=== PATIENT | male | born 1940 | race Caucasian/White ===

== ENCOUNTER 2018-10-03 09:45 | Emergency (ER) | payer MEDICARE, MEDICAID ==
--- OUTSIDE RECORDS SUMMARY | 2018-10-03 10:07 | XMS REPORT | Continuity of Care Document ---
:1940 External Reference #:[id number] Author Name Inder Ford M.D., [facility] Address [address] [place] [address] Care Team Providers Name Role Phone Kayla Whitten MD Care Team Information Mid Level Net Developer Unavailable Kayla Whitten MD Primary Care Physician Unavailable Payers Date Identification Numbers Payment Provider Subscriber Policy Number: [id number] Medicare Jatin Cárdenas PayID: [id number] [address] [place] [address] Policy Number: [id number] Medicaid Jatin Cárdenas Group Name: 1 2 [address] PayID: [id number] [place] [address] Advance Directives Description No Information Available Problems Active Problems Provider Date Benign essential hypertension Aston Hanson MD Onset: 01/06/2016 Mixed hyperlipidemia Aston Hanson MD Onset: 01/06/2016 Pure hypercholesterolemia Jakob Barba M.D. Onset: 09/26/2018 Family History Date Family Member(s) Observation Comments First Brother Alcoholism First Brother Fibromyalgia Social History Type Date Description Comments Sex Unknown Education Highest level completed, elementary school Marital Status Single Lives With Assisted Living alf elian Home Environment Lives In Adult Home Diet Patient is on a puree diet Occupation Disabled Occupation [employer] Work Status Retired Tobacco Use Start: Unknown End: Quit Unknown Smoking Status Reviewed: 09/26/18 Quit ETOH Use Denies alcohol use Recreational Drug Use Denies Drug Use Tobacco Use Start: Unknown End: Patient is a former Unknown smoker Exercise Type/Frequency Does not exercise Allergies, Adverse Reactions, Alerts Active Allergies Reaction Severity Comments Date Penicillin 01/13/2016 Aspirin 01/13/2016 Levofloxacin 01/13/2016 Simvastatin 01/13/2016 Simvastatin 01/19/2017 Levofloxacin 01/19/2017 Medications Active Medications SIG Qnty Indications Ordering Date Provider Metoprolol Tartrate Take 2 Tablets By 360tabs I48.0 Inder Ford 09/26 Mouth Twice Daily Agustin Zuñiga, FACC 9 25mg Tablets Active Life Convex Use use ad directed 1units K81.9 Freda, 1-pc Urostomy over the perc Christopher H., 9 Pouch/Durahesive/22 cholecystostomy drain Agustin mm opening Pouch Misc Divalproex Sodium 1 tab by mouth twice Unknown a day [address] Magaña 1 tab by mouth twice 60tabs Inder Ford 5mg Tablets daily Agustin Zuñiga, FACC 0 Senna 2 po once daily Unknown 8.6mg Tablets 0 Magnesium-Oxide 1 by mouth every day 30tabs Inder Ford Agustin Zuñiga, FACC 0 400(241.3mg) mg Tablets Glipizide ER 1 by mouth every day Unknown 2.5mg with dinner 0 Tablets ER 24HR Glipizide 1 by mouth once daily Unknown 10mg 0 Tablets Budesonide 1 by mouth three Unknown 3mg Caps times a day 0 DR Andrae Ranitidine 150 1 tab by mouth daily Unknown Maximum Strength 0 150mg Tablets Fiber-Lax 1 by mouth every day Unknown 625mg 0 Tablets Clopidogrel 1 by mouth every day Unknown Bisulfate 0 75mg Tablets Acetaminophen 2 by mouth every 4 Unknown 325mg hours as needed 0 Tablets Triple Antibiotic as Directed Unknown 0 3.5-400-5000 Ointment Phenytoin Sodium 2 capsules Twice Unknown Extended Daily 0 100mg Capsules Lisinopril Take 1 Tablet By 90tabs Inder Ford 2.5mg Mouth Every Day Agustin Zuñiga, FACC 0 Tablets Debrox 1-5 drop in right ear Unknown 6.5% twice a day x 3- 4 0 Solution days Citalopram 1 by mouth every day Unknown Hydrobromide 0 10mg Tablets Glucophage 1 by mouth twice a Unknown 500mg day 0 Tablets Diabetic Tussin uad Unknown 0 100mg/5ML Liquid Exelon apply 1 patch daily Unknown 9.5mg/24HR 0 Patches 24HR Atorvastatin 1 by mouth every day Unknown Calcium 0 20mg Tablets Multi-Day Vitamins 1 by mouth every day Unknown 0 Tablets History Medications Lorazepam take 1 tablet once. 1tabs F41.9 Aston Hanson, 05/03/2016 - 1mg Tablets MD 01/19/2017 Metoprolol Tartrate take one tablet by I48.0 Unknown - mouth twice daily 09/26/2018 100mg Tablets Apriso 2 caps by mouth Unknown - 0.375gm Caps ER twice a day 09/20/2018 24HR Famotidine 1 tab by mouth Unknown - 40mg Tablets every day Unknown Cure-ALL as Directed Unknown - Cream 09/20/2018 Cranberry Juice as Directed Unknown - Extract Unknown 1000mg Capsules Glimepiride 1 by mouth every Unknown - 4mg Tablets day Unknown Vitamin D3 High 1 by mouth every Unknown - Potency day Unknown 1000Unit Capsules Ferrous Sulfate 1 by mouth every Unknown - day Unknown 325(65Fe) mg Tablets Plavix 1 by mouth every Unknown - 75mg Tablets day Unknown Tylenol 2 by mouth every 4 Unknown - 325mg Tablets hours as needed Unknown Dilantin 200 mg po bid Unknown - 100mg Capsules Unknown Celexa one po @ hs Unknown - 10mg Tablets Unknown Antacid 10 milliliters Unknown - every 8 hours as 02/09/2017 [id number] needed Suspension Loperamide HCL 1 by mouth after Unknown - 2mg each unformed bm Unknown Tablets (max 8 times daily) Fiber-Lax 1 by mouth prn Unknown - 500mg Tablets Unknown Metformin HCL 1 by mouth twice a Unknown - 500mg day 01/19/2017 Tablets Amaryl take one bid Unknown - 2mg Tablets Unknown Levothyroxine Sodium 1 by mouth every Unknown - day Unknown 50mcg Tablets Ascorbic Acid 1 by mouth every Unknown - 500mg day 01/19/2017 Tablets Vitamin D 1 po daily Unknown - 3000Units Unknown Immunizations CPT Code Status Date Vaccine Lot # [id number] Given 03/21/2000 flu vaccination 76229 Given 03/10/1999 Influenza Virus Vaccine 60158 Given 03/10/1999 Influenza Virus Whole 63637 Given 03/18/1998 Influenza Virus Vaccine 04316 Given 04/24/1997 Influenza Virus Vaccine 35059 Given 05/23/1996 Influenza Virus Vaccine 81110 Given 07/13/1995 Tetnus Injection 16937 Given 07/13/1995 DT Vaccine Younger Than 7 Yrs 35581 Given 04/21/1994 Influenza Virus Vaccine Vital Signs Date Vital Result Comment 09/26/2018 3:15pm BP Systolic Sitting Right Arm 129 mmHg BP Diastolic Sitting Right Arm 56 mmHg Heart Rate 68 /min Respiratory Rate 16 /min Height 67 inches 5'7" Weight 135.00 lb BMI (Body Mass Index) 21.1 kg/m2 BSA (Body Surface Area) 1.71 m2 Snelling body weight in kilograms 67 kg O2 % BldC Oximetry 95 % ra 09/20/2018 11:09am BP Systolic 105 mmHg BP Diastolic 58 mmHg Heart Rate 58 /min Height 67 inches 5'7" Weight 141.00 lb BMI (Body Mass Index) 22.1 kg/m2 BSA (Body Surface Area) 1.74 m2 Snelling body weight in kilograms 67 kg O2 % BldC Oximetry 99 % 01/19/2017 11:48am BP Systolic 142 mmHg BP Diastolic 80 mmHg Height 67 inches 5'7" Weight 165.00 lb BMI (Body Mass Index) 25.8 kg/m2 BSA (Body Surface Area) 1.86 m2 Snelling body weight in kilograms 67 kg 05/03/2016 1:50pm BP Systolic Sitting Left Arm 122 mmHg BP Diastolic Sitting Left Arm 60 mmHg Heart Rate 78 /min Height 67 inches 5'7" Weight 167.00 lb BMI (Body Mass Index) 26.2 kg/m2 BSA (Body Surface Area) 1.87 m2 O2 % BldC Oximetry 94 % 01/13/2016 2:27pm BP Systolic Sitting Right Arm 132 mmHg BP Diastolic Sitting Right Arm 68 mmHg Heart Rate 91 /min Respiratory Rate 16 /min Height 67 inches 5'7" Weight 171.00 lb BMI (Body Mass Index) 26.8 kg/m2 BSA (Body Surface Area) 1.89 m2 Snelling body weight in kilograms 67 kg O2 % BldC Oximetry 95 % Results Test Date Facility Test Result H/L Range Note Xray 02/15/2017 [facility] - Radiology Gallbladder gbef 78%; wnl [address] ([address]) [place] [address] [phone] CBC 01/05/2017 [facility] White Blood Count 5.9 K/uL N 3.4-10.5 1 [address] [place] [address] [phone] Red Blood Count 4.00 M/uL Low 4.20-5.80 Hemoglobin 12.6 gm/dL Low 12.8-17.0 Hematocrit 36.1 % Low 38.0-48.0 Mean Cell Volume 90.3 fl N 80.0-96.0 Mean Corpuscular HGB 31.5 pg N 27.0-33.0 Mean Corpuscular HGB Conc 34.9 g/dL N 31.7-36.0 Platelet Count 188 K/uL N 150-400 Red Cell Distri Width %CV 14.1 % N 11.6-15.8 Mean Platelet Volume 9.9 fL N 6.6-10.6 Basic Metabolic Panel 01/05/2017 [facility] Glucose 130 mg/dL High 74-106 [address] [place], [place] [id number] [phone] BUN 9 mg/dL N 7-18 Creatinine 0.4 mg/dL Low 0.6-1.3 Glom Filtration Rate, Estimate >60 mL/min >60 If >60 mL/min >60 2 BUN/Creat 22.5 ratio Sodium 146 mmol/L High 136-145 Potassium 3.4 mmol/L Low 3.5-5.1 Chloride 114 mmol/L High 98-107 Carbon Dioxide 23 mmol/L N 21-32 Anion Gap 9 mEq/L N 8-16 Calcium 8.4 mg/dL Low 8.5-10.1 Capillary blood 01/05/2017 N2N/CCD Import Capillary blood 136 High 70- 110 glucose glucose measurement measurement by by glucometer glucometer (mass/volume) WBC # Bld Auto 01/05/2017 N2N/CCD Import WBC # Bld Auto 5.9 3.4-10.5 Sodium SerPl-sCnc 01/05/2017 N2N/CCD Import Sodium SerPl-sCnc 144 136- 145 RDW RBC Auto-Rto 01/05/2017 N2N/CCD Import RDW RBC Auto-Rto 14.1 11.6- 15.8 Potassium 01/05/2017 N2N/CCD Import Potassium 3.4 Low 3.5-5.1 SerPl-sCnc SerPl-sCnc Platelets 01/05/2017 N2N/CCD Import Platelets 188 150-400 [#/volume] in [#/volume] in Blood Blood by by Automated count Automated count PMV Bld Auto 01/05/2017 N2N/CCD Import PMV Bld Auto 9.9 6.6-10.6 MCV RBC Auto 01/05/2017 N2N/CCD Import MCV RBC Auto 90.3 80.0-96.0 Hct VFr Bld Auto 01/05/2017 N2N/CCD Import Hct VFr Bld Auto 36.1 Low 38.0 -48.0 Basic Metabolic 01/05/2017 [facility] Glucose 131 High 74-[address] mg/dL [place], [place] [id number] [phone] BUN 11 mg/dL N 7-18 Creatinine 0.5 mg/dL Low 0.6-1.3 Glom Filtration Rate, Estimate >60 mL/min >60 If >60 mL/min >60 3 BUN/Creat 22.0 ratio Sodium 144 mmol/L N 136-145 Potassium 3.4 mmol/L Low 3.5-5.1 Chloride 113 mmol/L High 98-107 Carbon Dioxide 23 mmol/L N 21-32 Anion Gap 8 mEq/L N 8-16 Calcium 8.6 mg/dL N 8.5-10.1 Laboratory test 01/05/2017 [facility] C-Reactive 19.5 mg/L High <3.[address] Protein,Quant [place], [place] [id number] [phone] Anion Gap 01/05/2017 N2N/CCD Import Anion Gap 8 8-16 SerPl-sCnc SerPl-sCnc Automated 01/05/2017 N2N/CCD Import Automated 31.5 27.0-33 erythrocyte mean erythrocyte mean .0 corpuscular corpuscular hemoglobin hemoglobin (mass per erythrocyte) Automated 01/05/2017 N2N/CCD Import Automated 34.9 31.7-36 erythrocyte mean erythrocyte mean .0 corpuscular corpuscular hemoglobin hemoglobin concentration measurement (mass/volume) BUN SerPl-mCnc 01/05/2017 N2N/CCD Import BUN SerPl-mCnc 11 7-18 BUN/Creat SerPl 01/05/2017 N2N/CCD Import BUN/Creat SerPl 22.0 Glucose 01/05/2017 N2N/CCD Import Glucose 131 High 74-106 [Mass/volume] in [Mass/volume] in Serum or Plasma Serum or Plasma Creat SerPl-mCnc 01/05/2017 N2N/CCD Import Creat SerPl-mCnc 0.5 Low 0.6- 1.3 Chloride 01/05/2017 N2N/CCD Import Chloride 113 High 98-107 SerPl-sCnc SerPl-sCnc Blood 01/05/2017 N2N/CCD Import Blood 4.00 Low 4.20-5. erythrocytes erythrocytes 80 automated count automated count (number/volume) (number/volume) Blood hemoglobin 01/05/2017 N2N/CCD Import Blood hemoglobin 12.6 Low 12.8 -17 measurement measurement .0 (mass/volume) (mass/volume) Co2 SerPl-sCnc 01/05/2017 N2N/CCD Import Co2 SerPl-sCnc 23 21-32 Calcium 01/05/2017 N2N/CCD Import Calcium 8.6 8.5-10. SerPl-mCnc SerPl-mCnc 1 Protime 01/04/2017 [facility] Protime 22.2 High 12.0-[address] seconds .4 [place] [address] [phone] Inr 2.0 High 0.9-1.1 4 Laboratory test 01/04/2017 [facility] Act Partial 45.9 High 23.4-35.0 [address] [place] [place] [address] [phone] Serum or plasma 01/04/2017 N2N/CCD Import Serum or plasma 0.2 0.2-1.0 total bilirubin total bilirubin measurement measurement (mass/ (mass/volume) Prot SerPl-mCnc 01/04/2017 N2N/CCD Import Prot SerPl-mCnc 5.8 Low 6.4- 8.2 Globulin Ser 01/04/2017 N2N/CCD Import Globulin Ser 3.3 1.9-4.3 Calc-mCnc Calc-mCnc Aspartate 01/04/2017 N2N/CCD Import Aspartate 48 High 15-37 aminotransferase aminotransferase [Enzymatic [Enzymatic activity/vol activity/volume] in Serum or Plasma Albumin/Glob 01/04/2017 N2N/CCD Import Albumin/Glob 0.8 SerPl SerPl Albumin 01/04/2017 N2N/CCD Import Albumin 2.5 Low 3.4-5.0 SerPl-mCnc SerPl-mCnc Alt SerPl-cCnc 01/04/2017 N2N/CCD Import Alt SerPl-cCnc 74 12-78 Alp SerPl-cCnc 01/04/2017 N2N/CCD Import Alp SerPl-cCnc 167 High 45-117 Laboratory test 01/04/2017 [facility] Magnesium 1.6 Low 1.8-2.[address] mg/dL [place], [place] [id number] [phone] C-Reactive Protein,Quant 28.2 mg/L High <3.0 Comprehensive Metabolic 01/04/2017 [facility] Glucose 109 mg/dL High 74-[address] [place], [place] [id number] [phone] BUN 7 mg/dL N 7-18 Creatinine 0.5 mg/dL Low 0.6-1.3 Glom Filtration Rate, Estimate >60 mL/min >60 If >60 mL/min >60 6 BUN/Creat 14.0 ratio Sodium 147 mmol/L High 136-145 Potassium 3.5 mmol/L N 3.5-5.1 Chloride 115 mmol/L High 98-107 Carbon Dioxide 23 mmol/L N 21-32 Anion Gap 9 mEq/L N 8-16 Calcium 8.5 mg/dL N 8.5-10.1 Total Protein 5.8 g/dL Low 6.4-8.2 Albumin 2.5 g/dL Low 3.4-5.0 Globulin 3.3 g/dL N 1.9-4.3 Alb/Glob 0.8 ratio Bilirubin,Total 0.2 mg/dL N 0.2-1.0 Sgot/Ast 48 U/L High 15-37 SGPT/Alt 74 U/L N 12-78 Alkaline Phosphatase 167 U/L High 45-117 Basic Metabolic Panel 01/04/2017 [facility] Glucose 108 mg/dL High 74-106 [address] [place] [address] [phone] BUN 7 mg/dL N 7-18 Creatinine 0.5 mg/dL Low 0.6-1.3 Glom Filtration Rate, Estimate >60 mL/min >60 If >60 mL/min >60 7 BUN/Creat 14.0 ratio Sodium 147 mmol/L High 136-145 Potassium 3.6 mmol/L N 3.5-5.1 Chloride 115 mmol/L High 98-107 Carbon Dioxide 24 mmol/L N 21-32 Anion Gap 8 mEq/L N 8-16 Calcium 8.6 mg/dL N 8.5-10.1 CBC 01/04/2017 [facility] White Blood Count 4.7 K/uL N 3.4-10.5 [address] [place] [address] [phone] Red Blood Count 3.95 M/uL Low 4.20-5.80 Hemoglobin 12.5 gm/dL Low 12.8-17.0 Hematocrit 36.0 % Low 38.0-48.0 Mean Cell Volume 91.1 fl N 80.0-96.0 Mean Corpuscular HGB 31.6 pg N 27.0-33.0 Mean Corpuscular HGB Conc 34.7 g/dL N 31.7-36.0 Platelet Count 178 K/uL N 150-400 Red Cell Distri Width %CV 13.9 % N 11.6-15.8 Mean Platelet Volume 11.0 fL High 6.6-10.6 * Miscellaneous 01/04/2017 N2N/CCD Import * Miscellaneous Unable to add studies (set) studies (set) tests Aot Request 01/04/2017 [facility] Aot Request Unable to add [address] te <SEE NOTE> [place] [id number] [phone] Tests to be added: PTT INR PT Prothrombin time 01/04/2017 N2N/CCD Import Prothrombin time 22.2 High 12.0-14.4 (PT) in platelet (PT) in platelet poor plasma by c poor plasma by coagulation assay Comprehensive 01/03/2017 [facility] Glucose 129 mg/dL High 74-106 Metabolic Panel [address] [place] [address] [phone] BUN 7 mg/dL N 7-18 Creatinine 0.5 mg/dL Low 0.6-1.3 Glom Filtration Rate, Estimate >60 mL/min >60 If >60 mL/min >60 9 BUN/Creat 14.0 ratio Sodium 144 mmol/L N 136-145 Potassium 3.6 mmol/L N 3.5-5.1 Chloride 112 mmol/L High 98-107 Carbon Dioxide 23 mmol/L N 21-32 Anion Gap 9 mEq/L N 8-16 Calcium 8.5 mg/dL N 8.5-10.1 Total Protein 5.8 g/dL Low 6.4-8.2 Albumin 2.5 g/dL Low 3.4-5.0 Globulin 3.3 g/dL N 1.9-4.3 Alb/Glob 0.8 ratio Bilirubin,Total 0.2 mg/dL N 0.2-1.0 Sgot/Ast 46 U/L High 15-37 SGPT/Alt 82 U/L High 12-78 Alkaline Phosphatase 154 U/L High 45-117 Basic Metabolic Panel 01/03/2017 [facility] Glucose 130 mg/dL High 74-106 [address] [place] [address] [phone] BUN 7 mg/dL N 7-18 Creatinine 0.5 mg/dL Low 0.6-1.3 Glom Filtration Rate, Estimate >60 mL/min >60 If >60 mL/min >60 10 BUN/Creat 14.0 ratio Sodium 145 mmol/L N 136-145 Potassium 3.6 mmol/L N 3.5-5.1 Chloride 115 mmol/L High 98-107 Carbon Dioxide 23 mmol/L N 21-32 Anion Gap 7 mEq/L Low 8-16 Calcium 8.6 mg/dL N 8.5-10.1 CBC 01/03/2017 [facility] White Blood Count 4.8 K/uL N 3.4-10.5 [address] [place] [address] [phone] Red Blood Count 3.73 M/uL Low 4.20-5.80 Hemoglobin 11.9 gm/dL Low 12.8-17.0 Hematocrit 34.4 % Low 38.0-48.0 Mean Cell Volume 92.2 fl N 80.0-96.0 Mean Corpuscular HGB 31.9 pg N 27.0-33.0 Mean Corpuscular HGB Conc 34.6 g/dL N 31.7-36.0 Platelet Count 161 K/uL N 150-400 Red Cell Distri Width %CV 14.0 % N 11.6-15.8 Mean Platelet Volume 11.1 fL High 6.6-10.6 Laboratory test 01/03/2017 [facility] Magnesium 1.6 mg/dL Low 1.8-2.4 finding [address] [place] [address] [phone] C-Reactive Protein,Quant 53.0 mg/L High <3.0 Anaerobic blood 01/02/2017 N2N/CCD Import Anaerobic blood No Growth culture culture Bacteria Bld 01/02/2017 N2N/CCD Import Bacteria Bld No Growth Aerobe Cult Aerobe Cult CBC 01/02/2017 [facility] White Blood Count 7.0 K/uL N 3.4-10.5 [address] [place] [address] [phone] Red Blood Count 3.81 M/uL Low 4.20-5.80 Hemoglobin 12.0 gm/dL Low 12.8-17.0 Hematocrit 35.1 % Low 38.0-48.0 Mean Cell Volume 92.1 fl N 80.0-96.0 Mean Corpuscular HGB 31.5 pg N 27.0-33.0 Mean Corpuscular HGB Conc 34.2 g/dL N 31.7-36.0 Platelet Count 152 K/uL N 150-400 Red Cell Distri Width %CV 14.0 % N 11.6-15.8 Mean Platelet Volume 11.1 fL High 6.6-10.6 Comprehensive Metabolic 01/02/2017 [facility] Glucose 131 mg/dL High 74-106 Panel [address] [place] [address] [phone] BUN 12 mg/dL N 7-18 Creatinine 0.5 mg/dL Low 0.6-1.3 Glom Filtration Rate, Estimate >60 mL/min >60 If >60 mL/min >60 11 BUN/Creat 24.0 ratio Sodium 144 mmol/L N 136-145 Potassium 3.9 mmol/L N 3.5-5.1 Chloride 113 mmol/L High 98-107 Carbon Dioxide 22 mmol/L N 21-32 Anion Gap 9 mEq/L N 8-16 Calcium 8.4 mg/dL Low 8.5-10.1 Total Protein 5.9 g/dL Low 6.4-8.2 Albumin 2.5 g/dL Low 3.4-5.0 Globulin 3.4 g/dL N 1.9-4.3 Alb/Glob 0.7 ratio Bilirubin,Total 0.3 mg/dL N 0.2-1.0 Sgot/Ast 71 U/L High 15-37 SGPT/Alt 112 U/L High 12-78 Alkaline Phosphatase 160 U/L High 45-117 Basic Metabolic Panel 01/02/2017 [facility] Glucose 139 mg/dL High 74-[address] [place] [address] [phone] BUN 13 mg/dL N 7-18 Creatinine 0.5 mg/dL Low 0.6-1.3 Glom Filtration Rate, Estimate >60 mL/min >60 If >60 mL/min >60 12 BUN/Creat 26.0 ratio Sodium 144 mmol/L N 136-145 Potassium 3.9 mmol/L N 3.5-5.1 Chloride 113 mmol/L High 98-107 Carbon Dioxide 23 mmol/L N 21-32 Anion Gap 8 mEq/L N 8-16 Calcium 8.4 mg/dL Low 8.5-10.1 Blood Culture 01/02/2017 [facility] Blood Culture NO GROWTH: FINAL [address] Aerobic <SEE NOTE> [place] [address] [phone] Blood Culture Anaerobic NO GROWTH: FINAL <SEE NOTE> 14 Laboratory test 01/02/2017 [facility] Act Partial 45.2 High 23.4-35.[address] [place] [place] [address] [phone] Protime 01/02/2017 [facility] Protime 18.3 High 12.0-14.[address] [place] [address] [phone] Inr 1.6 High 0.9-1.1 15 Blood Culture 01/02/2017 [facility] Blood Culture NO GROWTH: FINAL [address] Aerobic <SEE NOTE> [place] [address] [phone] Blood Culture Anaerobic NO GROWTH: FINAL <SEE NOTE> 17 RDW RBC Auto 01/01/2017 N2N/CCD Import RDW RBC Auto 46.3 36-51 Neutrophils/leuk 01/01/2017 N2N/CCD Import Neutrophils/leuk 91.2 High 33.0-73.0 NFr Bld Auto NFr Bld Auto Neutrophils # Bld 01/01/2017 N2N/CCD Import Neutrophils # Bld 10.83 High 1.8-7.0 Auto Auto Monocytes/leuk 01/01/2017 N2N/CCD Import Monocytes/leuk 5.7 0.0-10.0 NFr Bld Auto NFr Bld Auto Lymphocytes/leuk 01/01/2017 N2N/CCD Import Lymphocytes/leuk 2.9 Low 20.0- 42.0 NFr Bld Auto NFr Bld Auto Lymphocytes 01/01/2017 N2N/CCD Import Lymphocytes 0.34 Low 1.0-4.0 [#/volume] in [#/volume] in Blood by Blood by Automated count Automated count Hgb A1c MFr Bld 01/01/2017 N2N/CCD Import Hgb A1c MFr Bld 7.4 High 4.2- 6.3 Lactic Acid 01/01/2017 [facility] Lactic Acid 1.8 mmol/L N 0.4-1.[address] [place] [address] [phone] Lab Reflex >2.0 for Sepsis? N Lactate 01/01/2017 N2N/CCD Import Lactate 1.8 0.4-1.9 [Moles/volume] in [Moles/volume] in Serum or Plasma Serum or Plasma CBS W/Automated 01/01/2017 [facility] White Blood Count 11.9 High 3.4-10.[address] K/[place] [address] [phone] Red Blood Count 3.80 M/uL Low 4.20-5.80 Hemoglobin 12.0 gm/dL Low 12.8-17.0 Hematocrit 34.9 % Low 38.0-48.0 Mean Cell Volume 91.8 fl N 80.0-96.0 Mean Corpuscular HGB 31.6 pg N 27.0-33.0 Mean Corpuscular HGB Conc 34.4 g/dL N 31.7-36.0 Platelet Count 146 K/uL Low 150-400 Red Cell Distri Width SD 46.3 fl N 36-51 Red Cell Distri Width %CV 14.3 % N 11.6-15.8 Mean Platelet Volume 10.9 fL High 6.6-10.6 Neut% 91.2 % High 33.0-73.0 Lymph % 2.9 % Low 20.0-42.0 Gosper % 5.7 % N 0.0-10.0 Eo% 0.1 % N 0.0-6.6 Bas% 0.1 % N 0.0-1.1 Neut# 10.83 K/uL High 1.8-7.0 Lymph # 0.34 K/uL Low 1.0-4.0 Gosper # 0.68 K/uL N 0.0-0.8 Eos # 0.01 K/uL N 0.0-0.5 Baso # 0.01 K/uL N 0.0-0.1 Glycohemoglobin 01/01/2017 [facility] Glycohemoglobin 7.4 % High 4.2-6.[address] (A1c) [place] [address] [phone] eAG 166 mg/dL Comprehensive Metabolic 01/01/2017 [facility] Glucose 128 mg/dL High 74-[address] [place] [address] [phone] BUN 24 mg/dL High 7-18 Creatinine 0.6 mg/dL N 0.6-1.3 Glom Filtration Rate, Estimate >60 mL/min >60 If >60 mL/min >60 19 BUN/Creat 40.0 ratio Sodium 146 mmol/L High 136-145 Potassium 3.8 mmol/L N 3.5-5.1 Chloride 115 mmol/L High 98-107 Carbon Dioxide 22 mmol/L N 21-32 Anion Gap 9 mEq/L N 8-16 Calcium 8.2 mg/dL Low 8.5-10.1 Total Protein 5.8 g/dL Low 6.4-8.2 Albumin 2.6 g/dL Low 3.4-5.0 Globulin 3.2 g/dL 1.9-4.3 Alb/Glob 0.8 ratio Bilirubin,Total 0.4 mg/dL N 0.2-1.0 Sgot/Ast 140 U/L High 15-37 SGPT/Alt 159 U/L High 12-78 Alkaline Phosphatase 178 U/L High 45-117 Basophils 01/01/2017 N2N/CCD Import Basophils 0.01 0.0-0.1 [#/volume] in [#/volume] in Blood by Blood by Automated count Automated count Basophils/leuk 01/01/2017 N2N/CCD Import Basophils/leuk 0.1 0.0-1.1 NFr Bld Auto NFr Bld Auto Blood glucose 01/01/2017 N2N/CCD Import Blood glucose 166 mean value mean value measurement measurement estimated fro estimated from glycated hemoglobin (mass/volume) Blood monocytes 01/01/2017 N2N/CCD Import Blood monocytes 0.68 0.0-0.8 automated count automated count (number/volume) (number/volume) Eosinophil # Bld 01/01/2017 N2N/CCD Import Eosinophil # Bld 0.01 0.0- 0.5 Auto Auto Eosinophil/leuk 01/01/2017 N2N/CCD Import Eosinophil/leuk 0.1 0.0-6.6 NFr Bld Auto NFr Bld Auto Unloinc 12/31/2016 N2N/CCD Import Unloinc See Note 20 Blood Culture 12/31/2016 [facility] Blood Culture GRAM NEGATIVE [address] Aerobic BA <SEE NOTE> [place] [address] [phone] Quantity FROM BROTH N Blood Culture Anaerobic NO GROWTH: FINAL <SEE NOTE> 22 [id number]-GN67 12/31/2016 [facility] Trimethoprim/Sulfamethoxazole <=[address] [place] [address] [phone] Ampicillin <=2 S Cefazolin <=4 S Ampicillin/Sulbactam <=2 S Ciprofloxacin >=4 R Piperacillin/Tazobactam <=4 S Ceftazidime <=1 S Ceftriaxone <=1 S Cefepime <=1 S Levofloxacin >=8 R Imipenem 0.5 S Gentamicin <=1 S Tobramycin <=1 S Blood Culture 12/31/2016 [facility] Blood Culture NO GROWTH: FINAL [address] Aerobic <SEE NOTE> [place] [address] [phone] Blood Culture Anaerobic NO GROWTH: FINAL <SEE NOTE> 24 Comprehensive Metabolic 12/31/2016 [facility] Glucose 324 mg/dL High 74-[address] [place], [place] [id number] [phone] BUN 24 mg/dL High 7-18 Creatinine 1.0 mg/dL N 0.6-1.3 Glom Filtration Rate, Estimate >60 mL/min >60 If >60 mL/min >60 25 BUN/Creat 24.0 ratio Sodium 142 mmol/L N 136-145 Potassium 3.8 mmol/L N 3.5-5.1 Chloride 110 mmol/L High 98-107 Carbon Dioxide 19 mmol/L Low 21-32 Anion Gap 13 mEq/L N 8-16 Calcium 9.3 mg/dL N 8.5-10.1 Total Protein 6.9 g/dL N 6.4-8.2 Albumin 3.3 g/dL Low 3.4-5.0 Globulin 3.6 g/dL N 1.9-4.3 Alb/Glob 0.9 ratio Bilirubin,Total 0.8 mg/dL N 0.2-1.0 Sgot/Ast 339 U/L High 15-37 SGPT/Alt 252 U/L High 12-78 Alkaline Phosphatase 233 U/L High 45-117 Blood platelet 12/31/2016 N2N/CCD Import Blood platelet Normal adequacy adequacy detection by detection by light microsc light microscopy Eosinophil % 12/31/2016 N2N/CCD Import Eosinophil % 1 0-5 Lymphocytes/100 12/31/2016 N2N/CCD Import Lymphocytes/100 3 Low 20-42 leukocytes in leukocytes in Blood by Manual Blood by Manual coun count Metamyelocytes/10 12/31/2016 N2N/CCD Import Metamyelocytes/1 2 High -0 0 leukocytes in 00 leukocytes in Blood by Manual c Blood by Manual count Monocytes/100 12/31/2016 N2N/CCD Import Monocytes/100 4 0-10 leukocytes in leukocytes in Blood by Manual Blood by Manual count count Neuts Band/leuk 12/31/2016 N2N/CCD Import Neuts Band/leuk 17 High 0-8 NFr Bld Manual NFr Bld Manual Neuts Seg/leuk 12/31/2016 N2N/CCD Import Neuts Seg/leuk 73 33-73 NFr Bld Manual NFr Bld Manual RBC morphology 12/31/2016 N2N/CCD Import RBC morphology Normal Serum or plasma 12/31/2016 N2N/CCD Import Serum or plasma 8.3 Low 10.0- 20.0 phenytoin phenytoin measurement measurement (mass/volume (mass/volume) Total Cells 12/31/2016 N2N/CCD Import Total Cells 100 Counted Bld Counted Bld Unloinc 12/31/2016 N2N/CCD Import Unloinc Diff Ordered Ketones Ur 12/31/2016 N2N/CCD Import Ketones Ur Trace High Negative Strip.auto-mCnc Strip.auto-mCnc Epithelial cells 12/31/2016 N2N/CCD Import Epithelial cells Very Few None Seen [Presence] in [Presence] in Urine sediment by Urine sediment L by Light microscopy Color Ur 12/31/2016 N2N/CCD Import Color Ur Yellow Yellow Laboratory test 12/31/2016 [facility] Lactic Acid 3.2 mmol/L High 0.4-1.9 26 finding [address] [place] [address] [phone] Leukocyte 12/31/2016 N2N/CCD Import Leukocyte Trace High Negative esterase Ur Ql esterase Ur Ql Strip.auto Strip.auto Mucus [Presence] 12/31/2016 N2N/CCD Import Mucus [Presence] Moderate None Seen in Urine sediment in Urine by Light micros sediment by Light microscopy Nitrite Ur Ql 12/31/2016 N2N/CCD Import Nitrite Ur Ql Negative Negative Strip.auto Strip.auto Prot Ur 12/31/2016 N2N/CCD Import Prot Ur Negative Negative Strip.auto-mCnc Strip.auto-mCnc Specific gravity 12/31/2016 N2N/CCD Import Specific gravity 1.020 1.010- 1.030 of Urine by of Urine by Automated test Automated test strip strip Urine appearance 12/31/2016 N2N/CCD Import Urine appearance Clear Clear determination determination Urine hemoglobin 12/31/2016 N2N/CCD Import Urine hemoglobin Negative Negative detection by detection by automated test automated test strip strip Urine total 12/31/2016 N2N/CCD Import Urine total Negative Negative bilirubin bilirubin detection by detection by automated test automated test strip Urobilinogen Ur 12/31/2016 N2N/CCD Import Urobilinogen Ur 1.0 0.2-1.0 Strip-aCnc Strip-aCnc pH Ur Strip.auto 12/31/2016 N2N/CCD Import pH Ur Strip.auto 5.5 Low 6.5- 7.5 Laboratory test 12/31/2016 [facility] Legionella Negative Negative [address] Antigen,Urine [place], [place] [id number] [phone] Streptococcus 12/31/2016 [facility] Specimen Source Urine . Pneumoniae Ag,Ur [address] [place], [place] [id number] [phone] Streptococcus Pneumoniae Ag,Ur NEGATIVE Negative Body Fluid Culture, Sterile Not Indicated . Organism Id Not indicated. . Please Note: (SEE NOTE) 28 Bacteria 12/31/2016 N2N/CCD Import Bacteria Not . identification by identification by indicated. sterile body fluid sterile body fluid cult culture Bacteria 12/31/2016 N2N/CCD Import Bacteria Not Indicated . identification identification detection in detection in isolate by cu isolate by culture Specimen source 12/31/2016 N2N/CCD Import Specimen source Urine . identification of identification of unspecified spec unspecified specimen Streptococcus 12/31/2016 N2N/CCD Import Streptococcus Negative Negative pneumoniae antigen pneumoniae antigen detection detection Basic Metabolic 01/11/2016 [facility] Basic Metabolic <pending> [address] [place] [address] [phone] Glucose 135 mg/dL High 74-106 BUN 23 mg/dL High 7-18 Creatinine 0.6 mg/dL 0.6-1.3 Glom Filtration Rate, Estimate >60 mL/min >60 If >60 mL/min >60 30 BUN/Creat 38.3 ratio Sodium 145 mmol/L 136-145 Potassium 3.7 mmol/L 3.5-5.1 Chloride 113 mmol/L High 98-107 Carbon Dioxide 23 mmol/L 21-32 Anion Gap 9 mEq/L 8-16 Calcium 8.9 mg/dL 8.5-10.1 Laboratory test 01/11/2016 [facility] C-Reactive 16.6 High <3.[address] Protein,Quant mg/[place] [address] [phone] CBC 01/11/2016 [facility] White Blood Count 7.3 K/uL 3.4-10.5 [address] [place] [address] [phone] Red Blood Count 4.69 M/uL 4.20-5.80 Hemoglobin 12.3 gm/dL Low 12.8-17.0 Hematocrit 37.6 % Low 38.0-48.0 Mean Cell Volume 80.2 fl 80.0-96.0 Mean Corpuscular HGB 26.2 pg Low 27.0-33.0 Mean Corpuscular HGB Conc 32.7 g/dL 31.7-36.0 Platelet Count 271 K/uL 150-400 Red Cell Distri Width %CV 22.2 % High 11.6-15.8 Mean Platelet Volume 10.4 fL 6.6-10.6 Laboratory test 01/11/2016 [facility] Path Review: <pending> finding [address] [place] [address] [phone] Laboratory test 01/06/2016 N2N/CCD Import Bedside 217 High 70-110 finding Glucose Laboratory test 01/06/2016 [facility] Vancomycin,Tro 8.0 ug/mL Low 15.0-2 finding [address] ugh 0.0 [place] [address] [phone] Basic Metabolic 01/06/2016 [facility] Glucose 148 mg/dL High 74-106 Panel [address] [place] [address] [phone] BUN 11 mg/dL 7-18 Creatinine 0.7 mg/dL 0.6-1.3 Glom Filtration Rate, Estimate >60 mL/min >60 If >60 mL/min >60 31 BUN/Creat 15.7 ratio Sodium 141 mmol/L 136-145 Potassium 3.8 mmol/L 3.5-5.1 Chloride 109 mmol/L High 98-107 Carbon Dioxide 24 mmol/L 21-32 Anion Gap 8 mEq/L 8-16 Calcium 8.7 mg/dL 8.5-10.1 Laboratory test finding 01/06/2016 [facility] Magnesium 1.9 mg/dL 1.8-2.4 [address] [place] [address] [phone] C-Reactive Protein,Quant 74.9 mg/L High <3.0 CBC 01/06/2016 [facility] White Blood Count 6.3 K/uL 3.4-10.5 [address] [place] [address] [phone] Red Blood Count 4.72 M/uL 4.20-5.80 Hemoglobin 12.0 gm/dL Low 12.8-17.0 Hematocrit 37.7 % Low 38.0-48.0 Mean Cell Volume 79.9 fl Low 80.0-96.0 Mean Corpuscular HGB 25.4 pg Low 27.0-33.0 Mean Corpuscular HGB Conc 31.8 g/dL 31.7-36.0 Platelet Count 207 K/uL 150-400 Red Cell Distri Width %CV 22.2 % High 11.6-15.8 Mean Platelet Volume 10.8 fL High 6.6-10.6 Laboratory test finding 01/06/2016 N2N/CCD Import Carbon Dioxide Level 24 21-32 RDW Coefficient of Variation 22.2 High 11.6-15.8 Sodium Level 141 136-145 Comprehensive Metabolic 01/05/2016 [facility] Glucose 158 mg/dL High 74-106 Panel [address] [place], [place] [address] [phone] BUN 17 mg/dL 7-18 Creatinine 0.5 mg/dL Low 0.6-1.3 Glom Filtration Rate, Estimate >60 mL/min >60 If >60 mL/min >60 32 BUN/Creat 34.0 ratio Sodium 139 mmol/L 136-145 Potassium 3.5 mmol/L 3.5-5.1 Chloride 107 mmol/L 98-107 Carbon Dioxide 24 mmol/L 21-32 Anion Gap 8 mEq/L 8-16 Calcium 8.6 mg/dL 8.5-10.1 Total Protein 6.3 g/dL Low 6.4-8.2 Albumin 3.0 g/dL Low 3.4-5.0 Globulin 3.3 g/dL 1.9-4.3 Alb/Glob 0.9 ratio Bilirubin,Total 0.3 mg/dL 0.2-1.0 Sgot/Ast 70 U/L High 15-37 SGPT/Alt 65 U/L 12-78 Alkaline Phosphatase 97 U/L 45-117 Laboratory test 01/05/2016 [facility] Phenytoin 5.1 ug/mL Low 10.0-20.[address] (Dilantin) [place] [address] [phone] CBC W/Automated 01/05/2016 [facility] White Blood 6.5 K/uL 3.4-10.[address] [place] [address] [phone] Red Blood Count 4.38 M/uL 4.20-5.80 Hemoglobin 11.3 gm/dL Low 12.8-17.0 Hematocrit 34.9 % Low 38.0-48.0 Mean Cell Volume 79.7 fl Low 80.0-96.0 Mean Corpuscular HGB 25.8 pg Low 27.0-33.0 Mean Corpuscular HGB Conc 32.4 g/dL 31.7-36.0 Platelet Count 161 K/uL 150-400 Red Cell Distri Width SD 60.9 fl High 36-51 Red Cell Distri Width %CV 21.9 % High 11.6-15.8 Mean Platelet Volume 10.9 fL High 6.6-10.6 Neut% 74.5 % High 33.0-73.0 Lymph % 10.2 % Low 17.0-56.0 Gosper % 11.3 % High 0.0-10.0 Eo% 3.7 % 0.0-5.0 Bas% 0.3 % 0.1-1.0 Neut# 4.81 K/uL 1.8-7.0 Lymph # 0.66 K/uL Low 1.8-7.0 Gosper # 0.73 K/uL 0.0-0.8 Eos # 0.24 K/uL 0.0-0.5 Baso # 0.02 K/uL Low 0.1-0.2 Glycohemoglobin 01/05/2016 [facility] Glycohemoglobin 6.8 % High 4.2-6.[address] (A1c) [place] [address] [phone] eAG 148 mg/dL Laboratory test 01/05/2016 N2N/CCD Import Basophils # (Auto) 0.02 Low 0.1 -0.2 finding Basophils (%) (Auto) 0.3 0.1-1.0 Eosinophils # (Auto) 0.24 0.0-0.5 Eosinophils (%) (Auto) 3.7 0.0-5.0 Estimated Average Glucose (eAG) 148 Hemoglobin A1c 6.8 High 4.2-6.3 Lymphocytes # (Auto) 0.66 Low 1.8-7.0 Lymphocytes (%) (Auto) 10.2 Low 17.0-56.0 Monocytes # (Auto) 0.73 0.0-0.8 Monocytes (%) (Auto) 11.3 High 0.0-10.0 Neutrophils # (Auto) 4.81 1.8-7.0 Neutrophils (%) (Auto) 74.5 High 33.0-73.0 Red Cell Distribution Width 60.9 High 36-51 Laboratory test 01/05/2016 [facility] Lactic Acid 1.2 mmol/L 0.4-1.9 finding [address] [place] [address] [phone] Laboratory test 01/05/2016 N2N/CCD Import Lactic Acid 1.2 0.4-1.9 finding Level Laboratory test 01/05/2016 [facility] Phenytoin See Note 34 finding [address] [facility] (Dilantin) [place] [address] [phone] Comprehensive 01/04/2016 [facility] Glucose 114 mg/dL High 74-106 Metabolic Panel [address] [place] [address] [phone] BUN 27 mg/dL High 7-18 Creatinine 0.8 mg/dL 0.6-1.3 Glom Filtration Rate, Estimate >60 mL/min >60 If >60 mL/min >60 35 BUN/Creat 33.7 ratio Sodium 140 mmol/L 136-145 Potassium 4.2 mmol/L 3.5-5.1 Chloride 109 mmol/L High 98-107 Carbon Dioxide 21 mmol/L 21-32 Anion Gap 10 mEq/L 8-16 Calcium 8.8 mg/dL 8.5-10.1 Total Protein 7.1 g/dL 6.4-8.2 Albumin 3.2 g/dL Low 3.4-5.0 Globulin 3.9 g/dL 1.9-4.3 Alb/Glob 0.8 ratio Bilirubin,Total 0.2 mg/dL 0.2-1.0 Sgot/Ast 63 U/L High 15-37 SGPT/Alt 55 U/L 12-78 Alkaline Phosphatase 103 U/L 45-117 Laboratory test finding 01/04/2016 [facility] CK 112 U/L 39-[address] [place], [place] [address] [phone] NT-proBNP 666.0 pg/mL High <450 37 Troponin-I < 0.015 ng/mL 38 CBC W/Automated Diff 01/04/2016 [facility] White Blood 9.6 K/uL 3.4-10.[address] [place] [address] [phone] Red Blood Count 4.49 M/uL 4.20-5.80 Hemoglobin 11.5 gm/dL Low 12.8-17.0 Hematocrit 35.9 % Low 38.0-48.0 Mean Cell Volume 80.0 fl 80.0-96.0 Mean Corpuscular HGB 25.6 pg Low 27.0-33.0 Mean Corpuscular HGB Conc 32.0 g/dL 31.7-36.0 Platelet Count 204 K/uL 150-400 Red Cell Distri Width SD 63.1 fl High 36-51 Red Cell Distri Width %CV 22.6 % High 11.6-15.8 Mean Platelet Volume 11.4 fL High 6.6-10.6 Neut% 80.1 % High 33.0-73.0 Lymph % 8.1 % Low 17.0-56.0 Gosper % 8.8 % 0.0-10.0 Eo% 2.7 % 0.0-5.0 Bas% 0.3 % 0.1-1.0 Neut# 7.69 K/uL High 1.8-7.0 Lymph # 0.78 K/uL Low 1.8-7.0 Gosper # 0.85 K/uL High 0.0-0.8 Eos # 0.26 K/uL 0.0-0.5 Baso # 0.03 K/uL Low 0.1-0.2 Laboratory test finding 01/04/2016 [facility] Slide Review See Note [address] [place] [address] [phone] Path Review: See Note 40 Laboratory test 01/04/2016 N2N/CCD Import Manual Slide Review See Note 41 finding (Hematology) Pathologist Review (Hematology) Indicated,Slide Sent Pro-B-Type Natriuretic Peptide 666.0 High <450 Total Creatine Kinase 112 39-308 Laboratory test 01/04/2016 [facility] Legionella Negative Negative [address] Antigen,[place] [address] [phone] Streptococcus 01/04/2016 [facility] Specimen Source Urine . Pneumoniae Ag,Ur [address] [place] [address] [phone] Streptococcus Pneumoniae Ag,Ur NEGATIVE Negative Body Fluid Culture, Sterile Not Indicated . Organism Id Not indicated. . Please Note: See Note 43 Laboratory test finding 01/04/2016 N2N/CCD Import Aerobic Blood No Growth Culture Anaerobic Blood Culture No Growth Laboratory test 01/04/2016 [facility] Troponin-I < 0.015 [address] ng/[place] [address] [phone] Blood Culture 01/04/2016 [facility] Blood Culture See Note [address] [place] [address] [phone] Blood Culture Anaerobic See Note 46 Laboratory test 09/23/2015 N2N/CCD Import Alanine Aminotransferase 46 12 -78 finding (Alt/SGPT) Albumin 3.4 3.4-5.0 Albumin/Globulin Ratio 0.9 Alkaline Phosphatase 117 45-117 Anion Gap 6 Low 8-16 Aspartate Amino Transf (Ast/Sgot) 31 15-37 BUN/Creatinine Ratio 27.1 Basophils # (Auto) 0.02 Low 0.1-0.2 Basophils (%) (Auto) 0.3 0.1-1.0 Blood Urea Nitrogen 19 High 7-18 Calcium Level 7.9 Low 8.5-10.1 Carbon Dioxide Level 25 21-32 Chloride Level 110 High 98-107 Creatinine 0.7 0.6-1.3 Eosinophils # (Auto) 0.21 0.0-0.5 Eosinophils (%) (Auto) 3.2 0.0-5.0 Globulin 3.8 1.9-4.3 Glucose Screen 132 High 74-106 Hematocrit 34.1 Low 38.0-48.0 Hemoglobin 10.7 Low 12.8-17.0 Lymphocytes # (Auto) 1.23 Low 1.8-7.0 Lymphocytes (%) (Auto) 18.9 17.0-56.0 Mean Corpuscular Hemoglobin 23.8 Low 27.0-33.0 Mean Corpuscular Hemoglobin Concent 31.4 Low 31.7-36.0 Mean Corpuscular Volume 75.8 Low 80.0-96.0 Mean Platelet Volume 10.4 6.6-10.6 Monocytes # (Auto) 0.65 0.0-0.8 Monocytes (%) (Auto) 10.0 0.0-10.0 Neutrophils # (Auto) 4.40 1.8-7.0 Neutrophils (%) (Auto) 67.6 33.0-73.0 Platelet Count 250 150-400 Potassium Level 4.2 3.5-5.1 RDW Coefficient of Variation 18.3 High 11.6-15.8 Red Blood Count 4.50 4.20-5.80 Red Cell Distribution Width 48.4 36-51 Sodium Level 141 136-145 Total Bilirubin 0.2 0.2-1.0 Total Protein 7.2 6.4-8.2 White Blood Count 6.5 3.4-10.5 1 HCAP, SEPTIC SHOCK 2 Note: Persistent reduction for 3 months or more in an eGFR <60 mL/min/1.73 m2 defines CKD. Patients with eGFR values >/=60 mL/min/1.73 m2 may also have CKD if evidence of persistent proteinuria is present. The original MDRD equation for estimated GFR is not valid for patients less than 18 years of age. Additional information may be found at [email or web address]. 3 Note: Persistent reduction for 3 months or more in an eGFR <60 mL/min/1.73 m2 defines CKD. Patients with eGFR values >/=60 mL/min/1.73 m2 may also have CKD if evidence of persistent proteinuria is present. The original MDRD equation for estimated GFR is not valid for patients less than 18 years of age. Additional information may be found at [email or web address]. 4 THERAPEUTIC INR RANGE: 2.0 - 3.0 DVT, Pulmonary embolus, prophylaxis against venous thrombosis or systemic embolization in high risk patients. 2.5 - 3.5 Mechanical heart valves 5 Is patient on heparin protocol? N Is patient on anticoagulants? None 6 Note: Persistent reduction for 3 months or more in an eGFR <60 mL/min/1.73 m2 defines CKD. Patients with eGFR values >/=60 mL/min/1.73 m2 may also have CKD if evidence of persistent proteinuria is present. The original MDRD equation for estimated GFR is not valid for patients less than 18 years of age. Additional information may be found at [email or web address]. 7 Note: Persistent reduction for 3 months or more in an eGFR <60 mL/min/1.73 m2 defines CKD. Patients with eGFR values >/=60 mL/min/1.73 m2 may also have CKD if evidence of persistent proteinuria is present. The original MDRD equation for estimated GFR is not valid for patients less than 18 years of age. Additional information may be found at [email or web address]. 8 Unable to add tests NO BLUE TOP DRAWN CALLED TO FLOOR Tests: PTT INR PT Instructions: 9 Note: Persistent reduction for 3 months or more in an eGFR <60 mL/min/1.73 m2 defines CKD. Patients with eGFR values >/=60 mL/min/1.73 m2 may also have CKD if evidence of persistent proteinuria is present. The original MDRD equation for estimated GFR is not valid for patients less than 18 years of age. Additional information may be found at [email or web address]. 10 Note: Persistent reduction for 3 months or more in an eGFR <60 mL/min/1.73 m2 defines CKD. Patients with eGFR values >/=60 mL/min/1.73 m2 may also have CKD if evidence of persistent proteinuria is present. The original MDRD equation for estimated GFR is not valid for patients less than 18 years of age. Additional information may be found at [email or web address]. 11 Note: Persistent reduction for 3 months or more in an eGFR <60 mL/min/1.73 m2 defines CKD. Patients with eGFR values >/=60 mL/min/1.73 m2 may also have CKD if evidence of persistent proteinuria is present. The original MDRD equation for estimated GFR is not valid for patients less than 18 years of age. Additional information may be found at [email or web address]. 12 Note: Persistent reduction for 3 months or more in an eGFR <60 mL/min/1.73 m2 defines CKD. Patients with eGFR values >/=60 mL/min/1.73 m2 may also have CKD if evidence of persistent proteinuria is present. The original MDRD equation for estimated GFR is not valid for patients less than 18 years of age. Additional information may be found at [email or web address]. 13 NO GROWTH: FINAL REPORT 14 NO GROWTH: FINAL REPORT 15 THERAPEUTIC INR RANGE: 2.0 - 3.0 DVT, Pulmonary embolus, prophylaxis against venous thrombosis or systemic embolization in high risk patients. 2.5 - 3.5 Mechanical heart valves 16 NO GROWTH: FINAL REPORT 17 NO GROWTH: FINAL REPORT 18 Elevated levels of HbA1c suggest the need for more aggressive treatment of glycemia. The [place] [employer] recommends that a primary goal of therapy should be a HbA1c of <7% and that physicians should re-evaluate the treatment regimen in patients with HbA1c values consistently >8%. 19 Note: Persistent reduction for 3 months or more in an eGFR <60 mL/min/1.73 m2 defines CKD. Patients with eGFR values >/=60 mL/min/1.73 m2 may also have CKD if evidence of persistent proteinuria is present. The original MDRD equation for estimated GFR is not valid for patients less than 18 years of age. Additional information may be found at [email or web address]. 20 [employer] guidelines require a culture to be performed on CSF specimens negative by bacterial antigen testing (Cap [id number]). Performed at: [address] [id number] [employer]: Jatin Osborn MD, Phone: [phone] 21 GRAM NEGATIVE BACILLUS SEEN ON GRAM STAIN. CALLED Arnaldo SAVAGE AT [phone] 01/01/17 by [facility].BB ESCHERICHIA COLI 22 NO GROWTH: FINAL REPORT 23 NO GROWTH: FINAL REPORT 24 NO GROWTH: FINAL REPORT 25 Note: Persistent reduction for 3 months or more in an eGFR <60 mL/min/1.73 m2 defines CKD. Patients with eGFR values >/=60 mL/min/1.73 m2 may also have CKD if evidence of persistent proteinuria is present. The original MDRD equation for estimated GFR is not valid for patients less than 18 years of age. Additional information may be found at [email or web address]. 26 CALLED LAC TO TEO Horn RN AT [phone] 12/31/16 by [facility].KLS 27 Presumptive negative for L. pneumophila serogroup 1 antigen in urine, suggesting no recent or current infection. Legionnaires' disease cannot be ruled out since other serogroups and species may also cause disease. Performed at: [facility] [id number] [employer]ulator: Jatin Osborn MD, Phone: [phone] 28 [employer] guidelines require a culture to be performed on CSF specimens negative by bacterial antigen testing (CAP [id number]). Performed at: [facility] [id number] [employer]ulator: Jatin Osborn MD, Phone: [phone] 29 QUERY: Is Patient Fasting? Y 30 Note: Persistent reduction for 3 months or more in an eGFR <60 mL/min/1.73 m2 defines CKD. Patients with eGFR values >/=60 mL/min/1.73 m2 may also have CKD if evidence of persistent proteinuria is present. The original MDRD equation for estimated GFR is not valid for patients less than 18 years of age. Additional information may be found at [email or web address]. 31 Note: Persistent reduction for 3 months or more in an eGFR <60 mL/min/1.73 m2 defines CKD. Patients with eGFR values >/=60 mL/min/1.73 m2 may also have CKD if evidence of persistent proteinuria is present. The original MDRD equation for estimated GFR is not valid for patients less than 18 years of age. Additional information may be found at [email or web address]. 32 Note: Persistent reduction for 3 months or more in an eGFR <60 mL/min/1.73 m2 defines CKD. Patients with eGFR values >/=60 mL/min/1.73 m2 may also have CKD if evidence of persistent proteinuria is present. The original MDRD equation for estimated GFR is not valid for patients less than 18 years of age. Additional information may be found at [email or web address]. 33 Elevated levels of HbA1c suggest the need for more aggressive treatment of glycemia. The [place] [employer] recommends that a primary goal of therapy should be a HbA1c of <7% and that physicians should re-evaluate the treatment regimen in patients with HbA1c values consistently >8%. 34 MERGE 35 Note: Persistent reduction for 3 months or more in an eGFR <60 mL/min/1.73 m2 defines CKD. Patients with eGFR values >/=60 mL/min/1.73 m2 may also have CKD if evidence of persistent proteinuria is present. The original MDRD equation for estimated GFR is not valid for patients less than 18 years of age. Additional information may be found at [email or web address]. 36 Specimen slightly Hemolyzed, interpret with caution 37 Specimen slightly Hemolyzed, interpret with caution 38 0.0 - 0.045 ng/mL: Normal 0.046 - 0.5 ng/mL: Suggestive 0.6 - 1.5 ng/mL: Consistent 39 Instrument flagged sample for slide review. Less than 10% Bands seen, no other immature WBC's seen. RBC morphology essentially normal. Platelet estimate=NORMAL 40 INDICATED,SLIDE SENT Hematology Consultation Final Report Case# [id number] Peripheral Blood smear: Peripheral blood was review due to mild anemia. Examination of the peripheral blood confirms a hemogram findings. There is normocytic (low within range MCV) anemia. No nucleated red blood cells are seen. The white blood cells show toxic granualtion. There is slightly increased proportion of neutrophils and decreased lymphocyts. No blasts are seen. Clinical correlation is advised ANGEL GARG MD Reported 01/06/16 at 1642, Report electronically signed 41 Instrument flagged sample for slide review. Less than 10% Bands seen, no other immature WBC's seen. RBC morphology essentially normal. Platelet estimate= Normal 42 Performed at: - [facility] [id number] [employer]: Jatin Osborn MD, Phone: [phone] 43 [employer] guidelines require a culture to be performed on CSF specimens negative by bacterial antigen testing (CAP [id number]). Performed at: - [facility] [id number] [employer]ulator: Jatin Osborn MD, Phone: [phone] 44 0.0 - 0.045 ng/mL: Normal 0.046 - 0.5 ng/mL: Suggestive 0.6 - 1.5 ng/mL: Consistent 45 NO GROWTH: FINAL REPORT 46 NO GROWTH: FINAL REPORT Procedures Date Code Description Status 09/26/2018 59776 EKG-Tracing And Report Completed 01/02/2017 04859 Echocardiogram Complete Completed 03/17/2015 52682 EKG Interpretation And Report Only Completed 07/01/2013 03206 EKG Interpretation And Report Only Completed 01/28/2010 30775 EKG Interpretation And Report Only Completed 02/10/2009 75453 EKG Interpretation And Report Only Completed 10/01/2007 63010 EKG Interpretation And Report Only Completed 01/12/2000 97743 Remove Impacted Cerumen Completed 07/24/1998 79118 Tympanometry Completed 07/24/1998 86312 Remove Impacted Cerumen Completed 06/14/1997 33406 EKG Interpretation And Report Only Completed 06/03/1996 46242 EKG Interpretation And Report Only Completed 05/10/1996 63476 EKG Interpretation And Report Only Completed 04/21/1994 34765 Tympanometry Completed Encounters Type Date Location Provider Dx Diagnosis Office Visit 09/26/2018 Cardiology Office Barry Clifford I48.0 Paroxysmal atrial 2:20p B., PA fibrillation I10 Essential (primary) hypertension E78.5 Hyperlipidemia, unspecified R94.31 Abnormal electrocardiogram [ECG] [EKG] Office Visit 09/20/2018 Surgical Katharine Barba81.9 Cholecystitis, 11:00a Office Jakob Ocampo, unspecified M.D. Office Visit 03/01/2017 Surgical Katharine Barba81.9 Cholecystitis, 2:00p Office Jakob Ocampo, unspecified M.D. F03.90 Unspecified dementia without behavioral disturbance Office Visit 02/09/2017 Surgical Katharine Barba81.9 Cholecystitis, 9:00a Office Jakob Ocampo, unspecified M.D. F03.90 Unspecified dementia without behavioral disturbance Office Visit 01/19/2017 Surgical Office Katharine Barba81.9 Cholecystitis, 11:30a Christopher H., unspecified M.D. Office Visit 01/03/2017 Surgical Office Katharine Barba81.9 Cholecystitis, 10:27a Christopher H., unspecified M.D. Office Visit 01/03/2017 Physical Florecita Duenas, R78.81 Bacteremia 3:36p Medicine & M.D. 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 at [id number] - Barry Clifford, PAI48.0 Paroxysmal atrial fibrillationNew Medication: Metoprolol Tartrate 25 mg - Take 2 Tablets By Mouth Twice DailyComments:Given documented bradycardia at times by staff and relatively low BP, will decrease metoprolol to 50mg BID. He will continue OAC. No further testing as he is compensated and without exertional symptoms. Thyroid function is followed by [facility].I10 Essential (primary) hypertensionComments:Monitor with reduction in BB as above.E78.5 Hyperlipidemia, unspecifiedComments:Followed by PCP.R94.31 Abnormal electrocardiogram [ECG] [EKG]Comments:Avoid QT prolonging antibiotics. Will monitor with serial ECGs.AllFollow up:6-8 weeks
--- OUTSIDE RECORDS SUMMARY | 2018-10-03 10:08 | XMS REPORT | Continuity of Care Document ---
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 Onset: 09/26/2018 Family History Date Family Member(s) Observation Comments First Brother Alcoholism First Brother Fibromyalgia Social History Type Date Description Comments Sex Unknown Education Highest level completed, elementary school Marital Status Single Lives With Assisted Living [facility] Home Environment Lives In Adult Home Diet Patient is on a puree diet Occupation Disabled Occupation [employer] Work Status Retired Tobacco Use Start: [...] perc Christopher H., 9 Pouch/Durahesive/22 cholecystostomy drain M.D. mm opening Pouch Misc Divalproex Sodium 1 [...] 3mg Caps times a day 0 DR Andrea Ranitidine 150 1 tab by mouth daily [...] Unknown - every 8 hours as 02/09/[phone] needed Suspension Loperamide HCL 1 by mouth [...] CPT Code Status Date Vaccine Lot # 65240 Given 03/21/2000 flu vaccination 77744 Given 03/10/1999 Influenza Virus Vaccine 54221 Given 03/10/1999 Influenza Virus Whole 11566 Given 03/18/1998 Influenza Virus Vaccine 00191 Given 04/24/1997 Influenza Virus Vaccine 99137 Given 05/23/1996 Influenza Virus Vaccine 07407 Given 07/13/1995 Tetnus Injection 67659 Given 07/13/1995 DT Vaccine Younger Than 7 Yrs 18269 Given 04/21/1994 Influenza Virus Vaccine Vital Signs Date Vital Result Comment 09/26/2018 3:15pm BP Systolic Sitting Right Arm 129 mmHg BP Diastolic Sitting Right Arm 56 mmHg Heart Rate 68 /min Respiratory Rate 16 /min Height 67 inches 5'7" Weight 135.00 lb BMI (Body Mass Index) 21.1 kg/m2 BSA (Body Surface Area) 1.71 m2 [place] body weight in kilograms 67 kg O2 % BldC Oximetry 95 % ra 09/20/2018 11:09am BP Systolic 105 mmHg BP Diastolic 58 mmHg Heart Rate 58 /min Height 67 inches 5'7" Weight 141.00 lb BMI (Body Mass Index) 22.1 kg/m2 BSA (Body Surface Area) 1.74 m2 [place] body weight in kilograms 67 kg O2 % BldC Oximetry 99 % 01/19/2017 11:48am BP Systolic 142 mmHg BP Diastolic 80 mmHg Height 67 inches 5'7" Weight 165.00 lb BMI (Body Mass Index) 25.8 kg/m2 BSA (Body Surface Area) 1.86 m2 [place] body weight in kilograms 67 kg 05/03/2016 [...] kg/m2 BSA (Body Surface Area) 1.89 m2 [place] body weight in kilograms 67 kg O2 % BldC Oximetry 95 % Results Test Date Facility Test Result H/L Range Note Xray 02/15/2017 [facility] - Radiology Gallbladder gbef 78%; wnl [address] ([place]) W/[place] [address] [phone] CBC 01/05/2017 [facility] White Blood Count 5.9 K/uL N 3.4-10.5 1 [address] [place] [address] [phone] Red Blood Count 4.00 M/uL Low 4.20-5.80 [...] fL N 6.6-10.6 Basic Metabolic Panel 01/05/2017 [facility] Glucose 130 mg/dL High 74-106 [address] [place] [address] [phone] BUN 9 mg/dL N 7-18 Creatinine 0.4 [...] 36.1 Low 38.0 -48.0 Basic Metabolic 01/05/2017 [facility] Glucose 131 High 74-[address] mg/[place] [address] [phone] BUN 11 mg/dL N 7-18 Creatinine 0.5 mg/dL Low 0.6-1.3 Glom Filtration Rate, Estimate >60 mL/min >60 If >60 mL/min >60 3 BUN/Creat 22.0 ratio Sodium 144 mmol/L N 136-145 Potassium 3.4 mmol/L Low 3.5-5.1 Chloride 113 mmol/L High 98-107 Carbon Dioxide 23 mmol/L N 21-32 Anion Gap 8 mEq/L N 8-16 Calcium 8.6 mg/dL N 8.5-10.1 Laboratory test 01/05/2017 [facility] C-Reactive 19.5 mg/L High <3.[address] Protein,[place] [address] [phone] Anion Gap 01/05/2017 N2N/CCD Import Anion Gap [...] 8.6 8.5-10. SerPl-mCnc SerPl-mCnc 1 Protime 01/04/2017 [facility] Protime 22.2 High 12.0-[address] seconds .4 [place] [address] [phone] Inr 2.0 High 0.9-1.1 4 Laboratory test 01/04/2017 [facility] Act Partial 45.9 High 23.4-35.0 [address] [place] [address] [phone] Serum or plasma 01/04/2017 N2N/CCD Import Serum [...] Import Albumin 2.5 Low 3.4-5.0 SerPl-mCnc SerPl-mCnc Prothrombin time 01/04/2017 N2N/CCD Import Prothrombin time 22.2 High 12.0-14.4 (PT) in platelet (PT) in platelet poor plasma by c poor plasma by coagulation assay Aot Request 01/04/2017 [facility] Aot Request Unable [address] [place] [address] te <SEE [phone] NOTE> Tests to be added: PTT INR PT * Miscellaneous 01/04/2017 N2N/CCD Import * Miscellaneous Unable to studies (set) studies (set) add tests CBC 01/04/2017 [facility] White Blood Count 4.7 K/uL N 3.4-[address] .5 [place] [address] [phone] Red Blood Count 3.95 M/uL Low 4.20-5.80 Hemoglobin 12.5 gm/dL Low 12.8-17.0 Hematocrit 36.0 % Low 38.0-48.0 Mean Cell Volume 91.1 fl N 80.0-96.0 Mean Corpuscular HGB 31.6 pg N 27.0-33.0 Mean Corpuscular HGB Conc 34.7 g/dL N 31.7-36.0 Platelet Count 178 K/uL N 150-400 Red Cell Distri Width %CV 13.9 % N 11.6-15.8 Mean Platelet Volume 11.0 fL High 6.6-10.6 Alt SerPl-cCnc 01/04/2017 N2N/CCD Import Alt SerPl-cCnc 74 12-78 Alp SerPl-cCnc 01/04/2017 N2N/CCD Import [facility] 167 High 45-117 Laboratory test 01/04/2017 [facility] Magnesium 1.6 mg/dL Low 1.8-2.4 finding [address] [place], [place] [id number] [phone] C-Reactive Protein,Quant 28.2 mg/L High <3.0 Basic Metabolic Panel 01/04/2017 [facility] Glucose 108 mg/dL High 74-106 [address] [place], [place] [address] [phone] BUN 7 mg/dL N 7-18 Creatinine 0.5 mg/dL Low 0.6-1.3 Glom Filtration Rate, Estimate >60 mL/min >60 If >60 mL/min >60 7 BUN/Creat 14.0 ratio Sodium 147 mmol/L High 136-145 Potassium 3.6 mmol/L N 3.5-5.1 Chloride 115 mmol/L High 98-107 Carbon Dioxide 24 mmol/L N 21-32 Anion Gap 8 mEq/L N 8-16 Calcium 8.6 mg/dL N 8.5-10.1 Comprehensive Metabolic 01/04/2017 [facility] Glucose 109 mg/dL High 74-106 Panel [address] [place], [place] [id number] [phone] BUN 7 mg/dL N 7-18 Creatinine 0.5 mg/dL Low 0.6-1.3 Glom Filtration Rate, Estimate >60 mL/min >60 If >60 mL/min >60 8 BUN/Creat 14.0 ratio Sodium 147 mmol/L High [...] 12-78 Alkaline Phosphatase 167 U/L High 45-117 CBC 01/03/2017 [facility] White Blood Count 4.8 K/uL N 3.4-10.5 [address] [place] [address] [phone] Red Blood Count 3.73 M/uL Low 4.20-5.80 Hemoglobin 11.9 gm/dL Low 12.8-17.0 Hematocrit 34.4 % Low 38.0-48.0 Mean Cell Volume 92.2 fl N 80.0-96.0 Mean Corpuscular HGB 31.9 pg N 27.0-33.0 Mean Corpuscular HGB Conc 34.6 g/dL N 31.7-36.0 Platelet Count 161 K/uL N 150-400 Red Cell Distri Width %CV 14.0 % N 11.6-15.8 Mean Platelet Volume 11.1 fL High 6.6-10.6 Basic Metabolic Panel 01/03/2017 [facility] Glucose 130 mg/dL High 74-106 [address] [place] [address] [phone] BUN 7 mg/dL N 7-18 Creatinine 0.5 mg/dL Low 0.6-1.3 Glom Filtration Rate, Estimate >60 mL/min >60 If >60 mL/min >60 9 BUN/Creat 14.0 ratio Sodium 145 mmol/L N 136-145 Potassium 3.6 mmol/L N 3.5-5.1 Chloride 115 mmol/L High 98-107 Carbon Dioxide 23 mmol/L N 21-32 Anion Gap 7 mEq/L Low 8-16 Calcium 8.6 mg/dL N 8.5-10.1 Comprehensive Metabolic 01/03/2017 [facility] Glucose 129 mg/dL High 74-106 Panel [address] [place] [address] [phone] BUN 7 mg/dL N 7-18 Creatinine 0.5 mg/dL Low 0.6-1.3 Glom Filtration Rate, Estimate >60 mL/min >60 If >60 mL/min >60 10 BUN/Creat 14.0 ratio Sodium 144 mmol/L N [...] 12-78 Alkaline Phosphatase 154 U/L High 45-117 Laboratory test 01/03/2017 [facility] Magnesium 1.6 mg/dL Low 1.8-2.4 finding [address] [place] [address] [phone] C-Reactive Protein,Quant 53.0 mg/L High <3.0 CBC 01/02/2017 [facility] White Blood Count 7.0 K/uL N 3.4-10.5 [address] [place] [address] [phone] Red Blood Count 3.81 M/uL Low 4.20-5.80 [...] 11.1 fL High 6.6-10.6 Comprehensive Metabolic 01/02/2017 [facility] Glucose 131 mg/dL High 74-106 Panel [address] [place] [address] [phone] BUN 12 mg/dL N 7-18 Creatinine 0.5 [...] 12-78 Alkaline Phosphatase 160 U/L High 45-117 Anaerobic blood 01/02/2017 N2N/CCD Import Anaerobic blood No Growth culture culture Bacteria Bld 01/02/2017 N2N/CCD Import Bacteria Bld No Growth Aerobe Cult Aerobe Cult Blood Culture 01/02/2017 [facility] Blood Culture NO GROWTH: [address] Aerobic FINAL <[place] [address] NOTE> [phone] Blood Culture Anaerobic NO GROWTH: FINAL <SEE NOTE> 13 Protime 01/02/2017 [facility] Protime 18.3 seconds High 12.0-14.4 [address] [place] [address] [phone] Inr 1.6 High 0.9-1.1 14 Basic Metabolic Panel 01/02/2017 [facility] Glucose 139 mg/dL High 74-106 [address] [place] [address] [phone] BUN 13 mg/dL N 7-18 Creatinine 0.5 mg/dL Low 0.6-1.3 Glom Filtration Rate, Estimate >60 mL/min >60 If >60 mL/min >60 15 BUN/Creat 26.0 ratio Sodium 144 mmol/L N 136-145 Potassium 3.9 mmol/L N 3.5-5.1 Chloride 113 mmol/L High 98-107 Carbon Dioxide 23 mmol/L N 21-32 Anion Gap 8 mEq/L N 8-16 Calcium 8.4 mg/dL Low 8.5-10.1 Blood Culture 01/02/2017 [facility] Blood Culture NO GROWTH: FINAL [address] Aerobic <SEE NOTE> [place] [address] [phone] Blood Culture Anaerobic NO GROWTH: FINAL <SEE NOTE> 17 Laboratory test 01/02/2017 [facility] Act Partial 45.2 High 23.4-35.[address] [place] [address] [phone] Lactic Acid 01/01/2017 [facility] Lactic Acid 1.8 mmol/L N 0.4-1.[address] [place] [address] [phone] Lab Reflex >2.0 for Sepsis? N RDW RBC Auto 01/01/2017 N2N/CCD Import RDW RBC Auto 46.3 36-51 Neutrophils/leuk NFr 01/01/2017 N2N/CCD Import Neutrophils/leuk 91.2 High 33.0-73.0 Bld Auto NFr Bld Auto Neutrophils # Bld 01/01/2017 N2N/CCD Import Neutrophils # Bld 10.83 High 1.8-7.0 Auto Auto Monocytes/leuk NFr 01/01/2017 N2N/CCD Import Monocytes/leuk NFr 5.7 0.0- 10.0 Bld Auto Bld Auto Lymphocytes/leuk NFr 01/01/2017 N2N/CCD Import Lymphocytes/leuk 2.9 Low 20.0-42.0 Bld Auto NFr Bld Auto Lymphocytes 01/01/2017 N2N/CCD Import Lymphocytes 0.34 Low 1.0-4.0 [#/volume] in Blood [#/volume] in Blood by Automated count by Automated count Eosinophil/leuk NFr 01/01/2017 N2N/CCD Import Eosinophil/leuk NFr 0.1 0.0-6.6 Bld Auto Bld Auto Hgb A1c MFr Bld 01/01/2017 N2N/CCD Import Hgb A1c MFr Bld 7.4 High 4.2- 6.3 Lactate 01/01/2017 N2N/CCD Import Lactate 1.8 0.4-1.9 [Moles/volume] in [Moles/volume] in Serum or Plasma Serum or Plasma Glycohemoglobin A1c 01/01/2017 [facility] Glycohemoglobin 7.4 % High 4.2-6.[address] (A1c) [place] [address] [phone] eAG 166 mg/dL Basophils/leuk NFr 01/01/2017 N2N/CCD Import Basophils/leuk NFr 0.1 0.0- 1.1 Bld Auto Bld Auto Comprehensive 01/01/2017 [facility] Glucose 128 High 74-106 Metabolic Panel [address] mg/[place] [address] [phone] BUN 24 mg/dL High 7-18 Creatinine 0.6 [...] 12-78 Alkaline Phosphatase 178 U/L High 45-117 Blood monocytes 01/01/2017 N2N/CCD Import Blood monocytes 0.68 0.0-0.8 automated count automated count (number/volume) (number/volume) Eosinophil # Bld 01/01/2017 N2N/CCD Import Eosinophil # Bld 0.01 0.0- 0.5 Auto Auto CBS W/Automated Diff 01/01/2017 [facility] White Blood Count 11.9 High 3.4- 10.[address] K/[place] [address] [phone] Red Blood Count 3.80 M/uL Low 4.20-5.80 [...] 33.0-73.0 Lymph % 2.9 % Low 20.0-42.0 [place] % 5.7 % N 0.0-10.0 Eo% 0.1 % N 0.0-6.6 Bas% 0.1 % N 0.0-1.1 Neut# 10.83 K/uL High 1.8-7.0 Lymph # 0.34 K/uL Low 1.0-4.0 [place] # 0.68 K/uL N 0.0-0.8 Eos # 0.01 K/uL N 0.0-0.5 Baso # 0.01 K/uL N 0.0-0.1 Blood glucose 01/01/2017 N2N/CCD Import Blood glucose 166 mean value mean value measurement measurement estimated fro estimated from glycated hemoglobin (mass/volume) Basophils 01/01/2017 N2N/CCD Import Basophils 0.01 0.0-0.1 [#/volume] in [#/volume] in Blood by Blood by Automated count Automated count Laboratory test 12/31/2016 [facility] Lactic Acid 3.2 mmol/L High 0.4-1.9 20 finding [address] [place] [address] [phone] Blood platelet 12/31/2016 N2N/CCD Import Blood platelet Normal adequacy adequacy detection by detection by light microsc light microscopy Lymphocytes/100 12/31/2016 N2N/CCD Import Lymphocytes/100 3 Low 20-42 leukocytes in leukocytes in Blood by Manual Blood by Manual coun count Monocytes/100 12/31/2016 N2N/CCD Import Monocytes/100 4 0-10 leukocytes in leukocytes in Blood by Manual Blood by Manual count count Neuts Band/leuk 12/31/2016 N2N/CCD Import Neuts Band/leuk 17 High 0-8 NFr Bld Manual NFr Bld Manual Neuts Seg/leuk 12/31/2016 N2N/CCD Import Neuts Seg/leuk 73 33-73 NFr Bld Manual NFr Bld Manual Urine total 12/31/2016 N2N/CCD Import Urine total Negative Negative bilirubin bilirubin detection by detection by automated test automated test strip Urobilinogen Ur 12/31/2016 N2N/CCD Import Urobilinogen Ur 1.0 0.2-1.0 Strip-aCnc Strip-aCnc pH Ur Strip.auto 12/31/2016 N2N/CCD Import pH Ur Strip.auto 5.5 Low 6.5- 7.5 Unloinc 12/31/2016 N2N/CCD Import Unloinc Diff Ordered Laboratory test 12/31/2016 [facility] Legionella Negative Negative 21 finding [address] [facility] Antigen,Urine [place], [place] [id number] [phone] Color Ur 12/31/2016 N2N/CCD Import Color Ur Yellow Yellow Ketones Ur 12/31/2016 N2N/CCD Import Ketones Ur Trace High Negative Strip.auto-mCnc Strip.auto-mCnc Streptococcus 12/31/2016 [facility] Specimen Source Urine . Pneumoniae Ag,Ur [address] [place], [place] [id number] [phone] Streptococcus Pneumoniae Ag,Ur NEGATIVE Negative Body Fluid Culture, Sterile Not Indicated . Organism Id Not indicated. . Please Note: (SEE NOTE) 22 Bacteria 12/31/2016 N2N/CCD Import Bacteria Not indicated. . identification by identification by sterile body fluid sterile body fluid cult culture Comprehensive 12/31/2016 [facility] Glucose 324 mg/dL High 74-10 Metabolic Panel [address] [facility] 6 [place], [place] [id number] [phone] BUN 24 mg/dL High 7-18 Creatinine 1.0 mg/dL N 0.6-1.3 Glom Filtration Rate, Estimate >60 mL/min >60 If >60 mL/min >60 23 BUN/Creat 24.0 ratio Sodium 142 mmol/L N [...] 12-78 Alkaline Phosphatase 233 U/L High 45-117 Specific gravity 12/31/2016 N2N/CCD Import Specific gravity 1.020 1.010- 1.030 of Urine by of Urine by Automated test Automated test strip strip Eosinophil % 12/31/2016 N2N/CCD Import Eosinophil % 1 0-5 Urine appearance 12/31/2016 N2N/CCD Import Urine appearance Clear Clear determination determination Metamyelocytes/10 12/31/2016 N2N/CCD Import Metamyelocytes/1 2 High -0 0 leukocytes in 00 leukocytes in Blood by Manual c Blood by Manual count Epithelial cells 12/31/2016 N2N/CCD Import Epithelial cells Very Few None Seen [Presence] in [Presence] in Urine sediment by Urine sediment L by Light microscopy Leukocyte 12/31/2016 N2N/CCD Import Leukocyte Trace High Negative esterase Ur Ql esterase Ur Ql Strip.auto Strip.auto Bacteria 12/31/2016 N2N/CCD Import Bacteria Not . identification identification Indicated detection in detection in isolate by cu isolate by culture RBC morphology 12/31/2016 N2N/CCD Import RBC morphology Normal Serum or plasma 12/31/2016 N2N/CCD Import Serum or plasma 8.3 Low 10.0- 20.0 phenytoin phenytoin measurement measurement (mass/volume (mass/volume) Total Cells 12/31/2016 N2N/CCD Import Total Cells 100 Counted Bld Counted Bld Specimen source 12/31/2016 N2N/CCD Import Specimen source Urine . identification of identification unspecified spec of unspecified specimen Mucus [Presence] 12/31/2016 N2N/CCD Import Mucus [Presence] Moderate None Seen in Urine sediment in Urine by Light micros sediment by Light microscopy Streptococcus 12/31/2016 N2N/CCD Import Streptococcus Negative Negative pneumoniae pneumoniae antigen detection antigen detection Urine hemoglobin 12/31/2016 N2N/CCD Import Urine hemoglobin Negative Negative detection by detection by automated test automated test strip strip Unloinc 12/31/2016 N2N/CCD Import Unloinc See Note 24 Nitrite Ur Ql 12/31/2016 N2N/CCD Import Nitrite Ur Ql Negative Negative Strip.auto Strip.auto Blood Culture 12/31/2016 [facility] Blood Culture GRAM [address] [place] [address] <SEE NOTE> [phone] Quantity FROM BROTH N Blood Culture Anaerobic NO GROWTH: FINAL <SEE NOTE> 26 Ast-GN67 12/31/2016 [facility] Trimethoprim/Sulfamethoxazole <=[address] [place], [place] [address] [phone] Ampicillin <=2 S Cefazolin <=4 S Ampicillin/Sulbactam <=2 S Ciprofloxacin >=4 R Piperacillin/Tazobactam <=4 S Ceftazidime <=1 S Ceftriaxone <=1 S Cefepime <=1 S Levofloxacin >=8 R Imipenem 0.5 S Gentamicin <=1 S Tobramycin <=1 S Prot Ur 12/31/2016 N2N/CCD Import Prot Ur Negative Negative Strip.auto-mCnc Strip.auto-mCnc Blood Culture 12/31/2016 [facility] Blood Culture NO GROWTH: [address] Aerobic FINAL <[place] [address] NOTE> [phone] Blood Culture Anaerobic NO GROWTH: FINAL <SEE NOTE> 28 Basic Metabolic 01/11/2016 [facility] Basic Metabolic <pending> [address] [place] [address] [phone] Glucose 135 mg/dL High 74-106 BUN 23 mg/dL High 7-18 Creatinine 0.6 mg/dL 0.6-1.3 Glom Filtration Rate, Estimate >60 mL/min >60 If >60 mL/min >60 30 BUN/Creat 38.3 ratio Sodium 145 mmol/L 136-145 Potassium 3.7 mmol/L 3.5-5.1 Chloride 113 mmol/L High 98-107 Carbon Dioxide 23 mmol/L 21-32 Anion Gap 9 mEq/L 8-16 Calcium 8.9 mg/dL 8.5-10.1 Laboratory test 01/11/2016 [facility] C-Reactive 16.6 High <3.[address] Protein,Quant mg/L [place], [place] [id number] [phone] CBC 01/11/2016 [facility] White Blood Count 7.3 K/uL 3.4-10.5 [address] [place] [address] [phone] Red Blood Count 4.69 M/uL 4.20-5.80 Hemoglobin 12.3 gm/dL Low 12.8-17.0 Hematocrit 37.6 % Low 38.0-48.0 Mean Cell Volume 80.2 fl 80.0-96.0 Mean Corpuscular HGB 26.2 pg Low 27.0-33.0 Mean Corpuscular HGB Conc 32.7 g/dL 31.7-36.0 Platelet Count 271 K/uL 150-400 Red Cell Distri Width %CV 22.2 % High 11.6-15.8 Mean Platelet Volume 10.4 fL 6.6-10.6 Laboratory test 01/11/2016 [facility] Path Review: <pending> finding [address] [place] [address] [phone] Laboratory test 01/06/2016 N2N/CCD Import Bedside 217 High 70-110 finding Glucose Laboratory test 01/06/2016 [facility] Vancomycin,Tro 8.0 ug/mL Low 15.0-2 finding [address] [facility] ugh 0.0 [place] [address] [phone] Basic Metabolic 01/06/2016 [facility] Glucose 148 mg/dL High 74-106 Panel [address] [place] [address] [phone] BUN 11 mg/dL 7-18 Creatinine 0.7 mg/dL 0.6-1.3 Glom Filtration Rate, Estimate >60 mL/min >60 If >60 mL/min >60 31 BUN/Creat 15.7 ratio Sodium 141 mmol/L 136-145 Potassium 3.8 mmol/L 3.5-5.1 Chloride 109 mmol/L High 98-107 Carbon Dioxide 24 mmol/L 21-32 Anion Gap 8 mEq/L 8-16 Calcium 8.7 mg/dL 8.5-10.1 Laboratory test finding 01/06/2016 [facility] Magnesium 1.9 mg/dL 1.8-2.4 [address] [place] [address] [phone] C-Reactive Protein,Quant 74.9 mg/L High <3.0 CBC 01/06/2016 [facility] White Blood Count 6.3 K/uL 3.4-10.5 [address] [place] [address] [phone] Red Blood Count 4.72 M/uL 4.20-5.80 Hemoglobin [...] Sodium Level 141 136-145 Comprehensive Metabolic 01/05/2016 [facility] Glucose 158 mg/dL High 74-106 Panel [address] [place] [address] [phone] BUN 17 mg/dL 7-18 Creatinine 0.5 mg/dL [...] Phosphatase 97 U/L 45-117 Laboratory test 01/05/2016 [facility] Phenytoin 5.1 ug/mL Low 10.0-20.[address] (Dilantin) [place] [address] [phone] CBC W/Automated 01/05/2016 [facility] White Blood 6.5 K/uL 3.4-10.[address] [place] [address] [phone] Red Blood Count 4.38 M/uL 4.20-5.80 Hemoglobin [...] 33.0-73.0 Lymph % 10.2 % Low 17.0-56.0 Mesa % 11.3 % High 0.0-10.0 Eo% 3.7 % 0.0-5.0 Bas% 0.3 % 0.1-1.0 Neut# 4.81 K/uL 1.8-7.0 Lymph # 0.66 K/uL Low 1.8-7.0 Mesa # 0.73 K/uL 0.0-0.8 Eos # 0.24 K/uL 0.0-0.5 Baso # 0.02 K/uL Low 0.1-0.2 Glycohemoglobin 01/05/2016 [facility] Glycohemoglobin 6.8 % High 4.2-6.[address] (A1c) [place] [address] [phone] eAG 148 mg/dL Laboratory test 01/05/2016 N2N/CCD [...] Width 60.9 High 36-51 Laboratory test 01/05/2016 [facility] Lactic Acid 1.2 mmol/L 0.4-1.[address] [place] [address] [phone] Laboratory test 01/05/2016 N2N/CCD Import Lactic Acid 1.2 0.4-1.9 finding Level Laboratory test 01/05/2016 [facility] Phenytoin See Note [address] (Dilantin) [place] [address] [phone] Laboratory test 01/04/2016 [facility] Troponin-I < 0.015 [address] ng/[place] [address] [phone] Laboratory test 01/04/2016 N2N/CCD Import Aerobic Blood No Growth finding Culture Anaerobic Blood Culture No Growth Streptococcus Pneumoniae 01/04/2016 [facility] Specimen Source Urine . Ag,Ur [address] [place] [address] [phone] Streptococcus Pneumoniae Ag,Ur NEGATIVE Negative Body Fluid Culture, Sterile Not Indicated . Organism Id Not indicated. . Please Note: See Note 36 Laboratory test 01/04/2016 [facility] Legionella Negative Negative [address] Antigen,[place] [address] [phone] Laboratory test 01/04/2016 N2N/CCD Import Manual Slide See Note 38 finding Review (Hematology) Pathologist Review (Hematology) Indicated,Slide Sent Pro-B-Type Natriuretic Peptide 666.0 High <450 Total Creatine Kinase 112 39-308 Comprehensive Metabolic 01/04/2016 [facility] Glucose 114 mg/dL High 74-106 Panel [address] [place] [address] [phone] BUN 27 mg/dL High 7-18 Creatinine 0.8 mg/dL 0.6-1.3 Glom Filtration Rate, Estimate >60 mL/min >60 If >60 mL/min >60 39 BUN/Creat 33.7 ratio Sodium 140 mmol/L 136-145 [...] 103 U/L 45-117 Laboratory test finding 01/04/2016 [facility] CK 112 U/L 39-308 40 [address] [place] [address] [phone] NT-proBNP 666.0 pg/mL High <450 41 Troponin-I < 0.015 ng/mL 42 CBC W/Automated Diff 01/04/2016 [facility] White Blood 9.6 K/uL 3.4-10.5 [address] [facility] [place] [address] [phone] Red Blood Count 4.49 M/uL 4.20-5.80 Hemoglobin [...] 33.0-73.0 Lymph % 8.1 % Low 17.0-56.0 [place] % 8.8 % 0.0-10.0 Eo% 2.7 % 0.0-5.0 Bas% 0.3 % 0.1-1.0 Neut# 7.69 K/uL High 1.8-7.0 Lymph # 0.78 K/uL Low 1.8-7.0 Mesa # 0.85 K/uL High 0.0-0.8 Eos # 0.26 K/uL 0.0-0.5 Baso # 0.03 K/uL Low 0.1-0.2 Laboratory test finding 01/04/2016 [facility] Slide Review See Note 43 [address] [place] [address] [phone] Path Review: See Note 44 Blood Culture 01/04/2016 [facility] Blood Culture Aerobic See Note 45 [address] [place] [address] [phone] Blood Culture Anaerobic See Note 46 Laboratory [...] N Is patient on anticoagulants? None 6 Unable to add tests NO BLUE TOP DRAWN CALLED TO FLOOR Tests: PTT INR PT Instructions: 7 Note: Persistent reduction for 3 months or more in an eGFR <60 mL/min/1.73 m2 defines CKD. Patients with eGFR values >/=60 mL/min/1.73 m2 may also have CKD if evidence of persistent proteinuria is present. The original MDRD equation for estimated GFR is not valid for patients less than 18 years of age. Additional information may be found at [email or web address]. 8 Note: Persistent reduction for 3 months or more in an eGFR <60 mL/min/1.73 m2 defines CKD. Patients with eGFR values >/=60 mL/min/1.73 m2 may also have CKD if evidence of persistent proteinuria is present. The original MDRD equation for estimated GFR is not valid for patients less than 18 years of age. Additional information may be found at [email or web address]. 9 Note: Persistent reduction for 3 months [...] information may be found at [email or web address]. 12 NO GROWTH: FINAL REPORT 13 NO GROWTH: FINAL REPORT 14 THERAPEUTIC INR RANGE: 2.0 - 3.0 DVT, Pulmonary embolus, prophylaxis against venous thrombosis or systemic embolization in high risk patients. 2.5 - 3.5 Mechanical heart valves 15 Note: Persistent reduction for 3 months or more in an eGFR <60 mL/min/1.73 m2 defines CKD. Patients with eGFR values >/=60 mL/min/1.73 m2 may also have CKD if evidence of persistent proteinuria is present. The original MDRD equation for estimated GFR is not valid for patients less than 18 years of age. Additional information may be found at [email or web address]. 16 NO GROWTH: FINAL REPORT 17 NO GROWTH: FINAL REPORT 18 Elevated levels of HbA1c suggest the need for more aggressive treatment of glycemia. The [place] [employer] recommends that a primary goal [...] information may be found at [email or web address]. 20 CALLED LAC TO TEO Horn RN AT [phone] 12/31/16 by FRANCIS 21 Presumptive negative for L. pneumophila serogroup 1 antigen in urine, suggesting no recent or current infection. Legionnaires' disease cannot be ruled out since other serogroups and species may also cause disease. Performed at: - [facility] [id number] Pressure Tester: Jatin Osborn MD, Phone: [phone] 22 [employer] [place] guidelines require a culture to be performed on CSF specimens negative by bacterial antigen testing (CAP [id number]). Performed at: [facility] [address] [id number] Pressure Tester: Jatin Osborn MD, Phone: [phone] 23 Note: Persistent reduction for 3 months or more in an eGFR <60 mL/min/1.73 m2 defines CKD. Patients with eGFR values >/=60 mL/min/1.73 m2 may also have CKD if evidence of persistent proteinuria is present. The original MDRD equation for estimated GFR is not valid for patients less than 18 years of age. Additional information may be found at [email or web address]. 24 [employer] guidelines require a culture to be performed on CSF specimens negative by bacterial antigen testing (Cap [id number]). Performed at: [address] [id number] Pressure Tester: Jatin Osborn MD, Phone: [phone] 25 GRAM NEGATIVE BACILLUS SEEN ON GRAM STAIN. CALLED Arnaldo SAVAGE AT [phone] 01/01/17 by [email or web address].BB ESCHERICHIA COLI 26 NO GROWTH: FINAL REPORT 27 NO GROWTH: FINAL REPORT 28 NO GROWTH: FINAL REPORT 29 QUERY: Is Patient Fasting? Y 30 [...] for more aggressive treatment of glycemia. The [place] [employer] recommends that a primary goal of therapy should be a HbA1c of <7% and that physicians should re-evaluate the treatment regimen in patients with HbA1c values consistently >8%. 34 MERGE 35 0.0 - 0.045 ng/mL: Normal 0.046 - 0.5 ng/mL: Suggestive 0.6 - 1.5 ng/mL: Consistent 36 [employer] guidelines require a culture to be performed on CSF specimens negative by bacterial antigen testing (CAP [id number]). Performed at: - [facility] [id number] Pressure Tester: Jatin Osborn MD, Phone: [phone] 37 Performed at: - [facility] [address] [place], [place] [id number] Pressure Tester: Jatin Osborn MD, Phone: [phone] 38 Instrument flagged sample for slide review. Less than 10% Bands seen, no other immature WBC's seen. RBC morphology essentially normal. Platelet estimate= Normal 39 Note: Persistent reduction for 3 months or more in an eGFR <60 mL/min/1.73 m2 defines CKD. Patients with eGFR values >/=60 mL/min/1.73 m2 may also have CKD if evidence of persistent proteinuria is present. The original MDRD equation for estimated GFR is not valid for patients less than 18 years of age. Additional information may be found at [email or web address]. 40 Specimen slightly Hemolyzed, interpret with caution 41 Specimen slightly Hemolyzed, interpret with caution 42 0.0 - 0.045 ng/mL: Normal 0.046 - 0.5 ng/mL: Suggestive 0.6 - 1.5 ng/mL: Consistent 43 Instrument flagged sample for slide review. Less than 10% Bands seen, no other immature WBC's seen. RBC morphology essentially normal. Platelet estimate=NORMAL 44 INDICATED,SLIDE SENT Hematology Consultation Final Report Case# [id number] Peripheral Blood smear: Peripheral blood was review [...] Reported 01/06/16 at 1642, Report electronically signed 45 NO GROWTH: FINAL REPORT 46 NO GROWTH: FINAL REPORT Procedures Date Code Description Status 09/26/2018 04529 EKG-Tracing And Report Completed 01/02/2017 46562 Echocardiogram Complete Completed 03/17/2015 16675 EKG Interpretation And Report Only Completed 07/01/2013 99333 EKG Interpretation And Report Only Completed 01/28/2010 90378 EKG Interpretation And Report Only Completed 02/10/2009 69296 EKG Interpretation And Report Only Completed 10/01/2007 96507 EKG Interpretation And Report Only Completed 01/12/2000 50668 Remove Impacted Cerumen Completed 07/24/1998 90298 Tympanometry Completed 07/24/1998 46044 Remove Impacted Cerumen Completed 06/14/1997 47134 EKG Interpretation And Report Only Completed 06/03/1996 54139 EKG Interpretation And Report Only Completed 05/10/1996 46073 EKG Interpretation And Report Only Completed 04/21/1994 45469 Tympanometry Completed Encounters Type Date Location Provider Dx Diagnosis Office Visit 09/26/2018 Cardiology Office Carol Cliffordwesley I48.0 Paroxysmal atrial 2:20p B., PA fibrillation I10 Essential (primary) hypertension E78.5 Hyperlipidemia, unspecified R94.31 Abnormal electrocardiogram [ECG] [EKG] Office Visit 09/20/2018 Surgical Katharine Barba81.9 Cholecystitis, 11:00a Office Christopher H., unspecified M.D. Office Visit 03/01/2017 Surgical Katharine Barba81.9 Cholecystitis, 2:00p Office Christopher H., unspecified M.D. F03.90 Unspecified dementia without behavioral disturbance Office Visit 02/09/2017 Surgical Katharine Barba81.9 Cholecystitis, 9:00a Office Christopher H., unspecified M.D. F03.90 Unspecified dementia without behavioral disturbance Office Visit 01/19/2017 Surgical Office Katharine Barba81.9 Cholecystitis, 11:30a Christopher H., unspecified M.D. Office Visit 01/03/2017 Surgical Office Katharine Barba81.9 Cholecystitis, 10:27a Christopher H., unspecified M.D. Office Visit 01/03/2017 Physical MezuFlorecita, R78.81 Bacteremia 3:36p Medicine & M.D. Infectious [...] Tobacco abuse counseling Office Visit 12/18/2013 8:52a Jaydon StantonsameerMoncho, 599.0 UTI [facility] Site Not Spec Office Visit 11/08/2013 12:33p Jaydon Moreau Juliasilvio, 599.0 UTI Urinary [facility] Site Not Spec Plan of Treatment Future Appointment(s):11/09/2018 11:00 am - Inder Ford M.D., [facility] at Cardiology [id number]/19/2018 9:00 am - Conchita Garcia M.D. at [id number] - Barry Clifford, PAI48.0 Paroxysmal atrial fibrillationNew Medication: Metoprolol Tartrate 25 mg - Take 2 Tablets By Mouth Twice DailyComments:Given documented bradycardia at times by staff and relatively low BP, will decrease metoprolol to 50mg BID. He will continue OAC. No further testing as he is compensated and without exertional symptoms. Thyroid function is followed by [facility].I10 Essential (primary) hypertensionComments:Monitor with reduction in BB as above.E78.5 Hyperlipidemia, unspecifiedComments:Followed by PCP.R94.31 Abnormal electrocardiogram [ECG] [EKG]Comments:Avoid QT prolonging antibiotics. Will monitor with serial ECGs.AllFollow up:6-8 weeks
--- OUTSIDE RECORDS SUMMARY | 2018-10-03 10:08 | XMS REPORT | Continuity of Care Document ---
:1940 External Reference #:[id number] Author Name Jakob Barba M.D. Address [address] [place] [address] Care Team Providers Name Role Phone Kayla Whitten MD Care Team Information Rn Burn Unavailable Kayla Whitten MD Primary Care Physician Unavailable Payers Date Identification Numbers Payment Provider Subscriber Policy Number: [id number] Medicare Jatin Cárdenas PayID: [id number] [address] [place] [address] Policy Number: [id number] Medicaid Jatin Cárdenas Group Name: 1 2 [address] PayID: [id number] [place] [address] Advance Directives Description No Information Available Problems Active Problems Provider Date Benign essential hypertension Aston Hanson MD Onset: 01/06/2016 Mixed hyperlipidemia Aston Hanson MD Onset: 01/06/2016 Family History Description No Information Available Social History Type Date Description Comments Sex Unknown Marital Status Single Home Environment Lives In Adult Home Occupation Disabled Occupation [employer] Tobacco Use Start: Unknown Light tobacco smoker (10 or fewer cigarettes/day) ETOH Use Denies alcohol use Tobacco Use Start: Unknown Patient is a current smoker, smokes every day Recreational Drug Use Denies Drug Use Exercise Type/Frequency Does not exercise Allergies, Adverse Reactions, Alerts Active Allergies Reaction Severity Comments Date Penicillin 01/13/2016 Aspirin 01/13/2016 Levofloxacin 01/13/2016 Simvastatin 01/13/2016 Simvastatin 01/19/2017 Levofloxacin 01/19/2017 Medications Active Medications SIG Qnty Indications Ordering Provider Date Active Life Convex Use use ad directed 1units K81.9 Freda, 1-pc Urostomy over the perc Jakob Ocampo 9 Pouch/Durahesive/22 cholecystostomy drain M.D. mm opening Pouch Misc Fiber-Lax 1 by mouth every day Unknown 625mg 0 Tablets Clopidogrel 1 by mouth every day Unknown Bisulfate 0 75mg Tablets Acetaminophen 2 by mouth every 4 Unknown 325mg hours as needed 0 Tablets Famotidine 1 tab by mouth every Unknown 40mg day 0 Tablets Triple Antibiotic as Directed Unknown 0 3.5-400-5000 Ointment Phenytoin Sodium 2 capsules Twice Unknown Extended Daily 0 100mg Capsules Lisinopril 1 by mouth every day Unknown 2.5mg 0 Tablets Debrox 1-5 drop in right ear Unknown 6.5% twice a day x 3- 4 0 Solution days Cranberry Juice as Directed Unknown Extract 0 1000mg Capsules Citalopram 1 by mouth every day Unknown Hydrobromide 0 10mg Tablets Glucophage 1 by mouth twice a Unknown 500mg day 0 Tablets Glimepiride 1 by mouth every day Unknown 4mg 0 Tablets Diabetic Tussin uad Unknown 0 100mg/5ML Liquid Vitamin D3 High 1 by mouth every day Unknown Potency 0 1000Unit Capsules Exelon apply 1 patch daily Unknown 9.5mg/24HR 0 Patches 24HR Plavix 1 by mouth every day Unknown 75mg Tablets 0 Atorvastatin 1 by mouth every day Unknown Calcium 0 20mg Tablets Tylenol 2 by mouth every 4 Unknown 325mg hours as needed 0 Tablets Loperamide HCL 1 by mouth after each Unknown 2mg unformed bm (max 8 0 Tablets times daily) Levothyroxine 1 by mouth every day Unknown Sodium 0 50mcg Tablets Multi-Day Vitamins 1 by mouth every day Unknown 0 Tablets History Medications Lorazepam take 1 tablet once. 1tabs F41.9 Aston Hanson MD 05/03/2016 - 1mg 01/19/2017 Tablets Vitamin D 1 po daily Unknown - 3000Units Unknown Ascorbic Acid 1 by mouth every day Unknown - 500mg 01/19/2017 Tablets Amaryl take one bid Unknown - 2mg Tablets Unknown Metformin HCL 1 by mouth twice a Unknown - 500mg day 01/19/2017 Tablets Fiber-Lax 1 by mouth prn Unknown - 500mg Unknown Tablets Antacid 10 milliliters every Unknown - 8 hours as needed 02/09/2017 [id number]/5ML Suspension Celexa one po @ hs Unknown - 10mg Tablets Unknown Dilantin 200 mg po bid Unknown - 100mg Unknown Capsules Ferrous Sulfate 1 by mouth every day Unknown - Unknown 325(65Fe) mg Tablets Cure-ALL as Directed Unknown - Cream 09/20/2018 Apriso 2 caps by mouth Unknown - 0.375gm Caps twice a day 09/20/2018 ER 24HR Immunizations CPT Code Status Date Vaccine Lot # [id number] Given 03/21/2000 flu vaccination 14065 Given 03/10/1999 Influenza Virus Vaccine 85588 Given 03/10/1999 Influenza Virus Whole 93209 Given 03/18/1998 Influenza Virus Vaccine 28301 Given 04/24/1997 Influenza Virus Vaccine 91585 Given 05/23/1996 Influenza Virus Vaccine 95516 Given 07/13/1995 Tetnus Injection 04593 Given 07/13/1995 DT Vaccine Younger Than 7 Yrs 91079 Given 04/21/1994 Influenza Virus Vaccine Vital Signs Date Vital Result Comment 09/20/2018 11:09am BP Systolic 105 mmHg BP Diastolic 58 mmHg Heart Rate 58 /min Height 67 inches 5'7" Weight 141.00 lb BMI (Body Mass Index) 22.1 kg/m2 BSA (Body Surface Area) 1.74 m2 [place] body weight in kilograms 67 kg O2 % BldC Oximetry 99 % 01/19/2017 11:48am BP Systolic 142 mmHg BP Diastolic 80 mmHg Height 67 inches 5'7" Weight 165.00 lb BMI (Body Mass Index) 25.8 kg/m2 BSA (Body Surface Area) 1.86 m2 [place] body weight in kilograms 67 kg 05/03/2016 [...] kg/m2 BSA (Body Surface Area) 1.89 m2 [place] body weight in kilograms 67 kg O2 % BldC Oximetry 95 % Results Test Date Facility Test Result H/L Range Note Xray 02/15/2017 [facility] - Radiology Gallbladder gbef 78%; [address] ([facility]) [place] [address] [phone] Basic Metabolic 01/05/2017 [facility] Glucose 130 mg/dL High 74-106 1 Panel [address] [place] [address] [phone] BUN 9 mg/dL N 7-18 Creatinine 0.4 [...] VFr Bld Auto 36.1 Low 38.0 -48.0 Glucose 01/05/2017 N2N/CCD Import Glucose 131 High 74-106 [Mass/volume] in [Mass/volume] in Serum or Plasma Serum or Plasma Basic Metabolic 01/05/2017 [facility] Glucose 131 High 74-[address] mg/[place] [address] [phone] BUN 11 mg/dL N 7-18 Creatinine 0.5 mg/dL Low 0.6-1.3 Glom Filtration Rate, Estimate >60 mL/min >60 If >60 mL/min >60 3 BUN/Creat 22.0 ratio Sodium 144 mmol/L N 136-145 Potassium 3.4 mmol/L Low 3.5-5.1 Chloride 113 mmol/L High 98-107 Carbon Dioxide 23 mmol/L N 21-32 Anion Gap 8 mEq/L N 8-16 Calcium 8.6 mg/dL N 8.5-10.1 CBC 01/05/2017 [facility] White Blood Count 5.9 K/uL N 3.4-10.[address] [place] [address] [phone] Red Blood Count 4.00 M/uL Low 4.20-5.80 Hemoglobin 12.6 gm/dL Low 12.8-17.0 Hematocrit 36.1 % Low 38.0-48.0 Mean Cell Volume 90.3 fl N 80.0-96.0 Mean Corpuscular HGB 31.5 pg N 27.0-33.0 Mean Corpuscular HGB Conc 34.9 g/dL N 31.7-36.0 Platelet Count 188 K/uL N 150-400 Red Cell Distri Width %CV 14.1 % N 11.6-15.8 Mean Platelet Volume 9.9 fL N 6.6-10.6 Laboratory test 01/05/2017 [facility] C-Reactive 19.5 High <3.[address] Protein,Quant mg/[place] [address] [phone] Anion Gap 01/05/2017 N2N/CCD Import Anion Gap 8 8-16 SerPl-sCnc SerPl-sCnc Automated 01/05/2017 N2N/CCD Import Automated 31.5 27.0-3 erythrocyte mean erythrocyte mean 3.0 corpuscular corpuscular hemoglobin hemoglobin (mass per erythrocyte) Automated 01/05/2017 N2N/CCD Import Automated 34.9 31.7-3 erythrocyte mean erythrocyte mean 6.0 corpuscular corpuscular hemoglobin hemoglobin concentration measurement (mass/volume) BUN SerPl-mCnc 01/05/2017 N2N/CCD Import BUN SerPl-mCnc 11 7-18 BUN/Creat SerPl 01/05/2017 N2N/CCD Import BUN/Creat SerPl 22.0 Blood erythrocytes 01/05/2017 N2N/CCD Import Blood erythrocytes 4.00 Low 4.20-5 automated count automated count .80 (number/volume) (number/volume) Blood hemoglobin 01/05/2017 N2N/CCD Import Blood hemoglobin 12.6 Low 12.8 -1 measurement measurement 7.0 (mass/volume) (mass/volume) Co2 SerPl-sCnc 01/05/2017 N2N/CCD Import Co2 SerPl-sCnc 23 21-32 Calcium SerPl-mCnc 01/05/2017 N2N/CCD Import Calcium SerPl-mCnc 8.6 8.5- 10 .1 Chloride SerPl-sCnc 01/05/2017 N2N/CCD Import Chloride SerPl-sCnc 113 High 98-107 Creat SerPl-mCnc 01/05/2017 N2N/CCD Import Creat SerPl-mCnc 0.5 Low 0.6- 1. 3 Serum or plasma 01/04/2017 N2N/CCD Import Serum or plasma 0.2 0.2-1. total bilirubin total bilirubin 0 measurement (mass/ measurement (mass/volume) Prot SerPl-mCnc 01/04/2017 N2N/CCD Import Prot SerPl-mCnc 5.8 Low 6.4-8. 2 Globulin Ser 01/04/2017 N2N/CCD Import Globulin Ser 3.3 1.9-4. Calc-mCnc Calc-mCnc 3 Aspartate 01/04/2017 N2N/CCD Import Aspartate 48 High 15-37 aminotransferase aminotransferase [Enzymatic [Enzymatic activity/vol activity/volume] in Serum or Plasma Albumin/Glob SerPl 01/04/2017 N2N/CCD Import Albumin/Glob SerPl 0.8 Albumin SerPl-mCnc 01/04/2017 N2N/CCD Import Albumin SerPl-mCnc 2.5 Low 3.4-5. 0 Alt SerPl-cCnc 01/04/2017 N2N/CCD Import Alt SerPl-cCnc 74 12-78 Alp SerPl-cCnc 01/04/2017 N2N/CCD Import Alp SerPl-cCnc 167 High 45-117 Laboratory test 01/04/2017 [facility] Magnesium 1.6 Low 1.8-2. finding [address] mg/dL 4 [place] [address] [phone] C-Reactive Protein,Quant 28.2 mg/L High <3.0 Comprehensive Metabolic 01/04/2017 [facility] Glucose 109 mg/dL High 74-[address] [place] [address] [phone] BUN 7 mg/dL N 7-18 Creatinine 0.5 mg/dL Low 0.6-1.3 Glom Filtration Rate, Estimate >60 mL/min >60 If >60 mL/min >60 4 BUN/Creat 14.0 ratio Sodium 147 mmol/L High [...] U/L High 45-117 Basic Metabolic Panel 01/04/2017 [facility] Glucose 108 mg/dL High 74-[address] [place] [address] [phone] BUN 7 mg/dL N 7-18 Creatinine 0.5 mg/dL Low 0.6-1.3 Glom Filtration Rate, Estimate >60 mL/min >60 If >60 mL/min >60 5 BUN/Creat 14.0 ratio Sodium 147 mmol/L High 136-145 Potassium 3.6 mmol/L N 3.5-5.1 Chloride 115 mmol/L High 98-107 Carbon Dioxide 24 mmol/L N 21-32 Anion Gap 8 mEq/L N 8-16 Calcium 8.6 mg/dL N 8.5-10.1 CBC 01/04/2017 [facility] White Blood Count 4.7 K/uL N 3.4-10.[address] [place] [address] [phone] Red Blood Count 3.95 M/uL Low 4.20-5.80 [...] (set) studies (set) tests Aot Request 01/04/2017 [facility] Aot Request Unable to add [address] te <SEE NOTE> [place] [id number] [phone] Tests to be added: PTT INR PT Prothrombin time 01/04/2017 N2N/CCD Import Prothrombin time 22.2 High 12.0-14.4 (PT) in platelet (PT) in platelet poor plasma by c poor plasma by coagulation assay Laboratory test 01/04/2017 [facility] Act Partial 45.9 seconds High 23.4-35.0 [address] [place] [address] [phone] Protime 01/04/2017 [facility] Protime 22.2 seconds High 12.0-14.4 [address] [place] [address] [phone] Inr 2.0 High 0.9-1.1 8 Laboratory test 01/03/2017 [facility] Magnesium 1.6 mg/dL Low 1.8-2.4 finding [address] [place] [address] [phone] C-Reactive Protein,Quant 53.0 mg/L High <3.0 Basic Metabolic Panel 01/03/2017 [facility] Glucose 130 mg/dL High 74-106 [address] [place] [address] [phone] BUN 7 mg/dL N 7-18 Creatinine 0.5 mg/dL Low 0.6-1.3 Glom Filtration Rate, Estimate >60 mL/min >60 If >60 mL/min >60 9 BUN/Creat 14.0 ratio Sodium 145 mmol/L N 136-145 Potassium 3.6 mmol/L N 3.5-5.1 Chloride 115 mmol/L High 98-107 Carbon Dioxide 23 mmol/L N 21-32 Anion Gap 7 mEq/L Low 8-16 Calcium 8.6 mg/dL N 8.5-10.1 CBC 01/03/2017 [facility] White Blood Count 4.8 K/uL N 3.4-10.5 [address] [place] [address] [phone] Red Blood Count 3.73 M/uL Low 4.20-5.80 Hemoglobin 11.9 gm/dL Low 12.8-17.0 Hematocrit 34.4 % Low 38.0-48.0 Mean Cell Volume 92.2 fl N 80.0-96.0 Mean Corpuscular HGB 31.9 pg N 27.0-33.0 Mean Corpuscular HGB Conc 34.6 g/dL N 31.7-36.0 Platelet Count 161 K/uL N 150-400 Red Cell Distri Width %CV 14.0 % N 11.6-15.8 Mean Platelet Volume 11.1 fL High 6.6-10.6 Comprehensive Metabolic 01/03/2017 [facility] Glucose 129 mg/dL High 74-106 Panel [address] [place] [address] [phone] BUN 7 mg/dL N 7-18 Creatinine 0.5 [...] 12-78 Alkaline Phosphatase 154 U/L High 45-117 Anaerobic blood 01/02/2017 N2N/CCD Import Anaerobic blood No Growth culture culture CBC 01/02/2017 [facility] White Blood Count 7.0 K/uL N 3.4-10.5 [address] [place] [address] [phone] Red Blood Count 3.81 M/uL Low 4.20-5.80 [...] 11.1 fL High 6.6-10.6 Comprehensive Metabolic 01/02/2017 [facility] Glucose 131 mg/dL High 74-106 Panel 134 [place] [address] [phone] BUN 12 mg/dL N 7-18 Creatinine 0.5 [...] U/L High 45-117 Basic Metabolic Panel 01/02/2017 [facility] Glucose 139 mg/dL High 74-[address] [place] [address] [phone] BUN 13 mg/dL N 7-18 Creatinine 0.5 mg/dL Low 0.6-1.3 Glom Filtration Rate, Estimate >60 mL/min >60 If >60 mL/min >60 12 BUN/Creat 26.0 ratio Sodium 144 mmol/L N 136-145 Potassium 3.9 mmol/L N 3.5-5.1 Chloride 113 mmol/L High 98-107 Carbon Dioxide 23 mmol/L N 21-32 Anion Gap 8 mEq/L N 8-16 Calcium 8.4 mg/dL Low 8.5-10.1 Blood Culture 01/02/2017 [facility] Blood Culture NO GROWTH: FINAL [address] Aerobic <SEE NOTE> [place] [address] [phone] Blood Culture Anaerobic NO GROWTH: FINAL <SEE NOTE> 14 Laboratory test 01/02/2017 [facility] Act Partial 45.2 High 23.4-35.[address] [place] [address] [phone] Protime 01/02/2017 [facility] Protime 18.3 High 12.0-14.[address] [place] [address] [phone] Inr 1.6 High 0.9-1.1 15 Blood Culture 01/02/2017 [facility] Blood Culture NO GROWTH: FINAL [address] Aerobic <SEE NOTE> [place] [id number] [phone] Blood Culture Anaerobic NO GROWTH: FINAL <SEE NOTE> 17 Bacteria Bld 01/02/2017 N2N/CCD Import Bacteria Bld No Growth Aerobe Cult Aerobe Cult RDW RBC Auto 01/01/2017 N2N/CCD Import RDW RBC Auto 46.3 36-51 Neutrophils/leuk 01/01/2017 N2N/CCD Import Neutrophils/leuk 91.2 High 33.0-7 NFr Bld Auto NFr Bld Auto 3.0 Neutrophils # Bld 01/01/2017 N2N/CCD Import Neutrophils # Bld 10.83 High 1.8-7. Auto Auto 0 Monocytes/leuk NFr 01/01/2017 N2N/CCD Import Monocytes/leuk NFr 5.7 0.0- 10 Bld Auto Bld Auto .0 Lymphocytes/leuk 01/01/2017 N2N/CCD Import Lymphocytes/leuk 2.9 Low 20.0- 4 NFr Bld Auto NFr Bld Auto 2.0 Lymphocytes 01/01/2017 N2N/CCD Import Lymphocytes 0.34 Low 1.0-4. [#/volume] in [#/volume] in 0 Blood by Automated Blood by Automated count count Hgb A1c MFr Bld 01/01/2017 N2N/CCD Import Hgb A1c MFr Bld 7.4 High 4.2- 6. 3 Lactic Acid 01/01/2017 [facility] Lactic Acid 1.8 mmol/L N 0.4-1. [address] [place] [address] [phone] Lab Reflex >2.0 for Sepsis? N Lactate 01/01/2017 N2N/CCD Import Lactate 1.8 0.4-1.9 [Moles/volume] in [Moles/volume] in Serum or Plasma Serum or Plasma CBS W/Automated 01/01/2017 [facility] White Blood Count 11.9 High 3.4-10.[address] [place] K/[place] [address] [phone] Red Blood Count 3.80 M/uL Low 4.20-5.80 [...] 33.0-73.0 Lymph % 2.9 % Low 20.0-42.0 Hart % 5.7 % N 0.0-10.0 Eo% 0.1 % N 0.0-6.6 Bas% 0.1 % N 0.0-1.1 Neut# 10.83 K/uL High 1.8-7.0 Lymph # 0.34 K/uL Low 1.0-4.0 Hart # 0.68 K/uL N 0.0-0.8 Eos # 0.01 K/uL N 0.0-0.5 Baso # 0.01 K/uL N 0.0-0.1 Glycohemoglobin 01/01/2017 [facility] Glycohemoglobin 7.4 % High 4.2-6.[address] (A1c) [place] [address] [phone] eAG 166 mg/dL Comprehensive Metabolic 01/01/2017 [facility] Glucose 128 mg/dL High 74-[address] [place] [address] [phone] BUN 24 mg/dL High 7-18 Creatinine 0.6 [...] Unloinc See Note 20 Blood Culture 12/31/2016 [facility] Blood Culture GRAM NEGATIVE [address] Aerobic BA <SEE NOTE> [place] [id number] [phone] Quantity FROM BROTH N Blood Culture Anaerobic NO GROWTH: FINAL <SEE NOTE> 22 Ast-GN67 12/31/2016 [facility] Trimethoprim/Sulfamethoxazole <=[address] [place] [address] [phone] Ampicillin <=2 S Cefazolin <=4 S Ampicillin/Sulbactam <=2 S Ciprofloxacin >=4 R Piperacillin/Tazobactam <=4 S Ceftazidime <=1 S Ceftriaxone <=1 S Cefepime <=1 S Levofloxacin >=8 R Imipenem 0.5 S Gentamicin <=1 S Tobramycin <=1 S Blood Culture 12/31/2016 [facility] Blood Culture NO GROWTH: FINAL [address] Aerobic <SEE NOTE> [place] [id number] [phone] Blood Culture Anaerobic NO GROWTH: FINAL <SEE NOTE> 24 Comprehensive Metabolic 12/31/2016 [facility] Glucose 324 mg/dL High 74-[address] [place] [id number] [phone] BUN 24 mg/dL High 7-18 Creatinine 1.0 [...] Unloinc 12/31/2016 N2N/CCD Import Unloinc Diff Ordered Epithelial cells 12/31/2016 N2N/CCD Import Epithelial cells Very Few None Seen [Presence] in [Presence] in Urine sediment by Urine sediment L by Light microscopy Color Ur 12/31/2016 N2N/CCD Import Color Ur Yellow Yellow Laboratory test 12/31/2016 [facility] Lactic Acid 3.2 mmol/L High 0.4-1.9 26 finding [address] [place] [address] [phone] Ketones Ur 12/31/2016 N2N/CCD Import Ketones Ur Trace High Negative Strip.auto-mCnc Strip.auto-mCnc Leukocyte 12/31/2016 N2N/CCD Import Leukocyte Trace High [...] 5.5 Low 6.5- 7.5 Laboratory test 12/31/2016 [facility] Legionella Negative Negative [address] Antigen,[place] [address] [phone] Streptococcus 12/31/2016 [facility] Specimen Source Urine . Pneumoniae Ag,Ur [address] [place] [address] [phone] Streptococcus Pneumoniae Ag,Ur NEGATIVE Negative Body Fluid [...] pneumoniae antigen detection detection Basic Metabolic 01/11/2016 [facility] Basic Metabolic <pending> [address] [place] [address] [phone] Glucose 135 mg/dL High 74-106 BUN 23 mg/dL High 7-18 Creatinine 0.6 mg/dL 0.6-1.3 Glom Filtration Rate, Estimate >60 mL/min >60 If >60 mL/min >60 30 BUN/Creat 38.3 ratio Sodium 145 mmol/L 136-145 Potassium 3.7 mmol/L 3.5-5.1 Chloride 113 mmol/L High 98-107 Carbon Dioxide 23 mmol/L 21-32 Anion Gap 9 mEq/L 8-16 Calcium 8.9 mg/dL 8.5-10.1 Laboratory test 01/11/2016 [facility] C-Reactive 16.6 High <3.0 finding [address] Protein,Quant mg/[place] [address] [phone] CBC 01/11/2016 [facility] White Blood Count 7.3 K/uL 3.4-10.5 [address] [place] [address] [phone] Red Blood Count 4.69 M/uL 4.20-5.80 Hemoglobin 12.3 gm/dL Low 12.8-17.0 Hematocrit 37.6 % Low 38.0-48.0 Mean Cell Volume 80.2 fl 80.0-96.0 Mean Corpuscular HGB 26.2 pg Low 27.0-33.0 Mean Corpuscular HGB Conc 32.7 g/dL 31.7-36.0 Platelet Count 271 K/uL 150-400 Red Cell Distri Width %CV 22.2 % High 11.6-15.8 Mean Platelet Volume 10.4 fL 6.6-10.6 Laboratory test 01/11/2016 [facility] Path Review: <pending> finding [address] [place] [address] [phone] Laboratory test 01/06/2016 N2N/CCD Import Bedside 217 High 70-110 finding Glucose Laboratory test 01/06/2016 [facility] Vancomycin,Tro 8.0 ug/mL Low 15.0-2 finding [address] [facility] ugh 0.0 [place] [address] [phone] Basic Metabolic 01/06/2016 [facility] Glucose 148 mg/dL High 74-106 Panel [address] [place] [address] [phone] BUN 11 mg/dL 7-18 Creatinine 0.7 mg/dL 0.6-1.3 Glom Filtration Rate, Estimate >60 mL/min >60 If >60 mL/min >60 31 BUN/Creat 15.7 ratio Sodium 141 mmol/L 136-145 Potassium 3.8 mmol/L 3.5-5.1 Chloride 109 mmol/L High 98-107 Carbon Dioxide 24 mmol/L 21-32 Anion Gap 8 mEq/L 8-16 Calcium 8.7 mg/dL 8.5-10.1 Laboratory test finding 01/06/2016 [facility] Magnesium 1.9 mg/dL 1.8-2.[address] [place] [address] [phone] C-Reactive Protein,Quant 74.9 mg/L High <3.0 CBC 01/06/2016 [facility] White Blood Count 6.3 K/uL 3.4-10.5 [address] [place] [address] [phone] Red Blood Count 4.72 M/uL 4.20-5.80 Hemoglobin [...] 22.2 High 11.6-15.8 Sodium Level 141 136-145 Laboratory test 01/05/2016 [facility] Phenytoin See Note [address] (Dilantin) [place] [address] [phone] Comprehensive 01/05/2016 [facility] Glucose 158 mg/dL High 74-10 Metabolic Panel [address] [place] [address] [phone] BUN 17 mg/dL 7-18 Creatinine 0.5 mg/dL Low 0.6-1.3 Glom Filtration Rate, Estimate >60 mL/min >60 If >60 mL/min >60 33 BUN/Creat 34.0 ratio Sodium 139 mmol/L 136-145 [...] Phosphatase 97 U/L 45-117 Laboratory test 01/05/2016 [facility] Phenytoin 5.1 ug/mL Low 10.0-20.[address] (Dilantin) [place] [address] [phone] CBC W/Automated 01/05/2016 [facility] White Blood 6.5 K/uL 3.4-10.[address] [place] [address] [phone] Red Blood Count 4.38 M/uL 4.20-5.80 Hemoglobin [...] 33.0-73.0 Lymph % 10.2 % Low 17.0-56.0 Hart % 11.3 % High 0.0-10.0 Eo% 3.7 % 0.0-5.0 Bas% 0.3 % 0.1-1.0 Neut# 4.81 K/uL 1.8-7.0 Lymph # 0.66 K/uL Low 1.8-7.0 Hart # 0.73 K/uL 0.0-0.8 Eos # 0.24 K/uL 0.0-0.5 Baso # 0.02 K/uL Low 0.1-0.2 Glycohemoglobin 01/05/2016 [facility] Glycohemoglobin 6.8 % High 4.2-6.3 34 A1c [address] (A1c) [place] [address] [phone] eAG 148 mg/dL Laboratory test 01/05/2016 N2N/CCD [...] Width 60.9 High 36-51 Laboratory test 01/05/2016 N2N/CCD Import Lactic Acid 1.2 0.4-1.9 finding Level Laboratory test 01/05/2016 [facility] Lactic Acid 1.2 mmol/L 0.4-1.9 finding [address] [place] [address] [phone] Blood Culture 01/04/2016 [facility] Blood Culture See Note 35 [address] [place] [address] [phone] Blood Culture Anaerobic See Note 36 Laboratory test 01/04/2016 [facility] Troponin-I < 0.015 ng/mL 37 finding [address] [place] [address] [phone] Laboratory test 01/04/2016 N2N/CCD Import Aerobic Blood No Growth finding Culture Anaerobic Blood Culture No Growth Laboratory test finding 01/04/2016 [facility] Slide Review See Note 38 [address] [place] [address] [phone] Path Review: See Note 39 CBC W/Automated Diff 01/04/2016 [facility] White Blood 9.6 K/uL 3.4-10.[address] [place] [address] [phone] Red Blood Count 4.49 M/uL 4.20-5.80 Hemoglobin [...] 33.0-73.0 Lymph % 8.1 % Low 17.0-56.0 Hart % 8.8 % 0.0-10.0 Eo% 2.7 % 0.0-5.0 Bas% 0.3 % 0.1-1.0 Neut# 7.69 K/uL High 1.8-7.0 Lymph # 0.78 K/uL Low 1.8-7.0 Hart # 0.85 K/uL High 0.0-0.8 Eos # 0.26 K/uL 0.0-0.5 Baso # 0.03 K/uL Low 0.1-0.2 Laboratory test finding 01/04/2016 [facility] CK 112 U/L 39-308 40 [address] [place] [address] [phone] NT-proBNP 666.0 pg/mL High <450 41 Troponin-I < 0.015 ng/mL 42 Comprehensive Metabolic 01/04/2016 [facility] Glucose 114 mg/dL High 74-106 Panel [address] [place] [address] [phone] BUN 27 mg/dL High 7-18 Creatinine 0.8 mg/dL 0.6-1.3 Glom Filtration Rate, Estimate >60 mL/min >60 If >60 mL/min >60 43 BUN/Creat 33.7 ratio Sodium 140 mmol/L 136-145 [...] Alkaline Phosphatase 103 U/L 45-117 Laboratory test 01/04/2016 N2N/[facility] Import Manual Slide Review See Note 44 finding (Hematology) Pathologist Review (Hematology) Indicated,Slide Sent Pro-B-Type Natriuretic Peptide 666.0 High <450 Total Creatine Kinase 112 39-308 Laboratory test 01/04/2016 [facility] Legionella Negative Negative [address] Antigen,Urine [place], [place] [id number] [phone] Streptococcus 01/04/2016 [facility] Specimen Source Urine . Pneumoniae Ag,Ur [address] [place], [place] [id number] [phone] Streptococcus Pneumoniae Ag,Ur NEGATIVE Negative Body Fluid Culture, Sterile Not Indicated . Organism Id Not indicated. . Please Note: See Note 46 Laboratory test 09/23/2015 N2N/CCD [...] information may be found at [email or web address]. 4 Note: Persistent reduction for 3 months or more in an eGFR <60 mL/min/1.73 m2 defines CKD. Patients with eGFR values >/=60 mL/min/1.73 m2 may also have CKD if evidence of persistent proteinuria is present. The original MDRD equation for estimated GFR is not valid for patients less than 18 years of age. Additional information may be found at [email or web address]. 5 Note: Persistent reduction for 3 months or more in an eGFR <60 mL/min/1.73 m2 defines CKD. Patients with eGFR values >/=60 mL/min/1.73 m2 may also have CKD if evidence of persistent proteinuria is present. The original MDRD equation for estimated GFR is not valid for patients less than 18 years of age. Additional information may be found at [email or web address]. 6 Unable to add tests NO BLUE TOP DRAWN CALLED TO FLOOR Tests: PTT INR PT Instructions: 7 Is patient on heparin protocol? N Is patient on anticoagulants? None 8 THERAPEUTIC INR RANGE: 2.0 - 3.0 DVT, Pulmonary embolus, prophylaxis against venous thrombosis or systemic embolization in high risk patients. 2.5 - 3.5 Mechanical heart valves 9 Note: Persistent reduction for 3 months [...] for more aggressive treatment of glycemia. The [place] [employer] recommends that a primary goal [...] be found at [email or web address]. 20 [employer] [place] [employer] guidelines require a culture to be performed on CSF specimens negative by bacterial antigen testing (Cap [id number]). Performed at: [address] [id number] Apprentice Cook: Jatin Osborn MD, Phone: [phone] 21 GRAM NEGATIVE BACILLUS SEEN ON GRAM STAIN. CALLED Arnaldo SAVAGE AT 3603 01/01/17 by [facility].BB ESCHERICHIA COLI 22 NO GROWTH: [...] CALLED LAC TO TEO Horn RN AT 2147 12/31/16 by FRANCIS 27 Presumptive negative for L. pneumophila serogroup 1 antigen in urine, suggesting no recent or current infection. Legionnaires' disease cannot be ruled out since other serogroups and species may also cause disease. Performed at: [address] [id number] Apprentice Cook: Jatin Osborn MD, Phone: [phone] 28 [employer] [place] [employer] guidelines require a culture to be performed on CSF specimens negative by bacterial antigen testing (CAP [id number]). Performed at: [address] [id number] Apprentice Cook: Jatin Osborn MD, Phone: [phone] 29 QUERY: Is Patient Fasting? Y 30 [...] information may be found at [email or web address]. 32 MERGE 33 Note: Persistent reduction for 3 months or more in an eGFR <60 mL/min/1.73 m2 defines CKD. Patients with eGFR values >/=60 mL/min/1.73 m2 may also have CKD if evidence of persistent proteinuria is present. The original MDRD equation for estimated GFR is not valid for patients less than 18 years of age. Additional information may be found at [email or web address]. 34 Elevated levels of HbA1c suggest the need for more aggressive treatment of glycemia. The [place] [employer] recommends that a primary goal of therapy should be a HbA1c of <7% and that physicians should re-evaluate the treatment regimen in patients with HbA1c values consistently >8%. 35 NO GROWTH: FINAL REPORT 36 NO GROWTH: FINAL REPORT 37 0.0 - 0.045 ng/mL: Normal 0.046 - 0.5 ng/mL: Suggestive 0.6 - 1.5 ng/mL: Consistent 38 Instrument flagged sample for slide review. Less than 10% Bands seen, no other immature WBC's seen. RBC morphology essentially normal. Platelet estimate=NORMAL 39 INDICATED,SLIDE SENT Hematology Consultation Final Report Case# [id number] Peripheral Blood smear: Peripheral blood was review [...] Reported 01/06/16 at 1642, Report electronically signed 40 Specimen slightly Hemolyzed, interpret with caution 41 Specimen slightly Hemolyzed, interpret with caution 42 0.0 - 0.045 ng/mL: Normal 0.046 - 0.5 ng/mL: Suggestive 0.6 - 1.5 ng/mL: Consistent 43 Note: Persistent reduction for 3 months or more in an eGFR <60 mL/min/1.73 m2 defines CKD. Patients with eGFR values >/=60 mL/min/1.73 m2 may also have CKD if evidence of persistent proteinuria is present. The original MDRD equation for estimated GFR is not valid for patients less than 18 years of age. Additional information may be found at [email or web address]. 44 Instrument flagged sample for slide review. Less than 10% Bands seen, no other immature WBC's seen. RBC morphology essentially normal. Platelet estimate= Normal 45 Performed at: [facility] [employer] [id number] Apprentice Cook: Jatin Osborn MD, Phone: [phone] 46 [employer] [place] [employer] guidelines require a culture to be performed on CSF specimens negative by bacterial antigen testing (CAP [id number]). Performed at: [facility] [employer] [id number] Apprentice Cook: Jatin Osborn MD, Phone: [phone] Procedures Date Code Description Status 01/02/2017 44284 Echocardiogram Complete Completed 03/17/2015 42484 EKG Interpretation And Report Only Completed 07/01/2013 22218 EKG Interpretation And Report Only Completed 01/28/2010 79054 EKG Interpretation And Report Only Completed 02/10/2009 83331 EKG Interpretation And Report Only Completed 10/01/2007 72198 EKG Interpretation And Report Only Completed 01/12/2000 50752 Remove Impacted Cerumen Completed 07/24/1998 98532 Tympanometry Completed 07/24/1998 41976 Remove Impacted Cerumen Completed 06/14/1997 31928 EKG Interpretation And Report Only Completed 06/03/1996 77728 EKG Interpretation And Report Only Completed 05/10/1996 78084 EKG Interpretation And Report Only Completed 04/21/1994 97262 Tympanometry Completed Encounters Type Date Location Provider Dx Diagnosis Office Visit 03/01/2017 Surgical Office Katharine [email or web address] Cholecystitis, 2:00p Christopher H., unspecified M.D. F03.90 Unspecified dementia [...] Moncho Torres, 599.0 UTI [facility] Site Not Spec Office Visit 11/08/2013 12:33p Kieran Acosta, 599.0 UTI Urinary [facility] Not Spec Plan of Treatment Future Appointment(s):10/19/2018 9:00 am - Conchita Garcia M.D. at [id number] - Jakob Barba M.D.K81.9 Cholecystitis, unspecifiedNew Medication:Active Life Convex 1-pc Urostomy Pouch/Durahesive/22mm Pouch - Use use ad directed over the perc cholecystostomy drain openingComments:Chronic drainage from a percutaneous cholecystostomy drain sites. The site was last managed with a drain in June.A tract has obviously developed and continues to drain. He doesn't appear to have fatty food intolerance pattern. This Indicates that he needs a wide range foods and there didn't appear to be any difficulties that he either expresses or that they noticed in his action and interaction. Examination he has no scleral icterus. Repeated radiology examination has revealed presence of gallstones.An option clearly is to proceed with cholecystectomy but this is not without inviting potential perioperative difficulties related to an operation length alone in this situation with a 78- year-old older gentleman with limited ability to interact or express difficulties in his own unique mix ofcomorbidities.Manage the continued drainage with the application of a superficial collection device such as a urostomy appliance. Watch for clinical signs of difficulty such as fever or change in attitude or activity especially with relation to fatty meals. Low threshold to reassess him and revisit his condition and the decision making. Staff with him report they're satisfied with an open ended follow-up for this and the recommendation may continue to watch and track his condition as outlined above.
--- OUTSIDE RECORDS SUMMARY | 2018-10-03 10:10 | XMS REPORT | Continuity of Care Document ---
:1940 External Reference #:[id number] Author Name Pratibha Ordoñez Care Team Providers Name Role Phone Kayla Whitten MD Care Team Information Certified Nutritionist Unavailable Kayla Whitten MD Primary Care Physician Unavailable Payers Date Identification Numbers Payment Provider Subscriber Policy Number: [id number] Medicare Jatin Cárdenas PayID: [id number] [address] [place] [address] Policy Number: [id number] Medicaid Jatin Cárdenas Group Name: 1 2 [address] PayID: [id number] [place] [address] Advance Directives Description No Information Available Problems Date Description Provider Status Onset: 01/06/2016 Benign essential hypertension Aston Hanson MD Active Onset: 01/06/2016 Mixed hyperlipidemia Aston Hanson MD Active Family History Description No Information Available Social History Type Date Description Comments Sex Unknown Marital Status Single Home Environment Lives In Adult Home Occupation Disabled Occupation [employer] Tobacco Use Start: Unknown Light tobacco smoker (10 or fewer cigarettes/day) ETOH Use Denies alcohol use Tobacco Use Start: Unknown Patient is a current smoker, smokes every day Recreational Drug Use Denies Drug Use Exercise Type/Frequency Does not exercise Allergies, Adverse Reactions, Alerts Date Description Reaction Status Severity Comments 01/13/2016 Penicillin Active 01/13/2016 Aspirin Active 01/13/2016 Levofloxacin Active 01/13/2016 Simvastatin Active 01/19/2017 Simvastatin Active 01/19/2017 Levofloxacin Active Medications Medication Date Status Form Strength Qnty SIG Indications Ordering Provider Multi-Day Active Tablets 1 by mouth Unknown Vitamins 00 every day Levothyroxine Active Tablets 50mcg 1 by mouth Unknown Sodium 00 every day Loperamide HCL Active Tablets 2mg 1 by mouth Unknown 00 after each unformed bm (max 8 times daily) Tylenol 00/00/00 Active Tablets 325mg 2 by mouth Unknown 00 every 4 hours as needed Atorvastatin Active Tablets 20mg 1 by mouth Unknown Calcium 00 every day Plavix Active Tablets 75mg 1 by mouth Unknown 00 every day Exelon Active Patches 9.5mg/24H apply 1 Unknown 00 24HR R patch daily Vitamin D3 Active Capsules 1000Unit 1 by mouth Unknown High Potency 00 every day Diabetic Active Liquid 100mg/5ML uad Unknown Tussin 00 Glimepiride Active Tablets 2mg 1 by mouth Unknown 00 every day Glucophage Active Tablets 500mg 1 by mouth Unknown 00 twice a day Citalopram Active Tablets 10mg 1 by mouth Unknown Hydrobromide 00 every day Cranberry Active Capsules 1000mg as Unknown Juice Extract 00 Directed Cure-ALL Active Cream as Unknown 00 Directed Debrox Active Solution 6.5% 1-5 drop Unknown 00 in right ear twice a day x 3- 4 days Lisinopril Active Tablets 2.5mg 1 by mouth Unknown 00 every day Phenytoin Active Capsules 100mg 2 Unknown Sodium 00 capsules Extended Twice Daily Triple Active Ointment 3.5-400-5 as Unknown Antibiotic 00 000 Directed Famotidine Active Tablets 40mg 1 tab by Unknown 00 mouth every day Acetaminophen Active Tablets 325mg 2 by mouth Unknown 00 every 4 hours as needed Apriso Active Caps ER 0.375gm 2 caps by Unknown 00 24HR mouth twice a day Clopidogrel Active Tablets 75mg 1 by mouth Unknown Bisulfate 00 every day Fiber-Lax Active Tablets 625mg 1 by mouth Unknown 00 every day Lorazepam 05/03/20 Hx Tablets 1mg 1tabs take 1 F41.9 Margie 16 - tablet MD Aston 01/20/20 once. 17 Vitamin D Hx 3000Units 1 po daily Unknown 00 - Unknown Ascorbic Acid Hx Tablets 500mg 1 by mouth Unknown 00 - every day 01/20/20 17 Amaryl Hx Tablets 2mg take one Unknown 00 - bid Unknown Metformin HCL Hx Tablets 500mg 1 by mouth Unknown 00 - twice a 01/20/20 day 17 Fiber-Lax Hx Tablets 500mg 1 by mouth Unknown 00 - prn Unknown Antacid Hx Suspension 200-200-2 10 Unknown 00 - 0mg/5ML milliliter 02/10/20 s every 8 17 hours as needed Celexa Hx Tablets 10mg one po @ Unknown 00 - hs Unknown Dilantin Hx Capsules 100mg 200 mg po Unknown 00 - bid Unknown Ferrous Hx Tablets 325(65Fe) 1 by mouth Unknown Sulfate 00 - mg every day Unknown Immunizations CPT Code Status Date Vaccine Lot # 11769 Given 03/21/2000 flu vaccination 05681 Given 03/10/1999 Influenza Virus Vaccine 90373 Given 03/10/1999 Influenza Virus Whole 74280 Given 03/18/1998 Influenza Virus Vaccine 08902 Given 04/24/1997 Influenza Virus Vaccine 60393 Given 05/23/1996 Influenza Virus Vaccine 77015 Given 07/13/1995 Tetnus Injection 77763 Given 07/13/1995 DT Vaccine Younger Than 7 Yrs 77759 Given 04/21/1994 Influenza Virus Vaccine Vital Signs Date Vital Result Comment 01/19/2017 11:48am BP Systolic 142 mmHg BP Diastolic 80 mmHg Height 67 inches 5'7" Weight 165.00 lb BMI (Body Mass Index) 25.8 kg/m2 BSA (Body Surface Area) 1.86 m2 [place] body weight in kilograms 67 kg 05/03/2016 [...] kg/m2 BSA (Body Surface Area) 1.89 m2 [place] body weight in kilograms 67 kg O2 % BldC Oximetry 95 % Results Test Date Facility Test Result H/L Range Note Xray 02/15/2017 [facility] - Radiology Gallbladder gbef 78%; [address] (Disida) [place] [address] [phone] Basic Metabolic 01/05/2017 [facility] Glucose 130 mg/dL High 74-[address] [place] [address] [phone] BUN 9 mg/dL N 7-18 Creatinine 0.4 [...] Plasma Serum or Plasma Basic Metabolic 01/05/2017 [facility] Glucose 131 High 74-[address] mg/[place] [address] [phone] BUN 11 mg/dL N 7-18 Creatinine 0.5 mg/dL Low 0.6-1.3 Glom Filtration Rate, Estimate >60 mL/min >60 If >60 mL/min >60 3 BUN/Creat 22.0 ratio Sodium 144 mmol/L N 136-145 Potassium 3.4 mmol/L Low 3.5-5.1 Chloride 113 mmol/L High 98-107 Carbon Dioxide 23 mmol/L N 21-32 Anion Gap 8 mEq/L N 8-16 Calcium 8.6 mg/dL N 8.5-10.1 CBC 01/05/2017 [facility] White Blood Count 5.9 K/uL N 3.4-10.[address] [place] [address] [phone] Red Blood Count 4.00 M/uL Low 4.20-5.80 [...] 9.9 fL N 6.6-10.6 Laboratory test 01/05/2017 [facility] C-Reactive 19.5 High <3.[address] Protein,Quant mg/[place] [address] [phone] Anion Gap 01/05/2017 N2N/CCD Import Anion Gap [...] 1.8-2. finding [address] mg/dL 4 [place], [place] [id number] [phone] C-Reactive Protein,Quant 28.2 mg/L High <3.0 Comprehensive Metabolic 01/04/2017 [facility] Glucose 109 mg/dL High 74-[address] [place], [place] [address] [phone] BUN 7 mg/dL N 7-18 Creatinine 0.5 [...] U/L High 45-117 Basic Metabolic Panel 01/04/2017 [facility] Glucose 108 mg/dL High 74-[address] [place], [place] [address] [phone] BUN 7 mg/dL N 7-18 Creatinine 0.5 mg/dL Low 0.6-1.3 Glom Filtration Rate, Estimate >60 mL/min >60 If >60 mL/min >60 5 BUN/Creat 14.0 ratio Sodium 147 mmol/L High 136-145 Potassium 3.6 mmol/L N 3.5-5.1 Chloride 115 mmol/L High 98-107 Carbon Dioxide 24 mmol/L N 21-32 Anion Gap 8 mEq/L N 8-16 Calcium 8.6 mg/dL N 8.5-10.1 CBC 01/04/2017 [facility] White Blood Count 4.7 K/uL N 3.4-10.[address] [place] [address] [phone] Red Blood Count 3.95 M/uL Low 4.20-5.80 [...] (set) studies (set) tests Aot Request 01/04/2017 [facility] Aot Request Unable to add [address] te <SEE NOTE> [place] [address] [phone] Tests to be added: PTT INR PT Prothrombin time 01/04/2017 N2N/CCD Import Prothrombin time 22.2 High 12.0-14.4 (PT) in platelet (PT) in platelet poor plasma by c poor plasma by coagulation assay Laboratory test 01/04/2017 [facility] Act Partial 45.9 seconds High 23.4-35.0 [address] [place] [address] [phone] Protime 01/04/2017 [facility] Protime 22.2 seconds High 12.0-14.[address] [place] [address] [phone] Inr 2.0 High 0.9-1.1 8 Laboratory test 01/03/2017 [facility] Magnesium 1.6 mg/dL Low 1.8-2.[address] [place], [place] [address] [phone] C-Reactive Protein,Quant 53.0 mg/L High <3.0 Basic Metabolic Panel 01/03/2017 [facility] Glucose 130 mg/dL High 74-106 [address] [place], [place] [address] [phone] BUN 7 mg/dL N 7-18 Creatinine 0.5 mg/dL Low 0.6-1.3 Glom Filtration Rate, Estimate >60 mL/min >60 If >60 mL/min >60 9 BUN/Creat 14.0 ratio Sodium 145 mmol/L N 136-145 Potassium 3.6 mmol/L N 3.5-5.1 Chloride 115 mmol/L High 98-107 Carbon Dioxide 23 mmol/L N 21-32 Anion Gap 7 mEq/L Low 8-16 Calcium 8.6 mg/dL N 8.5-10.1 CBC 01/03/2017 [facility] White Blood Count 4.8 K/uL N 3.4-10.5 [address] [place] [address] [phone] Red Blood Count 3.73 M/uL Low 4.20-5.80 [...] 11.1 fL High 6.6-10.6 Comprehensive Metabolic 01/03/2017 [facility] Glucose 129 mg/dL High 74-106 Panel [address] [place] [address] [phone] BUN 7 mg/dL N 7-18 Creatinine 0.5 [...] blood No Growth culture culture CBC 01/02/2017 [facility] White Blood Count 7.0 K/uL N 3.4-10.5 [address] [place], [place] [address] [phone] Red Blood Count 3.81 M/uL Low 4.20-5.80 [...] 11.1 fL High 6.6-10.6 Comprehensive Metabolic 01/02/2017 [facility] Glucose 131 mg/dL High 74-106 Panel [address] [place], [place] [address] [phone] BUN 12 mg/dL N 7-18 Creatinine 0.5 [...] U/L High 45-117 Basic Metabolic Panel 01/02/2017 [facility] Glucose 139 mg/dL High 74-[address] [place] [address] [phone] BUN 13 mg/dL N 7-18 Creatinine 0.5 mg/dL Low 0.6-1.3 Glom Filtration Rate, Estimate >60 mL/min >60 If >60 mL/min >60 12 BUN/Creat 26.0 ratio Sodium 144 mmol/L N 136-145 Potassium 3.9 mmol/L N 3.5-5.1 Chloride 113 mmol/L High 98-107 Carbon Dioxide 23 mmol/L N 21-32 Anion Gap 8 mEq/L N 8-16 Calcium 8.4 mg/dL Low 8.5-10.1 Blood Culture 01/02/2017 [facility] Blood Culture NO GROWTH: FINAL [address] Aerobic <SEE NOTE> [place] [address] [phone] Blood Culture Anaerobic NO GROWTH: FINAL <SEE NOTE> 14 Laboratory test 01/02/2017 [facility] Act Partial 45.2 High 23.4-35.[address] [place] [address] [phone] Protime 01/02/2017 [facility] Protime 18.3 High 12.0-14.[address] [place] [address] [phone] Inr 1.6 High 0.9-1.1 15 Blood Culture 01/02/2017 [facility] Blood Culture NO GROWTH: FINAL [address] Aerobic <SEE NOTE> [place] [address] [phone] Blood Culture Anaerobic NO GROWTH: FINAL <SEE [...] High 4.2- 6. 3 Lactic Acid 01/01/2017 [facility] Lactic Acid 1.8 mmol/L N 0.4-1. [address] [place] [address] [phone] Lab Reflex >2.0 for Sepsis? N Lactate 01/01/2017 N2N/CCD Import Lactate 1.8 0.4-1.9 [Moles/volume] in [Moles/volume] in Serum or Plasma Serum or Plasma CBS W/Automated 01/01/2017 [facility] White Blood Count 11.9 High 3.4-10.[address] [place] K/[place] [address] [phone] Red Blood Count 3.80 M/uL Low 4.20-5.80 [...] 33.0-73.0 Lymph % 2.9 % Low 20.0-42.0 [place] % 5.7 % N 0.0-10.0 Eo% 0.1 % N 0.0-6.6 Bas% 0.1 % N 0.0-1.1 Neut# 10.83 K/uL High 1.8-7.0 Lymph # 0.34 K/uL Low 1.0-4.0 [place] # 0.68 K/uL N 0.0-0.8 Eos # 0.01 K/uL N 0.0-0.5 Baso # 0.01 K/uL N 0.0-0.1 Glycohemoglobin 01/01/2017 [facility] Glycohemoglobin 7.4 % High 4.2-6.3 18 [address] (A1c) [place] [address] [phone] eAG 166 mg/dL Comprehensive Metabolic 01/01/2017 [facility] Glucose 128 mg/dL High 74-[address] [place] [address] [phone] BUN 24 mg/dL High 7-18 Creatinine 0.6 [...] Unloinc See Note 20 Blood Culture 12/31/2016 [facility] Blood Culture GRAM NEGATIVE [address] Aerobic BA <SEE NOTE> [place] [address] [phone] Quantity FROM BROTH N Blood Culture Anaerobic NO GROWTH: FINAL <SEE NOTE> 22 Ast-GN67 12/31/2016 [facility] Trimethoprim/Sulfamethoxazole <=[address] [place] [address] [phone] Ampicillin <=2 S Cefazolin <=4 S Ampicillin/Sulbactam <=2 S Ciprofloxacin >=4 R Piperacillin/Tazobactam <=4 S Ceftazidime <=1 S Ceftriaxone <=1 S Cefepime <=1 S Levofloxacin >=8 R Imipenem 0.5 S Gentamicin <=1 S Tobramycin <=1 S Blood Culture 12/31/2016 [facility] Blood Culture NO GROWTH: FINAL [address] Aerobic <SEE NOTE> [place] [address] [phone] Blood Culture Anaerobic NO GROWTH: FINAL <SEE NOTE> 24 Comprehensive Metabolic 12/31/2016 [facility] Glucose 324 mg/dL High 74-106 Panel [address] [place] [address] [phone] BUN 24 mg/dL High 7-18 Creatinine 1.0 [...] mmol/L High 0.4-1.9 26 finding [address] [place] [id number] [phone] Ketones Ur 12/31/2016 N2N/CCD Import Ketones Ur [...] 5.5 Low 6.5- 7.5 Laboratory test 12/31/2016 [facility] Legionella Negative Negative [address] [place] [place]igen,[place] [address] [phone] Streptococcus 12/31/2016 [facility] Specimen Source Urine . Pneumoniae Ag,Ur [address] [place] [address] [phone] Streptococcus Pneumoniae Ag,Ur NEGATIVE Negative Body Fluid [...] pneumoniae antigen detection detection Basic Metabolic 01/11/2016 [facility] Basic Metabolic <pending> 29 Panel [address] [facility] [place] [address] [phone] Glucose 135 mg/dL High 74-106 BUN 23 mg/dL High 7-18 Creatinine 0.6 mg/dL 0.6-1.3 Glom Filtration Rate, Estimate >60 mL/min >60 If >60 mL/min >60 30 BUN/Creat 38.3 ratio Sodium 145 mmol/L 136-145 Potassium 3.7 mmol/L 3.5-5.1 Chloride 113 mmol/L High 98-107 Carbon Dioxide 23 mmol/L 21-32 Anion Gap 9 mEq/L 8-16 Calcium 8.9 mg/dL 8.5-10.1 Laboratory test 01/11/2016 [facility] C-Reactive 16.6 High <3.0 finding [address] [facility] Protein,Quant mg/[place] [address] [phone] CBC 01/11/2016 [facility] White Blood Count 7.3 K/uL 3.4-10.[address] [place] [address] [phone] Red Blood Count 4.69 M/uL 4.20-5.80 Hemoglobin 12.3 gm/dL Low 12.8-17.0 Hematocrit 37.6 % Low 38.0-48.0 Mean Cell Volume 80.2 fl 80.0-96.0 Mean Corpuscular HGB 26.2 pg Low 27.0-33.0 Mean Corpuscular HGB Conc 32.7 g/dL 31.7-36.0 Platelet Count 271 K/uL 150-400 Red Cell Distri Width %CV 22.2 % High 11.6-15.8 Mean Platelet Volume 10.4 fL 6.6-10.6 Laboratory test 01/11/2016 [facility] Path Review: <pending> finding [address] [place] [address] [phone] Laboratory test 01/06/2016 N2N/CCD Import Bedside 217 High 70-110 finding Glucose Laboratory test 01/06/2016 [facility] Vancomycin,Tro 8.0 ug/mL Low 15.0-2 finding 134 [facility] ugh 0.0 [place] [address] [phone] Basic Metabolic 01/06/2016 [facility] Glucose 148 mg/dL High 74-106 Panel [address] [place] [address] [phone] BUN 11 mg/dL 7-18 Creatinine 0.7 mg/dL 0.6-1.3 Glom Filtration Rate, Estimate >60 mL/min >60 If >60 mL/min >60 31 BUN/Creat 15.7 ratio Sodium 141 mmol/L 136-145 Potassium 3.8 mmol/L 3.5-5.1 Chloride 109 mmol/L High 98-107 Carbon Dioxide 24 mmol/L 21-32 Anion Gap 8 mEq/L 8-16 Calcium 8.7 mg/dL 8.5-10.1 Laboratory test finding 01/06/2016 [facility] Magnesium 1.9 mg/dL 1.8-2.4 [address] [place] [address] [phone] C-Reactive Protein,Quant 74.9 mg/L High <3.0 CBC 01/06/2016 [facility] White Blood Count 6.3 K/uL 3.4-10.5 [address] [place] [address] [phone] Red Blood Count 4.72 M/uL 4.20-5.80 Hemoglobin [...] Sodium Level 141 136-145 Laboratory test 01/05/2016 [facility] Phenytoin See Note [address] (Dilantin) [place], [place] [address] [phone] Comprehensive 01/05/2016 [facility] Glucose 158 mg/dL High 74-10 Metabolic Panel [address] [place], [place] [address] [phone] BUN 17 mg/dL 7-18 Creatinine 0.5 mg/dL [...] Phosphatase 97 U/L 45-117 Laboratory test 01/05/2016 [facility] Phenytoin 5.1 ug/mL Low 10.0-20.[address] (Dilantin) [place] [address] [phone] CBC W/Automated 01/05/2016 [facility] White Blood 6.5 K/uL 3.4-10.[address] [place] [address] [phone] Red Blood Count 4.38 M/uL 4.20-5.80 Hemoglobin [...] 33.0-73.0 Lymph % 10.2 % Low 17.0-56.0 [place] % 11.3 % High 0.0-10.0 Eo% 3.7 % 0.0-5.0 Bas% 0.3 % 0.1-1.0 Neut# 4.81 K/uL 1.8-7.0 Lymph # 0.66 K/uL Low 1.8-7.0 [place] # 0.73 K/uL 0.0-0.8 Eos # 0.24 K/uL 0.0-0.5 Baso # 0.02 K/uL Low 0.1-0.2 Glycohemoglobin 01/05/2016 [facility] Glycohemoglobin 6.8 % High 4.2-6.[address] (A1c) [place] [address] [phone] eAG 148 mg/dL Laboratory test 01/05/2016 N2N/CCD [...] 1.2 0.4-1.9 finding Level Laboratory test 01/05/2016 [facility] Lactic Acid 1.2 mmol/L 0.4-1.9 finding [address] [place] [address] [phone] Blood Culture 01/04/2016 [facility] Blood Culture See Note 35 [address] [place] [address] [phone] Blood Culture Anaerobic See Note 36 Laboratory test 01/04/2016 [facility] Troponin-I < 0.015 ng/mL 37 finding [address] [address] [phone] Laboratory test 01/04/2016 N2N/CCD Import Aerobic Blood No Growth finding Culture Anaerobic Blood Culture No Growth Laboratory test finding 01/04/2016 [facility] Slide Review See Note 38 [address] [place] [address] [phone] Path Review: See Note 39 CBC W/Automated Diff 01/04/2016 [facility] White Blood 9.6 K/uL 3.4-10.5 [address] [place] [address] [phone] Red Blood Count 4.49 M/uL 4.20-5.80 Hemoglobin [...] 33.0-73.0 Lymph % 8.1 % Low 17.0-56.0 [place] % 8.8 % 0.0-10.0 Eo% 2.7 % 0.0-5.0 Bas% 0.3 % 0.1-1.0 Neut# 7.69 K/uL High 1.8-7.0 Lymph # 0.78 K/uL Low 1.8-7.0 [place] # 0.85 K/uL High 0.0-0.8 Eos # 0.26 K/uL 0.0-0.5 Baso # 0.03 K/uL Low 0.1-0.2 Laboratory test finding 01/04/2016 [facility] CK 112 U/L 39-308 40 [address] [place], [place] [address] [phone] NT-proBNP 666.0 pg/mL High <450 41 Troponin-I < 0.015 ng/mL 42 Comprehensive Metabolic 01/04/2016 [facility] Glucose 114 mg/dL High 74-106 Panel [address] [place], [place] [address] [phone] BUN 27 mg/dL High 7-18 Creatinine 0.8 [...] Creatine Kinase 112 39-308 Laboratory test 01/04/2016 [facility] Legionella Negative Negative [address] Antigen,Urine [place], [place] [address] [phone] Streptococcus 01/04/2016 [facility] Specimen Source Urine . Pneumoniae Ag,Ur [address] [place], [place] [address] [phone] Streptococcus Pneumoniae Ag,Ur NEGATIVE Negative Body Fluid [...] for more aggressive treatment of glycemia. The [place] [employer] recommends that a primary goal [...] be found at [email or web address]. 20 [employer] [place] [employer] guidelines require a culture to be performed on CSF specimens negative by bacterial antigen testing (Cap [email or web address].[id number]). Performed at: [facility] [id number] [employer]: Jatin Osborn MD, Phone: [phone] 21 GRAM NEGATIVE BACILLUS SEEN ON GRAM STAIN[place] [address]/01/17 by [facility] ESCHERICHIA COLI 22 NO GROWTH: FINAL REPORT [...] found at [email or web address]. 26 [place] [address]/31/16 by [facility].MICH 27 Presumptive negative for L. pneumophila serogroup 1 antigen in urine, suggesting no recent or current infection. Legionnaires' disease cannot be ruled out since other serogroups and species may also cause disease. Performed at: [facility] [id number] [employer]: Jatin Osborn MD, Phone: [phone] 28 [employer] [place] [employer] guidelines require a culture to be performed on CSF specimens negative by bacterial antigen testing (CAP [email or web address]). Performed at: [address] [id number] [employer]: Jatin Osborn MD, Phone: [phone] QUERY: Is Patient Fasting? Y 30 [...] for more aggressive treatment of glycemia. The [place] [employer] recommends that a primary goal [...] INDICATED,SLIDE SENT Hematology Consultation Final Report Case# [id number] Peripheral Blood smear: Peripheral blood was review [...] normal. Platelet estimate= Normal 45 Performed at: [facility] [id number] [employer]: Jatin Osborn MD, Phone: [phone] 46 [employer] [place] [employer] guidelines require a culture to be performed on CSF specimens negative by bacterial antigen testing (CAP [email or web address].[id number]). Performed at: [facility] [id number] [employer]: Jatin Osborn MD, Phone: [phone] Procedures Date Code Description Status 01/02/2017 90876 Echocardiogram Complete Completed 03/17/2015 34073 EKG Interpretation And Report Only Completed 07/01/2013 96782 EKG Interpretation And Report Only Completed 01/28/2010 97331 EKG Interpretation And Report Only Completed 02/10/2009 06001 EKG Interpretation And Report Only Completed 10/01/2007 74268 EKG Interpretation And Report Only Completed 01/12/2000 79169 Remove Impacted Cerumen Completed 07/24/1998 73216 Tympanometry Completed 07/24/1998 45354 Remove Impacted Cerumen Completed 06/14/1997 29629 EKG Interpretation And Report Only Completed 06/03/1996 46175 EKG Interpretation And Report Only Completed 05/10/1996 10250 EKG Interpretation And Report Only Completed 04/21/1994 05440 Tympanometry Completed Encounters Type Date Location Provider Dx Diagnosis Office Visit 03/01/2017 Surgical Office Gabriela Barba.Arelis Cholecystitis, 2:00p Christopher H., unspecified M.D. F03.90 Unspecified dementia without behavioral disturbance Office Visit 02/09/2017 Surgical Katharine Barba81.9 Cholecystitis, 9:00a Office Christopher H., unspecified M.D. F03.90 Unspecified dementia without behavioral disturbance Office Visit 01/19/2017 Surgical Office Katharine Barba81.9 Cholecystitis, 11:30a Christopher H., unspecified M.D. Office Visit 01/03/2017 Surgical Office Gabriela Barba.9 Cholecystitis, 10:27a Christopher H., unspecified M.D. Office [...] Moncho Torres, 599.0 UTI [facility] Site Not Spec Office Visit 11/08/2013 12:33p Kieran Acosta, 599.0 UTI [facility] Site Not Spec Plan of Treatment Future Appointment(s):09/26/2018 2:20 pm - Barry Clifford PA at Cardiology Ayyvae4509/20/2018 11:00 am - Jakob Barba M.D. at Surgical Nekuvx1310/19/2018 9:00 am - Conchita Garcia M.D. at Uflbsnl3903/01/2017 - Jakob Barba M.D.K81.9 Cholecystitis, unspecifiedComments:No indication for surgery/removal of gallbladder present. Return when necessary.F03.90 Unspecified dementia without behavioral disturbanceComments: Presence of his dementia and requires that the attending staff be aware of changes in behavior and other indications of abdominal discomfort following fatty meals; if this occurs he should be returned for evaluation of brought into the emergency department for urgent attention or intervention.
[2018-10-03 10:17] VITALS: BP 130/51
--- NOTE | 2018-10-03 10:41 | UC ---
General HPI - HPI Summary HPI Summary: Patient here with landscape engineer from [facility]. States he does have capacity on certain things, could not elaborate further. Staff noticed bruising on left hip and they were worried about hip fracture and brought him here. Patient roams freely throughout the house with a walker. No known falls. No known injuries. Patient denies any falls. Denies any pain. Moving around in rroom without issue. Denies any blood stools. Welfare Investigator here states he toilets himself, does have some help with his brief. Denies dizziness or lightheadedness. Has a bandage from a gallbladder drain that gets changed daily. Meds: Reviewed - History of Current Complaint Chief Complaint: Natasha Stated Complaint: SP FALL-BRUISING ON LOWER BACK Time Seen by Provider: 10/03/18 10:08 Pain Intensity: 0 - Allergy/Home Medications Allergies/Adverse Reactions: Allergies Allergy/AdvReac Type Severity Reaction Status Date / Time aspirin Allergy Unknown Verified 10/03/18 10:11 Reaction Details levofloxacin Allergy Unknown Verified 10/03/18 10:11 Reaction Details Penicillins Allergy Unknown Verified 10/03/18 10:11 Reaction Details simvastatin Allergy Unknown Verified 10/03/18 10:11 Reaction Details Home Medications: Home Medications Apixaban* [Eliquis*] 5 mg PO BID 10/03/18 [History Confirmed 10/03/18] Budesonide CAP(NF) 9 mg PO DAILY 10/03/18 [History Confirmed 10/03/18] Lisinopril [Lisinopril 2.5 MG-] 2.5 mg PO DAILY 10/03/18 [History Confirmed 06/23] Magnesium Oxide TAB* [MagOx 400 TAB*] 400 mg PO DAILY 10/03/18 [History Confirmed 10/03/18] Metoprolol Tartrate TAB* [Lopressor TAB*] 50 mg PO BID 10/03/18 [History Confirmed 10/03/18] glipiZIDE TAB* [Glucotrol TAB*] 10 mg PO DAILY 10/03/18 [History Confirmed 10/03] PMH/Surg Hx/FS Hx/Imm Hx Previously Healthy: No Endocrine History: Diabetes, Thyroid Disease, Hypothyroidism Cardiovascular History: Cardiac Disease Neurological History: Seizures Psychological History: Other - IDD - Surgical History Surgical History: Unable to Obtain/Confirm - Family History Known Family History: Positive: Unknown - pt unable to answer - Social History Alcohol Use: None Substance Use Type: None Smoking Status (MU): Former Smoker Type: Cigarettes Amount Used/How Often: 10 cig a day When Did the Patient Quit Smoking/Using Tobacco: 2 months ago Household Exposure Type: Cigarettes Review of Systems All Other Systems Reviewed And Are Negative: Yes Physical Exam Triage Information Reviewed: Yes Appearance: Well-Appearing Vital Signs: Initial Vital Signs Temp 97.9 F 10/03/18 10:11 Pulse 64 10/03/18 10:11 Resp 20 10/03/18 10:11 BP 130/51 10/03/18 10:11 Pulse Ox 99 10/03/18 10:11 Vital Signs Reviewed: Yes Neck: Positive: Supple, Nontender Respiratory: Positive: Lungs clear, Normal breath sounds Cardiovascular: Positive: RRR, No Murmur Abdomen Description: Positive: Nontender, Other: - Blood noted in brief, patient with positive hemoccult, blood stools. No hemorroids Bandage on rLW region with purulent drainage. Erythematous area surrounding area Skin: Positive: Other - ecchymosis over sacrum and left hip. Denies any pain with palpation Patient with skin break down, erythema over periarea Course/Dx - Course Course Of Treatment: This is a 78 yr old with IDD from a [place] [facility] who presented with bruise on hip Assessment COncern for GI bleed - +[facility]cult [facility]. Welfare Investigator unable to get anyone on the line from the house , to see if they noticed any blood in his briefs or any significant falls Patient to be transferred to [facility] - Sign out given to Cathy Capps Recommend transfer - go directly to ER at [facility] to evaluate GI bleeding with labs and any further imaging Welfare Investigator understands and is arranging transportation - Diagnoses Provider Diagnosis: GI bleed Discharge - Sign-Out/Discharge Documenting (check all that apply): Patient Departure All imaging exams completed and their final reports reviewed: No Studies - Discharge Plan Condition: Fair Disposition: HOME-RECOMMEND TO ED Referrals: Kayla Whitten MD [Primary Care Provider] - Additional Instructions: Recommend transfer - go directly to ER at [facility] to evaluate GI bleeding with labs and any further imaging Welfare Investigator understands and is arranging transportation - Billing Disposition and Condition Condition: FAIR Disposition: Home-Recommend to ED
== END 2018-10-03 10:53 | disposition home health service (06) ==
LOC: UCCORT 09:45
DX: K92.2 Gastrointestinal hemorrhage, unspecified (principal); E11.9 Type 2 diabetes mellitus without complications; E03.9 Hypothyroidism, unspecified; R56.9 Unspecified convulsions; Z87.891 Personal history of nicotine dependence; Z88.0 Allergy status to penicillin; Z88.8 Allergy status to other drugs, medicaments and biological substances
CPT/HCPCS: 82272; 99212; G0463

== ENCOUNTER 2019-04-20 10:37 | Emergency (ER) | payer MEDICARE, MEDICAID ==
--- OUTSIDE RECORDS SUMMARY | 2019-04-20 10:46 | XMS REPORT | Continuity of Care Document ---
:1940 External Reference #:[id number] Author Name Kayla Davis MD Address [address] [place] [address] Care Team Providers Name Role Phone Marcus Munoz M.D. Care Team Information Registered Nurse Step Down [phone] Nuno White MD Care Team Information Registered Nurse Step Down [phone] Jakob Barab MD - Surgery Care Team Information Registered Nurse Step Down [facility] - Care Team Information Registered Nurse Step Down [phone] Endocrinology, Diabetes & Metabolism Ana M Sears MD - Neurology Care Team Information Registered Nurse Step Down Jakob Stockton MD Care Team Information Registered Nurse Step Down [phone] - Urology Care Team Information Registered Nurse Step Down [phone] [place] - Cardiovascular Care Team Information Registered Nurse Step Down [phone] Disease Jarad Fournier M.D. Care Team Information Registered Nurse Step Down [phone] Bianca Angulo Care Team Information Registered Nurse Step Down [phone] Problems Active Problems Provider Date Hypothyroidism Jose Miguel Andujar DO Onset: 09/20/2012 Senile dementia Jose Miguel Andujar DO Onset: 01/30/2008 Epilepsy Jose Miguel Andujar DO Onset: 01/30/2008 Type 2 diabetes mellitus Jose Miguel Andujar DO Onset: 01/30/2008 Mixed hyperlipidemia Jose Miguel Andujar DO Onset: 01/30/2008 Benign prostatic hypertrophy without outflow Jose Miguel Andujar DO Onset: obstruction Benign essential hypertension Kayla Davis MD Onset: 10/02/2007 Pure hypercholesterolemia Jose Miguel Andujar DO Onset: 09/24/2014 Generalized anxiety disorder Jose Miguel Andujar DO Onset: 01/26/2015 Microscopic colitis Kayla Davis MD Onset: 06/22/2017 History of cerebrovascular accident without Kayla Davis MD Onset: 01/23 residual deficits Proteinuria Kayla Davis MD Onset: 01/23/2018 Age related macular degeneration Kayla Davis MD Onset: 01/23/2018 Viral disease Kayla Davis MD Onset: 08/08/2018 Long-term current use of anticoagulant Kayla Davis MD Onset: 08/08/2018 Ex-smoker Kayla Davis MD Onset: 08/22/2018 Paroxysmal atrial fibrillation Kayla Davis MD Onset: 08/22/2018 Social History Type Date Description Comments Sex Unknown Cigarette Use Negative For Currently smokes 1-5 Cigarettes Daily Tobacco Use Start: Unknown End: Patient is a former Quit smoking with [facility] [place] ; smoked < 1-5 cig per day, not eligible for lung cance rscreening Smoking Status Reviewed: 10/18/18 Patient is a former Quit smoking with [facility] ; smoked < 1-5 cig per day, not eligible for lung cance rscreening Allergies, Adverse Reactions, Alerts Active Allergies Reaction Severity Comments Date Aspirin 10/20/2005 Levaquin 07/23/2014 Penicillin Rash 07/25/2014 Zocor 06/22/2017 Medications Active Medications SIG Qnty Indications Ordering Date Provider Blood Glucose Test check blood sugar 1units E11.69 Maria Dolores, 09/10/2018 once daily and as MD Kayla Strips needed--needs to be from [facility] supplies Ranitidine 150 1 by mouth once a 90tabs K21.9 Maria Dolores, 08/31/2018 Maximum Strength day MD Kayla 150mg Tablets Magnesium Oxide Take 1 tablet by 30tabs Unknown 04/12/2018 mouth daily 400(240Mg) mg Tablets Stool Softener Take 1 capsule by 10caps Unknown 04/11/2018 100mg mouth Two times Capsules daily as needed for Constipation for up to 10 days Senna Take 2 tablets by 120tabs Unknown 04/11/2018 8.6mg Tablets mouth nightly Clopidogrel take one tablet 90tabs Z86.73 [place], 06/22/2017 Bisulfate daily. MD Kayla 75mg Tablets Metformin HCL take 1 tablets by 180tabs E11.9 Davis, 01/26/2015 500mg mouth twice daily MD Kayla Tablets with first bite of meal Atorvastatin Calcium take 1 tablet by 90tabs E78.2 [place], 07/23/2014 mouth every day MD Kayla 20mg Tablets Calcium + D3 Calcium With D Unknown 600/100 One PO qd [id number] Tablets Metoprolol Tartrate 1 by mouth twice a 180tabs I10 Davis, day effective MD Kayla 25mg Tablets I48.0 Phospha 250 Neutral take 1 tablet by 180tabs E11.69 Kayla Davis MD mouth twice [phone] Tablets daily I10 Glipizide take one tablet by E11.9 [facility] 10mg Tablets mouth qd in the Center morning Glucose Meter Test check blood sugar E11.9 Unknown Strips Advanced once daily and as Strips needed--per [facility] Feet Check For Concerns as needed Unknown Vital Signs last monday of Unknown each month Phenytoin Sodium 2 po bid G40.909 Unknown Extended 100mg Capsules Triple Antibiotic Plus as Needed Q 4 HR Unknown prn Ointment Blood Pressure Check qd Unknown Budesonide 3 by mouth every K52.838 Syam,Biswarup 3mg Caps DR Part day Acetaminophen 2 by mouth as Unknown 325mg Tablets Needed For Headache / Apin/ Or Fever Greater Than 100 Degrees MDD 6 Doses In 24 HR Fasting Blood Glucose Monitor Blood Unknown Testing Glucose Iff Less Than 70 Give Juice Then Contact RN, If Greater Than 150 Give Large Glass Of Water Then Lucas RN Multivitamin Adult 1 by mouth every Unknown Tablets day Lisinopril 1 by mouth every 90tabs E11.9 Kayla Davis, 2.5mg Tablets day I10 Exelon 1 to chest wall q 30units F03.90 Nuno White MD 9.5mg/24HR Patches 24 hours 24HR Citalopram Hydrobromide 1 by mouth every F41.1 Nuno White MD 10mg day Tablets Immunizations CPT Code Status Date Vaccine Reaction Lot # 53866 Given 03/05/2018 Influenza Virus Vaccine,Quadrivalent,Split,Pr eserv Free, 0.5mL,[place] [address] Given 05/11/2017 Fluzone Highdose Age 65 And Given at [facility], Over Preservative & Rt 281 Antibiotic Free 70179 Given 03/11/2015 Fluzone Highdose Age [address] [facility] Over Preservative & Antibiotic Free 61396 Given 01/26/2015 Prevnar 13 Pneumococal [id number] Conjugate Vaccine 60282 Given 03/27/2014 Afluria Or Fluvirin Flu Vac Intramuscular 82386 Given 05/06/2009 Pneumococcal 23 Immunization Adult Or Immunosuppressed Patient 52084 Given 03/26/2008 Afluria Or Fluvirin Flu Vac Intramuscular 77143 Given 04/02/2007 Afluria Or Fluvirin Flu Vac Intramuscular 80305 Given 04/02/2007 Afluria Or Fluvirin Flu Vac Intramuscular 54373 Given 04/02/2007 Afluria Or Fluvirin Flu Vac Intramuscular 44727 Given 04/24/2006 Afluria Or Fluvirin Flu Vac Intramuscular 15604 Given 08/15/2005 Tetanus And Diptheria Toxoid 7 Years And Older Preserv Free 14899 Given 04/07/2005 Afluria Or Fluvirin Flu Vac Intramuscular 06773 Given 03/21/2003 Afluria Or Fluvirin Flu Vac Intramuscular 14931 Refused 03/20/2019 Fluzone Highdose Age 65 And Over AWARE CAN GET AT PHARMACY Preservative & Antibiotic Free 39882 Refused 03/20/2019 Tdap (Adacel) Ages 7 And Above Only 01391 Refused 03/20/2019 Shingrix (Shingles) Zoster AWARE GYM MANAGER GET AT PHARMACY Vaccine HZV, Recombinant, Subunit, Adj Vital Signs Date Vital Result Comment 03/29/2019 1:17pm Body Temperature 97.3 F Weight 163.00 lb Heart Rate 80 /min by auscultation BP Systolic 140 mmHg BP Diastolic 54 mmHg Respiratory Rate 18 /min Height 66 inches 5'6" O2 % BldC Oximetry 96 % Ra BMI (Body Mass Index) 26.3 kg/m2 03/20/2019 11:03am Body Temperature 98.1 F Weight 158.00 lb Heart Rate 70 /min BP Systolic 120 mmHg BP Diastolic 70 mmHg Respiratory Rate 18 /min Height 66 inches 5'6" O2 % BldC Oximetry 96 % Ra BMI (Body Mass Index) 25.5 kg/m2 Results Test Date Facility Test Result H/L Range Note Aot Request 03/25/2019 [facility] Aot Request Test(s) added 1, 2 (315)- - Tests to be added: [email or web address] CBS W/Automated 03/25/2019 [facility] White Blood 6.0 K/ uL Normal 3.4-10.5 Diff (315)- - Count Red Blood Count 3.84 M/uL Low 4.20-5.80 Hemoglobin 12.4 gm/dL Low 12.8-17.0 Hematocrit 37.0 % Low 38.0-48.0 Mean Cell Volume 96.4 fl High 80.0-96.0 Mean Corpuscular HGB 32.3 pg Normal 27.0-33.0 Mean Corpuscular HGB Conc 33.5 g/dL Normal 31.7-36.0 Platelet Count 160 K/uL Normal 155-360 Red Cell Distri Width SD 52.6 fl High 36-51 Red Cell Distri Width %CV 15.0 % Normal 11.6-15.8 Mean Platelet Volume 11.4 fl High 6.6-10.6 Neut% 70.7 % Normal 33.0-73.0 Lymph % 15.0 % Low 20.0-42.0 [place] % 12.0 % High 0.0-10.0 Eo% 1.5 % Normal 0.0-6.6 Bas% 0.3 % Normal 0.0-1.1 Immature Grans 0.5 % Normal 0.0-5.0 NRBC % 0.0 /100WBC < 10/ 100 WBC Neut# 4.26 K/uL Normal 1.8-7.0 Lymph # 0.90 K/uL Low 1.0-4.0 [place] # 0.72 K/uL Normal 0.0-0.8 Eos # 0.09 K/uL Normal 0.0-0.5 Baso # 0.02 K/uL Normal 0.0-0.1 Immature Grans Absolute 0.03 K/uL NRBC # 0.00 K/uL Comprehensive 03/25/2019 [facility] Glucose 89 mg/dL Normal 74-106 Metabolic Panel (315)- - BUN 26 mg/dL High 7-18 Creatinine 0.9 mg/dL 0.6-1.3 Glom Filtration Rate, Estimate >60 mL/min >60 If >60 mL/min >60 3 BUN/Creat 28.8 ratio Sodium 141 mmol/L Normal 136-145 Potassium 3.7 mmol/L Normal 3.5-5.1 Chloride 110 mmol/L High 98-107 Carbon Dioxide 29 mmol/L Normal 21-32 Anion Gap 2 mEq/L Low 8-16 Calcium 8.8 mg/dL Normal 8.5-10.1 Total Protein 6.9 g/dL Normal 6.4-8.2 Albumin 3.4 g/dL Normal 3.4-5.0 Globulin 3.5 g/dL Normal 1.9-4.3 Alb/Glob 1.0 ratio Bilirubin,Total 0.2 mg/dL Normal 0.2-1.0 Sgot/Ast 43 U/L High 15-37 SGPT/Alt 55 U/L Normal 12-78 Alkaline Phosphatase 176 U/L High 45-117 Laboratory test 03/25/2019 [facility] Magnesium 2.0 mg/ dL Normal 1.8-2.4 finding (315)- - Troponin-I < 0.015 ng/mL 4 Thyroid Stim Hormone 0.57 uIU/mL Normal 0.30-4.20 Free T4 0.78 ng/dL Normal 0.76-1.46 Phenytoin (Dilantin) 13.9 ug/mL Normal 10.0-20.0 CBC with Auto Diff-fcmg 03/20/2019 [facility] WBC 9.7 K/uL 4.1-11.0 5 RBC 4.02 M/uL Low 4.60-6.10 Hemoglobin 12.8 gm/dL Low 13.5-18.0 Hematocrit 38.2 % Low 41.0-53.0 MCV 95.2 fL 80.0-97.0 MCH 31.9 pg 27.0-32.0 MCHC 33.6 g/dL 32.0-36.0 RDW 15.6 % High 11.5-14.5 PLT Count 219 K/ul 140-400 MPV 9.2 FL 7.1-10.7 Neutrophil 67.9 % 35.0-75.0 Lymphocyte 19.1 % 16.0-52.0 Monocyte 10.0 % 2.0-10.0 Eosinophil 2.4 % 0.0-5.0 Basophil 0.6 % 0.0-4.0 Abs Neutrophils 6.6 K/uL 2.1-8.0 Abs Lymphocytes 1.9 K/uL 0.8-5.5 Abs Monocytes 1.0 K/uL 0.1-1.0 Abs Eosinophils 0.2 K/uL 0.0-0.5 Abs Basophils 0.1 K/uL 0.0-0.3 Iron Panel 03/20/2019 [facility] Iron, Total 121 g/dL 65-175 Transferrin 216.0 mg/dL 203.0-362.0 Tibc (calc) 302 g/dL 261-478 % Iron Saturation 40.0 % 13.0-45.0 Laboratory test finding 03/20/2019 [facility] CPK 21 U/L 12-199 Comprehensive Met Panel-FCMG 03/20/2019 [facility] Sodium 145 mmol/L 135- 146 6 Potassium 4.4 mmol/L 3.5-5.2 Chloride# 112 mmol/L High 97-110 7 Carbon Dioxide 27 mmol/L 24-34 Calcium 9.5 mg/dL 8.5-10.5 8 Glucose 37 mg/dL Critical low 70-105 9 BUN 25 mg/dL 6-26 Creatinine 0.8 mg/dL 0.5-1.4 Total Protein 6.1 g/dL 6.0-8.0 Albumin 3.9 g/dL 3.6-4.9 Globulin 2.2 g/dL 2.0-3.5 A/G Ratio 1.8 Ratio 1.0-2.2 Total Bilirubin 0.3 mg/dL 0.1-1.3 Alkaline Phosphatase 154 U/L High 24-140 Alt 30 U/L 3-42 Ast 24 U/L 8-42 Anion Gap 6 mmol/L 5-15 10 Female Egfr 70 >60 11 Male Egfr 85 >60 12 Lipid 03/20/2019 [facility] Cholesterol 132 mg/dL 50-199 Triglycerides 131 mg/dL 30-200 HDL 34 mg/dL 29-71 13 Chol/ HDL Ratio 3.9 ratio Low 4.0-6.7 VLDL 26 mg/dL 2-29 LDL (Calc) 72 mg/dL 20-99 14 Hemoglobin A1c 03/08/2019 [facility] Hgb A1c MFr Bld 6.6 % High 4.0- 6.0 Est. average glucose Bld gHb Est-mCnc 143 mg/dL High <126 Laboratory test finding 03/08/2019 [facility] Glucose Poc 194 mg/dL High 70-140 CBC with Auto Diff-fcmg 11/30/2018 [facility] WBC 8.7 K/uL 4.1-11.0 RBC 4.10 M/uL Low 4.60-6.10 Hemoglobin 13.1 gm/dL Low 13.5-18.0 Hematocrit 39.4 % Low 41.0-53.0 MCV 95.9 fL 80.0-97.0 MCH 31.9 pg 27.0-32.0 MCHC 33.3 g/dL 32.0-36.0 RDW 14.8 % High 11.5-14.5 PLT Count 216 K/ul 140-400 MPV 9.1 FL 7.1-10.7 Neutrophil 73.5 % 35.0-75.0 Lymphocyte 14.9 % Low 16.0-52.0 Monocyte 8.3 % 2.0-10.0 Eosinophil 2.6 % 0.0-5.0 Basophil 0.7 % 0.0-4.0 Abs Neutrophils 6.4 K/uL 2.1-8.0 Abs Lymphocytes 1.3 K/uL 0.8-5.5 Abs Monocytes 0.7 K/uL 0.1-1.0 Abs Eosinophils 0.2 K/uL 0.0-0.5 Abs Basophils 0.1 K/uL 0.0-0.3 Comprehensive Met Panel-FCMG 11/30/2018 [facility] Sodium 142 mmol/L 135- 146 15 Potassium 4.8 mmol/L 3.5-5.2 Chloride# 106 mmol/L 97-110 16 Carbon Dioxide 31 mmol/L 24-34 Calcium 10.2 mg/dL 8.5-10.5 17 Glucose 48 mg/dL Critical low 70-105 18 BUN 30 mg/dL High 6-26 Creatinine 0.9 mg/dL 0.5-1.4 Total Protein 6.6 g/dL 6.0-8.0 Albumin 4.3 g/dL 3.6-4.9 Globulin 2.3 g/dL 2.0-3.5 A/G Ratio 1.9 Ratio 1.0-2.2 Total Bilirubin 0.3 mg/dL 0.1-1.3 Alkaline Phosphatase 134 U/L 24-140 Alt 40 U/L 3-42 Ast 38 U/L 8-42 Anion Gap 5 mmol/L 5-15 19 Female Egfr 64 >60 20 Male Egfr 82 >60 21 Phenytoin Free/Total-RL 11/30/2018 [facility] Phenytoin Free 1.2 ug/mL 22 Phenytoin Total 11.0 ug/mL 23 % Free Phenytoin 10.9 % 24 Laboratory test finding 11/30/2018 [facility] Phosphorus 3.4 mg/dL 2.5-5.0 25 [facility] 124 g/dL 65-175 Transferrin 261.0 mg/dL 203.0-362.0 Tibc (calc) 365 g/dL 261-478 % Iron Saturation 33.9 % 13.0-45.0 Hemoglobin A1c 11/06/2018 [facility] Hgb A1c MFr Bld 5.7 % 4.0-6.0 Est. average glucose Bld gHb Est-mCnc 117 mg/dL <126 Laboratory test 11/06/2018 [facility] Glucose Poc 120 mg/dL 70-140 finding CBS W/Automated 10/08/2018 [facility] White Blood 6.4 K/ uL Normal 3.4-10.5 26 Diff (315)- - Count Red Blood Count 3.46 M/uL Low 4.20-5.80 Hemoglobin 11.1 gm/dL Low 12.8-17.0 Hematocrit 33.3 % Low 38.0-48.0 Mean Cell Volume 96.2 fl High 80.0-96.0 Mean Corpuscular HGB 32.1 pg Normal 27.0-33.0 Mean Corpuscular HGB Conc 33.3 g/dL Normal 31.7-36.0 Platelet Count 236 K/uL Normal 155-360 Red Cell Distri Width SD 49.0 fl Normal 36-51 Red Cell Distri Width %CV 14.1 % Normal 11.6-15.8 Mean Platelet Volume 10.5 fl Normal 6.6-10.6 Neut% 66.5 % Normal 33.0-73.0 Lymph % 18.4 % Low 20.0-42.0 [place] % 10.7 % High 0.0-10.0 Eo% 3.3 % Normal 0.0-6.6 Bas% 0.6 % Normal 0.0-1.1 Immature Grans 0.5 % Normal 0.0-5.0 NRBC % 0.0 /100WBC < 10/ 100 WBC Neut# 4.23 K/uL Normal 1.8-7.0 Lymph # 1.17 K/uL Normal 1.0-4.0 [place] # 0.68 K/uL Normal 0.0-0.8 Eos # 0.21 K/uL Normal 0.0-0.5 Baso # 0.04 K/uL Normal 0.0-0.1 Immature Grans Absolute 0.03 K/uL NRBC # 0.00 K/uL Basic Metabolic 10/08/2018 [facility] Glucose 95 mg/dL Normal 74-106 Panel (315)- - BUN 19 mg/dL High 7-18 Creatinine 0.5 mg/dL Low 0.6-1.3 Glom Filtration Rate, Estimate >60 mL/min >60 If >60 mL/min >60 27 BUN/Creat 38.0 ratio Sodium 142 mmol/L Normal 136-145 Potassium 3.3 mmol/L Low 3.5-5.1 Chloride 112 mmol/L High 98-107 Carbon Dioxide 23 mmol/L Normal 21-32 Anion Gap 7 mEq/L Low 8-16 Calcium 9.0 mg/dL Normal 8.5-10.1 Laboratory test 10/08/2018 [facility] Phosphorous 2.9 mg/ dL Normal 2.5-4.0 finding (315)- - Magnesium 2.0 mg/dL Normal 1.8-2.4 CBS W/Automated 10/07/2018 [facility] White Blood 6.2 K/ uL Normal 3.4-10.5 Diff (315)- - Count Red Blood Count 3.63 M/uL Low 4.20-5.80 Hemoglobin 11.8 gm/dL Low 12.8-17.0 Hematocrit 34.9 % Low 38.0-48.0 Mean Cell Volume 96.1 fl High 80.0-96.0 Mean Corpuscular HGB 32.5 pg Normal 27.0-33.0 Mean Corpuscular HGB Conc 33.8 g/dL Normal 31.7-36.0 Platelet Count 223 K/uL Normal 155-360 Red Cell Distri Width SD 49.6 fl Normal 36-51 Red Cell Distri Width %CV 14.1 % Normal 11.6-15.8 Mean Platelet Volume 10.3 fl Normal 6.6-10.6 Neut% 66.3 % Normal 33.0-73.0 Lymph % 19.0 % Low 20.0-42.0 [place] % 10.5 % High 0.0-10.0 Eo% 3.2 % Normal 0.0-6.6 Bas% 0.5 % Normal 0.0-1.1 Immature Grans 0.5 % Normal 0.0-5.0 NRBC % 0.0 /100WBC < 10/ 100 WBC Neut# 4.13 K/uL Normal 1.8-7.0 Lymph # 1.18 K/uL Normal 1.0-4.0 [place] # 0.65 K/uL Normal 0.0-0.8 Eos # 0.20 K/uL Normal 0.0-0.5 Baso # 0.03 K/uL Normal 0.0-0.1 Immature Grans Absolute 0.03 K/uL NRBC # 0.00 K/uL Basic Metabolic 10/07/2018 [facility] Glucose 97 mg/dL Normal 74-106 Panel (315)- - BUN 14 mg/dL Normal 7-18 Creatinine 0.5 mg/dL Low 0.6-1.3 Glom Filtration Rate, Estimate >60 mL/min >60 If >60 mL/min >60 28 BUN/Creat 28.0 ratio Sodium 142 mmol/L Normal 136-145 Potassium 3.6 mmol/L Normal 3.5-5.1 Chloride 110 mmol/L High 98-107 Carbon Dioxide 23 mmol/L Normal 21-32 Anion Gap 9 mEq/L Normal 8-16 Calcium 9.0 mg/dL Normal 8.5-10.1 Laboratory test 10/07/2018 [facility] Phosphorous 3.1 mg/ dL Normal 2.5-4.0 finding (315)- - Magnesium 1.9 mg/dL Normal 1.8-2.4 Free T4 10/06/2018 [facility] Free T4 0.92 ng/dL Normal 0.76-1.46 (315)- - Reflex add FT3? N Reflex add FT4? Y TSH Reflex FT4 10/06/2018 [facility] Thyroid Stim 0.11 uIU/mL Low 0.30-4.20 And/Or FT3 (315)- - Hormone Reflex add FT3? N Reflex add FT4? Y Magnesium 10/06/2018 [facility] Magnesium 2.0 mg/dL Normal 1.8-2.4 (315)- - Reflex add FT3? N Reflex add FT4? Y Phosphorous 10/06/2018 [facility] Phosphorous 3.0 mg/dL Normal 2.5-4.0 (315)- - Reflex add FT3? N Reflex add FT4? Y Basic Metabolic Panel 10/06/2018 [facility] Glucose 110 mg/dL High 74-106 (315)- - BUN 17 mg/dL Normal 7-18 Creatinine 0.6 mg/dL Normal 0.6-1.3 Glom Filtration Rate, Estimate >60 mL/min >60 If >60 mL/min >60 29 BUN/Creat 28.3 ratio Sodium 141 mmol/L Normal 136-145 Potassium 3.8 mmol/L Normal 3.5-5.1 Chloride 109 mmol/L High 98-107 Carbon Dioxide 26 mmol/L Normal 21-32 Anion Gap 6 mEq/L Low 8-16 Calcium 9.0 mg/dL Normal 8.5-10.1 Reflex add FT3? N Reflex add FT4? Y CBS W/Automated 10/06/2018 [facility] White Blood 6.6 K/ uL Normal 3.4-10.5 Diff (315)- - Count Red Blood Count 3.62 M/uL Low 4.20-5.80 Hemoglobin 11.4 gm/dL Low 12.8-17.0 Hematocrit 35.4 % Low 38.0-48.0 Mean Cell Volume 97.8 fl High 80.0-96.0 Mean Corpuscular HGB 31.5 pg Normal 27.0-33.0 Mean Corpuscular HGB Conc 32.2 g/dL Normal 31.7-36.0 Platelet Count 238 K/uL Normal 155-360 Red Cell Distri Width SD 51.7 fl High 36-51 Red Cell Distri Width %CV 14.2 % Normal 11.6-15.8 Mean Platelet Volume 10.8 fl High 6.6-10.6 Neut% 67.8 % Normal 33.0-73.0 Lymph % 17.0 % Low 20.0-42.0 [place] % 11.1 % High 0.0-10.0 Eo% 2.7 % Normal 0.0-6.6 Bas% 0.6 % Normal 0.0-1.1 Immature Grans 0.8 % Normal 0.0-5.0 NRBC % 0.0 /100WBC < 10/ 100 WBC Neut# 4.50 K/uL Normal 1.8-7.0 Lymph # 1.13 K/uL Normal 1.0-4.0 [place] # 0.74 K/uL Normal 0.0-0.8 Eos # 0.18 K/uL Normal 0.0-0.5 Baso # 0.04 K/uL Normal 0.0-0.1 Immature Grans Absolute 0.05 K/uL NRBC # 0.00 K/uL Glycohemoglobin A1c 10/05/2018 [facility] Glycohemoglobin 5.9 % Normal 4.2-6.3 30 (315)- - (A1c) eAG 123 mg/dL CBC 10/04/2018 [facility] White Blood Count 8.0 K/uL Normal 3.4-10.5 31 (315)- - Red Blood Count 3.58 M/uL Low 4.20-5.80 Hemoglobin 11.7 gm/dL Low 12.8-17.0 Hematocrit 35.2 % Low 38.0-48.0 Mean Cell Volume 98.3 fl High 80.0-96.0 Mean Corpuscular HGB 32.7 pg Normal 27.0-33.0 Mean Corpuscular HGB Conc 33.2 g/dL Normal 31.7-36.0 Platelet Count 214 K/uL Normal 155-360 Red Cell Distri Width SD 50.7 fl Normal 36-51 Red Cell Distri Width %CV 14.0 % Normal 11.6-15.8 Mean Platelet Volume 11.3 fl High 6.6-10.6 NRBC % 0.0 /100WBC < 10/ 100 WBC Comprehensive 10/04/2018 [facility] Glucose 140 mg/dL High 74-106 32 Metabolic Panel (315)- - BUN 20 mg/dL High 7-18 Creatinine 0.5 mg/dL Low 0.6-1.3 Glom Filtration Rate, Estimate >60 mL/min >60 If >60 mL/min >60 33 BUN/Creat 40.0 ratio Sodium 141 mmol/L Normal 136-145 Potassium 3.8 mmol/L Normal 3.5-5.1 Chloride 109 mmol/L High 98-107 Carbon Dioxide 25 mmol/L Normal 21-32 Anion Gap 7 mEq/L Low 8-16 Calcium 9.0 mg/dL Normal 8.5-10.1 Total Protein 6.2 g/dL Low 6.4-8.2 Albumin 3.0 g/dL Low 3.4-5.0 Globulin 3.2 g/dL Normal 1.9-4.3 Alb/Glob 0.9 ratio Bilirubin,Total 0.2 mg/dL Normal 0.2-1.0 Sgot/Ast 32 U/L Normal 15-37 SGPT/Alt 38 U/L Normal 12-78 Alkaline Phosphatase 182 U/L High 45-117 Laboratory test 10/04/2018 [facility] Phosphorous 2.9 mg/ dL Normal 2.5-4.0 finding (315)- - Magnesium 1.9 mg/dL Normal 1.8-2.4 C-Reactive Protein,Quant 21.2 mg/L High <3.0 Laboratory test 10/03/2018 [facility] Phenytoin 9.0 ug/ mL Low 10.0-20.0 34 finding (315)- - (Dilantin) 1 ABD PAIN GALLBLADDER? 2 Tests: dilantin Instructions: 3 Note: Persistent reduction for 3 months or more in an eGFR <60 mL/min/1.73 m2 defines CKD. Patients with eGFR values >/=60 mL/min/1.73 m2 may also have CKD if evidence of persistent proteinuria is present. The original MDRD equation for estimated GFR is not valid for patients less than 18 years of age. Additional information may be found at www.kdoqi.org. 4 0.0 - 0.045 ng/mL: Normal 0.046 - 0.5 ng/mL: Suggestive 0.6 - 1.5 ng/mL: Consistent 5 today letter 6 Updated reference range on new analyzer 7 Updated reference range on new analyzer 8 Updated reference range 10-03-2018 9 Critical Result [id number] Verified by repeat analysis and Called to: DR. DAVIS at: 03/20/2019 20:14:01 by:NICOLE SINGLETON 10 Updated Reference Range 11 Concerning GFR Guidelines for Americans: Normal function or mild renal disease, if clinically at risk: >/= 60 mL/min Moderately decreased: 30-59 Severely decreased: 15-29 Renal failure: <15 There is reduced accuracy above 60ml/min/1.73 m squared, but the numeric value may be clinically useful in the near 60 range 12 Concerning GFR Guidelines: Normal function or mild renal disease, if clinically at risk: >/= 60 mL/min Moderately decreased: 30-59 Severely decreased: 15-29 Renal failure: <15 There is reduced accuracy above 60ml/min/1.73 m squared, but the numeric value may be clinically useful in the near 60 range Glomerular Filtration Rate (GFR) is estimated based on the CKD-EPI equation, which assumes a steady state for creatinine as recommended by the National Kidney Disease Education Program in conjunction with the National Institutes of Health and the National Kidney Foundation. Clinical conditions in which it may be necessary to measure GFR by using clearance methods include extremes of age and body size, severe malnutrition or obesity, diseases of skeletal muscle, paraplegia or quadriplegia, vegetarian diet, rapidly changing kidney function, and calculation of the dose of potentially toxic drugs that are excreted by the kidneys. 13 Per NCEP ATP III Guidelines: Results lower than 40 mg/dL are suggestive of increased risk for coronary artery disease. Results > or = to 60 mg/dL are considered a negative risk factor. 14 Per NCEP ATP III Guidelines: Normal Population <130 Patients with medical conditions: CHD/DM Optimal: <100 Borderline high: 130-159 High: 160-189 Very high: >189 15 Updated reference range on new analyzer 16 Updated reference range on new analyzer 17 Updated reference range 10-03-2018 18 Critical Result [id number] Verified by repeat analysis and Called to: ROLAND at: 11/30/2018 14:01:28 by:BEN SAAVEDRA 19 Updated Reference Range 20 Concerning GFR Guidelines for Americans: Normal function or mild renal disease, if clinically at risk: >/= 60 mL/min Moderately decreased: 30-59 Severely decreased: 15-29 Renal failure: <15 There is reduced accuracy above 60ml/min/1.73 m squared, but the numeric value may be clinically useful in the near 60 range 21 Concerning GFR Guidelines: Normal function or mild renal disease, if clinically at risk: >/= 60 mL/min Moderately decreased: 30-59 Severely decreased: 15-29 Renal failure: <15 There is reduced accuracy above 60ml/min/1.73 m squared, but the numeric value may be clinically useful in the near 60 range Glomerular Filtration Rate (GFR) is estimated based on the CKD-EPI equation, which assumes a steady state for creatinine as recommended by the National Kidney Disease Education Program in conjunction with the National Institutes of Health and the [employer]. Clinical conditions in which it may be necessary to measure GFR by using clearance methods include extremes of age and body size, severe malnutrition or obesity, diseases of skeletal muscle, paraplegia or quadriplegia, vegetarian diet, rapidly changing kidney function, and calculation of the dose of potentially toxic drugs that are excreted by the kidneys. 22 Reference range: 1.0 to 2.5 23 Reference range: 10.0 to 20.0 24 Reference range: 8.0 to 14.0 INTERPRETIVE INFORMATION: Phenytoin, Free And Total Phenytoin - Total Therapeutic: 10.0-20.0 ug/mL Toxic: Greater than 30.0 ug/mL Phenytoin - Free Level Therapeutic: 1.0-2.5 ug/mL Toxic: Greater than 2.5 ug/mL Phenytoin - Percent Free 8.0-14.0% The therapeutic range is based on serum pre-dose (trough) draw at steady-state concentration. Free phenytoin may be important to monitor in patients with altered or unpredictable protein binding capacity because phenytoin is highly bound (greater than 90 percent) at therapeutic concentrations. Phenytoin is also subject to drug-drug interactions due to displacement of protein binding and extensive metabolism. Cross-reactivity with metabolites may account for differences in phenytoin concentrations among analytical methods. Calculating percent free attempts to minimize differences in assay cross-reactivity and may be useful in dose optimization. Test developed and characteristics determined by [facility]. See Compliance Statement B: [employer] Performed by [facility], [address] [place] [address],[place] [address] www.The Society, Tor Kowalski MD, Lab. Director Unless otherwise specified, testing performed by [facility] [address] [place] [id number] 25 in 1-2 weeks stopping phos 26 FALLS, UTI, CELLULITIS 27 Note: Persistent reduction for 3 months or more in an eGFR <60 mL/min/1.73 m2 defines CKD. Patients with eGFR values >/=60 mL/min/1.73 m2 may also have CKD if evidence of persistent proteinuria is present. The original MDRD equation for estimated GFR is not valid for patients less than 18 years of age. Additional information may be found at [email or web address]. 28 Note: Persistent reduction for 3 months or more in an eGFR <60 mL/min/1.73 m2 defines CKD. Patients with eGFR values >/=60 mL/min/1.73 m2 may also have CKD if evidence of persistent proteinuria is present. The original MDRD equation for estimated GFR is not valid for patients less than 18 years of age. Additional information may be found at [email or web address]. 29 Note: Persistent reduction for 3 months or more in an eGFR <60 mL/min/1.73 m2 defines CKD. Patients with eGFR values >/=60 mL/min/1.73 m2 may also have CKD if evidence of persistent proteinuria is present. The original MDRD equation for estimated GFR is not valid for patients less than 18 years of age. Additional information may be found at [email or web address]. 30 Elevated levels of HbA1c suggest the need for more aggressive treatment of glycemia. The [employer] recommends that a primary goal of therapy should be a HbA1c of <7% and that physicians should re-evaluate the treatment regimen in patients with HbA1c values consistently >8%. 31 FALLS,UTI,CELLULITIS 32 FALLS, UTI, CELLULITIS 33 Note: Persistent reduction for 3 months or more in an eGFR <60 mL/min/1.73 m2 defines CKD. Patients with eGFR values >/=60 mL/min/1.73 m2 may also have CKD if evidence of persistent proteinuria is present. The original MDRD equation for estimated GFR is not valid for patients less than 18 years of age. Additional information may be found at [email or web address]. 34 FALLS,UTI,CELLULITIS Procedures Date Code Description Status 03/29/2019 09581 Measure Blood Oxygen Level Single Determination Completed 03/29/2019 91467 Electrocardiogram Complete Completed 03/20/2019 47800 Measure Blood Oxygen Level Single Determination Completed 10/18/2018 31446 Electrocardiogram Complete Completed 07/01/2016 [id number] Colonoscopy Completed Medical Devices Description No Information Available Encounters Type Date Location Provider Dx Diagnosis Office Visit 03/20/2019 [facility] Kayla Davis, G40.909 Epilepsy, unsp, not 10:45a MD intractable, without status epilepticus F03.90 Unspecified dementia without behavioral disturbance I10 Essential (primary) hypertension D64.9 Anemia, unspecified I48.0 Paroxysmal atrial fibrillation E11.9 Type 2 diabetes mellitus without complications E11.69 Type 2 diabetes mellitus with other specified complication K80.67 Calculus of GB and bile duct w ac and chr cholecyst w obst F41.1 Generalized anxiety disorder R80.9 Proteinuria, unspecified Z87.891 Personal history of nicotine dependence Z79.01 half-way (current) use of anticoagulants E78.2 Mixed hyperlipidemia K21.9 Gastro-esophageal reflux disease without esophagitis H35.30 Unspecified macular degeneration Z86.73 Prsnl hx of TIA (TIA), and cereb infrc w/o resid deficits K52.838 Other microscopic colitis Z02.89 Encounter for other administrative examinations Z23 Encounter for immunization Z68.25 Body mass index (BMI) 25.0-25.9, adult Office Visit 03/08/2019 2:30p [facility] Shirley Umanzor PA W01.0xxD Fall same lev from slip/trip w/o strike against object, subs G40.909 Epilepsy, unsp, not intractable, without status epilepticus F03.90 Unspecified dementia without behavioral disturbance Z68.25 Body mass index (BMI) 25.0-25.9, adult Office Visit 11/21/2018 3:00p [facility] Kayla Davis MD I10 Essential ( primary) hypertension I48.0 Paroxysmal atrial fibrillation E11.9 Type 2 diabetes mellitus without complications E11.69 Type 2 diabetes mellitus with other specified complication D64.9 Anemia, unspecified Office Visit 10/18/2018 9:00a [facility] Kayla Davis MD N30.01 Acute cystitis with hematuria R29.6 Repeated falls Z00.01 Encounter for general adult medical exam w abnormal findings S72.001D Fx unsp part of nk of r femr, subs for clos fx w routn heal K80.67 Calculus of GB and bile duct w ac and chr cholecyst w obst I10 Essential (primary) hypertension E03.9 Hypothyroidism, unspecified F41.1 Generalized anxiety disorder R80.9 Proteinuria, unspecified G40.909 Epilepsy, unsp, not intractable, without status epilepticus F03.90 Unspecified dementia without behavioral disturbance Z87.891 Personal history of nicotine dependence Z79.01 half-way (current) use of anticoagulants I48.0 Paroxysmal atrial fibrillation D50.0 Iron deficiency anemia secondary to blood loss (chronic) E78.2 Mixed hyperlipidemia E11.69 Type 2 diabetes mellitus with other specified complication K21.9 Gastro-esophageal reflux disease without esophagitis H35.30 Unspecified macular degeneration Z86.73 Prsnl hx of TIA (TIA), and cereb infrc w/o resid deficits E11.9 Type 2 diabetes mellitus without complications K52.838 Other microscopic colitis I45.10 Unspecified RIGHT bundle-branch block Assessments Date Code Description Provider 03/29/2019 R10.84 Generalized abdominal pain Kayla Davis MD 03/29/2019 R00.1 Bradycardia, unspecified Kayla Davis MD 03/29/2019 I45.10 Unspecified RIGHT bundle-branch block Kayla Davis MD 03/29/2019 I10 Essential (primary) hypertension Kayla Davis MD 03/29/2019 Z23 Encounter for immunization Kayla Davis MD 03/29/2019 Z68.26 Body mass index (BMI) 26.0-26.9, adult Kayla Davis MD 03/20/2019 D64.9 Anemia, unspecified Kayla Davis MD 03/20/2019 G40.909 Epilepsy, unspecified, not intractable, Kayla Davis MD without status epile 03/20/2019 E78.2 Mixed hyperlipidemia Kayla Davis MD 03/20/2019 F03.90 Unspecified dementia without behavioral Kayla Davis MD disturbance 03/20/2019 I10 Essential (primary) hypertension Kayla Davis MD 03/20/2019 D64.9 Anemia, unspecified Kayla Davis MD 03/20/2019 I48.0 Paroxysmal atrial fibrillation Kayla Davis MD 03/20/2019 E11.9 Type 2 diabetes mellitus without Kayla Davis MD complications 03/20/2019 E11.69 Type 2 diabetes mellitus with other Kayla Davis MD specified complication 03/20/2019 K80.67 Calculus of gallbladder and bile duct Kayla Davis MD with acute and chronic 03/20/2019 F41.1 Generalized anxiety disorder Kayla Davis MD 03/20/2019 R80.9 Proteinuria, unspecified Kayla Davis MD 03/20/2019 Z87.891 Personal history of nicotine dependence Kayla Davis MD 03/20/2019 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 Kayla Davis MD 03/20/2019 E78.2 Mixed hyperlipidemia Kayla Davis MD 03/20/2019 K21.9 Gastro-esophageal reflux disease without Kayla Davis MD esophagitis 03/20/2019 H35.30 Unspecified macular degeneration Kayla Davis MD 03/20/2019 Z86.73 Personal history of transient ischemic Kayla Davis MD attack (TIA), and cer 03/20/2019 K52.838 Other microscopic colitis Kayla Davis MD 03/20/2019 Z02.89 Encounter for other administrative Kayla Davis MD examinations 03/20/2019 Z23 Encounter for immunization Kayla Davis MD 03/20/2019 Z68.25 Body mass index (BMI) 25.0-25.9, adult Kayla Davis MD 03/20/2019 D64.9 Anemia, unspecified Schedule, Laboratory 03/20/2019 E78.2 Mixed hyperlipidemia Schedule, Laboratory 03/20/2019 D64.9 Anemia, unspecified [facility] 03/20/2019 E78.2 Mixed hyperlipidemia [facility] 03/08/2019 W01.0xxD Fall on same level from slipping, Shirley Umanzor PA tripping and stumbling without subsequent striking against object, subsequent encounter 03/08/2019 G40.909 Epilepsy, unspecified, not intractable, Erna, Shirley, PA without status epile 03/08/2019 F03.90 Unspecified dementia without behavioral Shirley Umanzor PA disturbance 03/08/2019 Z68.25 Body mass index (BMI) 25.0-25.9, adult Shirley Umanzor PA 11/30/2018 I10 Essential (primary) hypertension Vamsi Cowart MD 11/30/2018 I10 Essential (primary) hypertension Schedule, Laboratory 11/30/2018 D64.9 Anemia, unspecified Vamsi Cowart MD 11/30/2018 D64.9 Anemia, unspecified Schedule, Laboratory 11/30/2018 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, not intractable, without status epilepticus 11/30/2018 G40.209 Local-rel symptc epi w cmplx prt seiz,not Schedule, Laboratory ntrct,w/o stat epi 11/30/2018 I10 Essential (primary) hypertension [facility] 11/30/2018 D64.9 Anemia, unspecified [facility] 11/30/2018 G40.209 Local-rel symptc epi w cmplx prt seiz,not [facility] ntrct,w/o stat epi 11/21/2018 I10 Essential (primary) hypertension Kayla Davis MD 11/21/2018 I48.0 Paroxysmal atrial fibrillation Kayla Davis MD 11/21/2018 E11.9 Type 2 diabetes mellitus without Kayla Davis MD complications 11/21/2018 E11.69 Type 2 diabetes mellitus with other Kayla Davis MD specified complication 11/21/2018 D64.9 Anemia, unspecified Kayla Davis MD 10/18/2018 N30.01 Acute cystitis with hematuria Kayla Davis MD 10/18/2018 R29.6 Repeated falls Kayla Davis MD 10/18/2018 Z00.01 Encounter for general adult medical Kayla Davis MD examination with abnorma 10/18/2018 S72.001D Fracture of unspecified part of neck of Kayla Davis MD RIGHT femur, subsequ 10/18/2018 K80.67 Calculus of gallbladder and bile duct Kayla Davis MD with acute and chronic 10/18/2018 I10 Essential (primary) hypertension Kayla Davis MD 10/18/2018 E03.9 Hypothyroidism, unspecified Kayla Davis MD 10/18/2018 F41.1 Generalized anxiety disorder Kayla Davis MD 10/18/2018 R80.9 Proteinuria, unspecified Kayla Davis MD 10/18/2018 G40.909 Epilepsy, unspecified, not intractable, Kayla Davis MD without status epile 10/18/2018 F03.90 Unspecified dementia without behavioral Kayla Davis MD disturbance 10/18/2018 Z87.891 Personal history of nicotine dependence Kayla Davis MD 10/18/2018 Z79.01 half-way (current) use of anticoagulants Kayla Davis MD 10/18/2018 I48.0 Paroxysmal atrial fibrillation Kayla Davis MD 10/18/2018 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) 10/18/2018 E78.2 Mixed hyperlipidemia Kayla Davis MD 10/18/2018 E11.69 Type 2 diabetes mellitus with other Kayla Davis MD specified complication 10/18/2018 K21.9 Gastro-esophageal reflux disease without Kayla Davis MD esophagitis 10/18/2018 H35.30 Unspecified macular degeneration Kayla Davis MD 10/18/2018 Z86.73 Personal history of transient ischemic Kayla Davis MD attack (TIA), and cer 10/18/2018 E11.9 Type 2 diabetes mellitus without Kayla Davis MD complications 10/18/2018 K52.838 Other microscopic colitis Kayla Davis MD 10/18/2018 I45.10 Unspecified RIGHT bundle-branch block Kayla Davis MD Plan of Treatment Future Appointment(s):10/21/2019 2:00 pm - Kayla Davis MD at [facility]2018 - Kayla Davis, MDR10.84 Generalized abdominal painComments:no pain on exam today. no concerns on abd US or labs done in [facility] [facility] for concernsFollow up:fu as oypoflwQ34.1 Bradycardia, unspecifiedNew Orders:Holter Monitor, Ordered: 03/29/19Comments:episode of bradycardia may have been a mis read per ER noteson ekg today has RBBB and frquent pvc will check holter monitor. seek care for any signs of syncope or utdgxageV56.10 Unspecified RIGHT bundle-branch blockNew Orders:Holter Monitor, Ordered: 03/29/19I10 Essential ( primary) hypertensionComments:Htn--BPs appear stable and in good control, reminded goal of BP < 150/90 given age and conditions. Continue current meds , please call for medication side effects such as cough, rash or any concerns. Encouraged diet modified in fat and no added salt. Limit alcohol to < 1 per day. Encouraged regular exercise of 30 min most days per week. Encouraged pt to continue to monitor BP and call if > 140/90 on a regular basis. Please call if you feel your blood pressure is under 110 systolic and/or causing you symptoms such as dizziness, lightheadedness, or other concerns.Z23 Encounter for immunizationComments:may get flu vax at pharmacy , should get high dose for seniors ; if not available get the usual flu vax and then get the seniors dose as a booster when ssshbdxdvP27.26 Body mass index (BMI) 26.0-26.9, adultComments:Recommend reduced calorie healthy diet and regular exercise to help with weight loss. Functional Status Description No Information Available Mental Status Description No Information Available Referrals Description No Information Available
--- OUTSIDE RECORDS SUMMARY | 2019-04-20 10:46 | XMS REPORT | Continuity of Care Document ---
:1940 External Reference #:[id number] Author Name Kayla Whitten MD Address [address] [place] [address] Care Team Providers Name Role Phone Marcus Munoz M.D. Care Team Information Order Runner [phone] Nuno White MD Care Team Information Order Runner [phone] Jakob Barba MD - Surgery Care Team Information Order Runner [facility] - Care Team Information Order Runner [phone] Endocrinology, Diabetes & Metabolism Ana M Sears MD - Neurology Care Team Information Order Runner [phone] Jakob Stockton MD Care Team Information Order Runner [phone] - Urology Care Team Information Order Runner [phone] Inder Ford - Cardiovascular Care Team Information Order Runner [phone] Disease Jarad Fournier M.D. Care Team Information Order Runner [phone] Bianca Angulo Care Team Information Order Runner [phone] Problems Active Problems Provider Date Hypothyroidism Jose Miguel Andujar DO Onset: 09/20/2012 Senile dementia Jose Miguel Andujar DO Onset: 01/30/2008 Epilepsy Jose Miguel Andujar DO Onset: 01/30/2008 Type 2 diabetes mellitus Jose Miguel Andujar DO Onset: 01/30/2008 Mixed hyperlipidemia Jose Miguel Andujar DO Onset: 01/30/2008 Benign prostatic hypertrophy without outflow Jose Miguel Andujar DO Onset: obstruction Benign essential hypertension Kayla Whitten MD Onset: 10/02/2007 Pure hypercholesterolemia Jose Miguel Andujar DO Onset: 09/24/2014 Generalized anxiety disorder Jose Miguel Andujar DO Onset: 01/26/2015 Microscopic colitis Kayla Whitten MD Onset: 06/22/2017 History of cerebrovascular accident without Kayla Whitten MD Onset: 01/23 residual deficits Proteinuria Kayla Whitten MD Onset: 01/23/2018 Age related macular degeneration Kayla Whitten MD Onset: 01/23/2018 Viral disease Kayla Whitten MD Onset: 08/08/2018 Long-term current use of anticoagulant Kayla Whitten MD Onset: 08/08/2018 Ex-smoker Kayla Whitten MD Onset: 08/22/2018 Paroxysmal atrial fibrillation Kayla Whitten MD Onset: 08/22/2018 Social History Type Date Description Comments Sex Unknown Cigarette Use Negative For Currently smokes 1-5 Cigarettes Daily Tobacco Use Start: Unknown End: Patient is a former Quit smoking with [facility] sm[place] [facility] [place] smoked < 1-5 cig per day, not eligible for lung cance rscreening Smoking Status Reviewed: 10/18/18 Patient is a former Quit smoking with [facility] smoker [facility] ; smoked < 1-5 cig per day, [...] nightly Clopidogrel take one tablet 90tabs Z86.73 [place], 06/22/2017 Bisulfate daily. MD Kayla 75mg Tablets Metformin HCL take 1 tablets by 180tabs E11.9 Whitten, 01/26/2015 500mg mouth twice daily MD Kayla Tablets with first bite of meal Atorvastatin Calcium take 1 tablet by 30tabs E78.2 Whitten, 07/23/2014 mouth every day MD Kayla 20mg Tablets Calcium + D3 Calcium With D Unknown 600/100 One PO qd [id number] Tablets Metoprolol Tartrate 1 by mouth twice a 60tabs I10 Maria Dolores, day effective MD Kayla 25mg Tablets I48.0 Phospha 250 Neutral take 1 tablet by 60tabs E11.69 Kayla Whitten MD mouth twice [id number] Tablets daily I10 Glipizide take one tablet [...] 1 by mouth every 90tabs E11.9 Kayla Whitten, 2.5mg Tablets day I10 Exelon 1 to chest wall q 30units F03.90 Nuno White MD 9.5mg/24HR Patches 24 hours 24HR Citalopram Hydrobromide 1 by mouth every F41.1 Nuno White MD 10mg day Tablets History Medications Metoprolol Tartrate take 1 tablet by I48.91 Inder Ford 09/26/2018 - mouth twice a day 10/18/2018 50mg Tablets I48.0 I10 Immunizations CPT Code Status Date Vaccine Reaction Lot # [id number] Given 03/05/2018 Influenza Virus Vaccine,Quadrivalent,Split,Pr eserv Free, 0.5mL,[place] [address] Given 05/11/2017 [facility] 65 [facility], Over Preservative & Rt 281 Antibiotic Free 35394 Given 03/11/2015 [facility] Over Preservative & Antibiotic Free 28440 Given 01/26/2015 Prevnar 13 Pneumococal [id number] Conjugate Vaccine 25935 Given 03/27/2014 Afluria Or Fluvirin Flu Vac Intramuscular 16619 Given 05/06/2009 Pneumococcal 23 Immunization Adult Or Immunosuppressed Patient 31467 Given 03/26/2008 Afluria Or Fluvirin Flu Vac Intramuscular 74405 Given 04/02/2007 Afluria Or Fluvirin Flu Vac Intramuscular 08309 Given 04/02/2007 Afluria Or Fluvirin Flu Vac Intramuscular 89652 Given 04/02/2007 Afluria Or Fluvirin Flu Vac Intramuscular 62457 Given 04/24/2006 Afluria Or Fluvirin Flu Vac Intramuscular 70811 Given 08/15/2005 Tetanus And Diptheria Toxoid 7 Years And Older Preserv Free 63617 Given 04/07/2005 Afluria Or Fluvirin Flu Vac Intramuscular 50750 Given 03/21/2003 Afluria Or Fluvirin Flu Vac Intramuscular 48026 Refused 03/20/2019 Fluzone Highdose Age 65 And Over AWARE CAN GET AT PHARMACY Preservative & Antibiotic Free 95110 Refused 03/20/2019 Tdap (Adacel) Ages 7 And Above Only 19450 Refused 03/20/2019 Shingrix (Shingles) Zoster AWARE AIR ANALYST GET AT PHARMACY Vaccine HZV, Recombinant, Subunit, Adj Vital Signs Date Vital Result Comment 03/20/2019 11:03am Body Temperature 98.1 F Weight 158.00 lb Heart Rate 70 /min BP Systolic 120 mmHg BP Diastolic 70 mmHg Respiratory Rate 18 /min Height 66 inches 5'6" O2 % BldC Oximetry 96 % Ra BMI (Body Mass Index) 25.5 kg/m2 03/08/2019 2:34pm Weight 157.00 lb Heart Rate 72 /min BP Systolic 122 mmHg BP Diastolic 72 mmHg Respiratory Rate 18 /min Height 66 inches 5'6" BMI (Body Mass Index) 25.3 kg/m2 Results Test Date Facility Test Result H/L Range Note Laboratory test 03/20/2019 [facility] <pending> finding Laboratory test 03/08/2019 [facility] Glucose Poc 194 mg/dL High 70- 140 finding Hemoglobin A1c 03/08/2019 [facility] Hgb A1c MFr 6.6 % High 4.0-6.0 Bld Est. average glucose Bld gHb Est-mCnc 143 mg/dL High <126 CBC with Auto Diff-fcmg 11/30/2018 [facility] WBC [...] 0.1 K/uL 0.0-0.3 Comprehensive Met Panel-FCMG 11/30/2018 [facility] Sodium 142 mmol/L 135- 146 1 Potassium 4.8 mmol/L 3.5-5.2 Chloride# 106 mmol/L 97-110 2 Carbon Dioxide 31 mmol/L 24-34 Calcium 10.2 mg/dL 8.5-10.5 3 Glucose 48 mg/dL Critical low 70-105 4 BUN 30 mg/dL High 6-26 Creatinine 0.9 mg/dL 0.5-1.4 Total Protein 6.6 g/dL 6.0-8.0 Albumin 4.3 g/dL 3.6-4.9 Globulin 2.3 g/dL 2.0-3.5 A/G Ratio 1.9 Ratio 1.0-2.2 Total Bilirubin 0.3 mg/dL 0.1-1.3 Alkaline Phosphatase 134 U/L 24-140 Alt 40 U/L 3-42 Ast 38 U/L 8-42 Anion Gap 5 mmol/L 5-15 5 Female Egfr 64 >60 6 Male Egfr 82 >60 7 Phenytoin Free/Total-RL 11/30/2018 [facility] Phenytoin Free 1.2 ug/mL 8 Phenytoin Total 11.0 ug/mL 9 % Free Phenytoin 10.9 % 10 Laboratory test finding 11/30/2018 [facility] Phosphorus 3.4 mg/dL 2.5-5.0 11 Iron Panel 11/30/2018 [facility] Iron, Total 124 g/dL 65-175 Transferrin 261.0 mg/dL 203.0-362.0 Tibc (calc) 365 g/dL 261-478 % Iron Saturation 33.9 % 13.0-45.0 Laboratory test finding 11/06/2018 [facility] Glucose Poc 120 mg/dL 70 -140 Hemoglobin A1c 11/06/2018 [facility] Hgb A1c MFr Bld 5.7 % 4.0-6.0 Est. average glucose Bld gHb Est-mCnc 117 mg/dL <126 Laboratory test 10/08/2018 [facility] Phosphorous 2.9 mg/ dL Normal 2.5-4.0 12 finding (315)- - Magnesium 2.0 mg/dL Normal 1.8-2.4 Basic Metabolic 10/08/2018 [facility] Glucose 95 mg/dL Normal 74-106 Panel (315)- - BUN 19 mg/dL High 7-18 Creatinine 0.5 mg/dL Low 0.6-1.3 Glom Filtration Rate, Estimate >60 mL/min >60 If >60 mL/min >60 13 BUN/Creat 38.0 ratio Sodium 142 mmol/L Normal 136-145 Potassium 3.3 mmol/L Low 3.5-5.1 Chloride 112 mmol/L High 98-107 Carbon Dioxide 23 mmol/L Normal 21-32 Anion Gap 7 mEq/L Low 8-16 Calcium 9.0 mg/dL Normal 8.5-10.1 CBS W/Automated 10/08/2018 [facility] White Blood 6.4 K/ uL Normal 3.4-10.5 Diff (315)- - [...] 33.0-73.0 Lymph % 18.4 % Low 20.0-42.0 [place] % 10.7 % High 0.0-10.0 Eo% 3.3 % Normal 0.0-6.6 Bas% 0.6 % Normal 0.0-1.1 Immature Grans 0.5 % Normal 0.0-5.0 NRBC % 0.0 /100WBC < 10/ 100 WBC Neut# 4.23 K/uL Normal 1.8-7.0 Lymph # 1.17 K/uL Normal 1.0-4.0 [place] # 0.68 K/uL Normal 0.0-0.8 Eos # 0.21 K/uL Normal 0.0-0.5 Baso # 0.04 K/uL Normal 0.0-0.1 Immature Grans Absolute 0.03 K/uL NRBC # 0.00 K/uL CBS W/Automated 10/07/2018 [facility] White Blood 6.2 K/ uL [...] 33.0-73.0 Lymph % 19.0 % Low 20.0-42.0 [place] % 10.5 % High 0.0-10.0 Eo% 3.2 % Normal 0.0-6.6 Bas% 0.5 % Normal 0.0-1.1 Immature Grans 0.5 % Normal 0.0-5.0 NRBC % 0.0 /100WBC < 10/ 100 WBC Neut# 4.13 K/uL Normal 1.8-7.0 Lymph # 1.18 K/uL Normal 1.0-4.0 [place] # 0.65 K/uL Normal 0.0-0.8 Eos # 0.20 K/uL Normal 0.0-0.5 Baso # 0.03 K/uL Normal 0.0-0.1 Immature Grans Absolute 0.03 K/uL NRBC # 0.00 K/uL Basic Metabolic 10/07/2018 [facility] Glucose 97 mg/dL Normal 74-106 Panel (315)- - BUN 14 mg/dL Normal 7-18 Creatinine 0.5 mg/dL Low 0.6-1.3 Glom Filtration Rate, Estimate >60 mL/min >60 If >60 mL/min >60 14 BUN/Creat 28.0 ratio Sodium 142 mmol/L Normal 136-145 Potassium 3.6 mmol/L Normal 3.5-5.1 Chloride 110 mmol/L High 98-107 Carbon Dioxide 23 mmol/L Normal 21-32 Anion Gap 9 mEq/L Normal 8-16 Calcium 9.0 mg/dL Normal 8.5-10.1 Laboratory test 10/07/2018 [facility] Phosphorous 3.1 mg/ dL Normal 2.5-4.0 finding (315)- - Magnesium 1.9 mg/dL Normal 1.8-2.4 CBS W/Automated 10/06/2018 [facility] White Blood 6.6 K/ uL Normal 3.4-10.5 [...] 33.0-73.0 Lymph % 17.0 % Low 20.0-42.0 [place] % 11.1 % High 0.0-10.0 Eo% 2.7 % Normal 0.0-6.6 Bas% 0.6 % Normal 0.0-1.1 Immature Grans 0.8 % Normal 0.0-5.0 NRBC % 0.0 /100WBC < 10/ 100 WBC Neut# 4.50 K/uL Normal 1.8-7.0 Lymph # 1.13 K/uL Normal 1.0-4.0 [place] # 0.74 K/uL Normal 0.0-0.8 Eos # 0.18 K/uL Normal 0.0-0.5 Baso # 0.04 K/uL Normal 0.0-0.1 Immature Grans Absolute 0.05 K/uL NRBC # 0.00 K/uL Basic Metabolic Panel 10/06/2018 [facility] Glucose 110 mg/dL High 74-106 (315)- - BUN 17 mg/dL Normal 7-18 Creatinine 0.6 mg/dL Normal 0.6-1.3 Glom Filtration Rate, Estimate >60 mL/min >60 If >60 mL/min >60 15 BUN/Creat 28.3 ratio Sodium 141 mmol/L Normal 136-145 Potassium 3.8 mmol/L Normal 3.5-5.1 Chloride 109 mmol/L High 98-107 Carbon Dioxide 26 mmol/L Normal 21-32 Anion Gap 6 mEq/L Low 8-16 Calcium 9.0 mg/dL Normal 8.5-10.1 Reflex add FT3? N Reflex add FT4? Y Phosphorous 10/06/2018 [facility] Phosphorous 3.0 mg/dL Normal 2.5-4.0 (315)- - Reflex add FT3? N Reflex add FT4? Y Magnesium 10/06/2018 [facility] Magnesium 2.0 mg/dL Normal 1.8-2.4 (315)- - Reflex add FT3? N Reflex add FT4? Y TSH Reflex FT4 10/06/2018 [facility] Thyroid Stim 0.11 uIU/mL Low 0.30-4.20 And/Or FT3 (315)- - Hormone Reflex add FT3? N Reflex add FT4? Y Free T4 10/06/2018 [facility] Free T4 0.92 ng/dL Normal 0.76-1.46 (315)- - Reflex add FT3? N Reflex add FT4? Y Glycohemoglobin A1c 10/05/2018 [facility] Glycohemoglobin 5.9 % Normal 4.2-6.3 16 (315)- - (A1c) eAG 123 mg/dL CBC 10/04/2018 [facility] White Blood Count 8.0 K/uL Normal 3.4-10.5 17 (315)- - Red Blood Count 3.58 M/uL [...] /100WBC < 10/ 100 WBC Comprehensive 10/04/2018 [facility] Glucose 140 mg/dL High 74-106 18 Metabolic Panel (315)- - BUN 20 mg/dL High 7-18 Creatinine 0.5 mg/dL Low 0.6-1.3 Glom Filtration Rate, Estimate >60 mL/min >60 If >60 mL/min >60 19 BUN/Creat 40.0 ratio Sodium 141 mmol/L Normal [...] 182 U/L High 45-117 Laboratory test 10/04/2018 [facility] Phosphorous 2.9 mg/ dL Normal 2.5-4.0 finding (315)- - Magnesium 1.9 mg/dL Normal 1.8-2.4 C-Reactive Protein,Quant 21.2 mg/L High <3.0 Laboratory test 10/03/2018 [facility] Phenytoin 9.0 ug/ mL Low 10.0-20.0 20 finding (315)- - (Dilantin) 1 Updated reference range on new analyzer 2 Updated reference range on new analyzer 3 Updated reference range 10-03-2018 4 Critical Result [id number] Verified by repeat analysis and Called to: ROLAND at: 11/30/2018 14:01:28 by:BEN SAAVEDRA 5 Updated Reference Range 6 Concerning GFR Guidelines for Americans: Normal function or mild renal disease, if clinically at risk: >/= 60 mL/min Moderately decreased: 30-59 Severely decreased: 15-29 Renal failure: <15 There is reduced accuracy above 60ml/min/1.73 m squared, but the numeric value may be clinically useful in the near 60 range 7 Concerning GFR Guidelines: Normal function or mild [...] drugs that are excreted by the kidneys. 8 Reference range: 1.0 to 2.5 9 Reference range: 10.0 to 20.0 10 Reference range: 8.0 to 14.0 INTERPRETIVE INFORMATION: [...] optimization. Test developed and characteristics determined by [facility]. See Compliance Statement B: [facility]/CS Performed by [facility], [address] [place] [address] [email or web address], Tor Kowalski MD, Lab. Director Unless otherwise specified, testing performed by [facility] [address] [place] [id number] 11 in 1-2 weeks stopping phos 12 FALLS, UTI, CELLULITIS 13 Note: Persistent reduction for 3 months or more in an eGFR <60 mL/min/1.73 m2 defines CKD. Patients with eGFR values >/=60 mL/min/1.73 m2 may also have CKD if evidence of persistent proteinuria is present. The original MDRD equation for estimated GFR is not valid for patients less than 18 years of age. Additional information may be found at www.[email or web address]. 14 Note: Persistent reduction for 3 months or more in an eGFR <60 mL/min/1.73 m2 defines CKD. Patients with eGFR values >/=60 mL/min/1.73 m2 may also have CKD if evidence of persistent proteinuria is present. The original MDRD equation for estimated GFR is not valid for patients less than 18 years of age. Additional information may be found at www.[email or web address]. 15 Note: Persistent reduction for 3 months or more in an eGFR <60 mL/min/1.73 m2 defines CKD. Patients with eGFR values >/=60 mL/min/1.73 m2 may also have CKD if evidence of persistent proteinuria is present. The original MDRD equation for estimated GFR is not valid for patients less than 18 years of age. Additional information may be found at www.[email or web address]. 16 Elevated levels of HbA1c suggest the need for more aggressive treatment of glycemia. The [place] Diabetes Association recommends that a primary goal of therapy should be a HbA1c of <7% and that physicians should re-evaluate the treatment regimen in patients with HbA1c values consistently >8%. 17 FALLS,UTI,CELLULITIS 18 FALLS, UTI, CELLULITIS 19 Note: Persistent reduction for 3 months or more in an eGFR <60 mL/min/1.73 m2 defines CKD. Patients with eGFR values >/=60 mL/min/1.73 m2 may also have CKD if evidence of persistent proteinuria is present. The original MDRD equation for estimated GFR is not valid for patients less than 18 years of age. Additional information may be found at www.[email or web address]. 20 FALLS,UTI,CELLULITIS Procedures Date Code Description Status 03/20/2019 06671 Measure Blood Oxygen Level Single Determination Completed 10/18/2018 46528 Electrocardiogram Complete Completed 07/01/2016 94903483 Colonoscopy Completed Medical Devices Description No Information Available Encounters Type Date Location Provider Dx Diagnosis Office Visit 03/08/2019 [facility] Shirley Umanzor PA W01.0xxD Fall same lev from 2:30p slip/trip w/o strike against object, subs G40.909 Epilepsy, unsp, not intractable, without status epilepticus F03.90 Unspecified dementia without behavioral disturbance Z68.25 Body mass index (BMI) 25.0-25.9, adult Office Visit 11/21/2018 3:00p [facility] Kalya Whitten MD I10 Essential ( primary) hypertension I48.0 Paroxysmal atrial fibrillation E11.9 Type 2 diabetes mellitus without complications E11.69 Type 2 diabetes mellitus with other specified complication D64.9 Anemia, unspecified Office Visit 10/18/2018 9:00a [facility] Kalya Whitten MD N30.01 Acute cystitis with hematuria R29.6 [...] Z87.891 Personal history of nicotine dependence Z79.01 custodial (current) use of anticoagulants I48.0 Paroxysmal atrial [...] bundle-branch block Assessments Date Code Description Provider 03/20/2019 G40.909 Epilepsy, unspecified, not intractable, Kayla Whitten MD without status epile 03/20/2019 F03.90 Unspecified dementia without behavioral Kayla Whitten MD disturbance 03/20/2019 I10 Essential (primary) hypertension Kayla Whitten MD 03/20/2019 D64.9 Anemia, unspecified Kayla Whitten MD 03/20/2019 I48.0 Paroxysmal atrial fibrillation Kayla Whitten MD 03/20/2019 E11.9 Type 2 diabetes mellitus without Kayla Whitten MD complications 03/20/2019 E11.69 Type 2 diabetes mellitus with other Kayla Whitten MD specified complication 03/20/2019 K80.67 Calculus of gallbladder and bile duct Kayla Whitten MD with acute and chronic 03/20/2019 F41.1 Generalized anxiety disorder Kayla Whitten MD 03/20/2019 R80.9 Proteinuria, unspecified Kayla Whitten MD 03/20/2019 Z87.891 Personal history of nicotine dependence Kayla Whitten MD 03/20/2019 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 Kayla Whitten MD 03/20/2019 E78.2 Mixed hyperlipidemia Kayla Whitten MD 03/20/2019 K21.9 Gastro-esophageal reflux disease without Kayla Whitten MD esophagitis 03/20/2019 H35.30 Unspecified macular degeneration Kayla Whitten MD 03/20/2019 Z86.73 Personal history of transient ischemic Kayla Whitten MD attack (TIA), and cer 03/20/2019 K52.838 Other microscopic colitis Kayla Whitten MD 03/20/2019 Z02.89 Encounter for other administrative Kayla Whitten MD examinations 03/20/2019 Z23 Encounter for immunization Kayla Whitten MD 03/20/2019 Z68.25 Body mass index (BMI) 25.0-25.9, adult Kayla Whitten MD 03/20/2019 D64.9 Anemia, unspecified Schedule, Laboratory 03/20/2019 E78.2 Mixed hyperlipidemia Schedule, Laboratory 03/08/2019 W01.0xxD Fall on same level from slipping, Shirley Umanzor PA tripping and stumbling without subsequent striking against object, subsequent encounter 03/08/2019 G40.909 Epilepsy, unspecified, not intractable, Shirley Umanzor PA without status epile 03/08/2019 F03.90 Unspecified [...] epi 11/21/2018 I10 Essential (primary) hypertension Kayla Whitten MD 11/21/2018 I48.0 Paroxysmal atrial fibrillation Kayla Whitten MD 11/21/2018 E11.9 Type 2 diabetes mellitus without Kayla Whitten MD complications 11/21/2018 E11.69 Type 2 diabetes mellitus with other Kayla Whitten MD specified complication 11/21/2018 D64.9 Anemia, unspecified Kayla Whitten MD 10/18/2018 N30.01 Acute cystitis with hematuria Kayla Whitten MD 10/18/2018 R29.6 Repeated falls Kayla Whitten MD 10/18/2018 Z00.01 Encounter for general adult medical Kayla Whitten MD examination with abnorma 10/18/2018 S72.001D Fracture of unspecified part of neck of Kayla Whitten MD RIGHT femur, subsequ 10/18/2018 K80.67 Calculus of gallbladder and bile duct Kayla Whitten MD with acute and chronic 10/18/2018 I10 Essential (primary) hypertension Kayla Whitten MD 10/18/2018 E03.9 Hypothyroidism, unspecified Kayla Whitten MD 10/18/2018 F41.1 Generalized anxiety disorder Kayla Whitten MD 10/18/2018 R80.9 Proteinuria, unspecified Kayla Whitten MD 10/18/2018 G40.909 Epilepsy, unspecified, not intractable, Kayla Whitten MD without status epile 10/18/2018 F03.90 Unspecified dementia without behavioral Kayla Whitten MD disturbance 10/18/2018 Z87.891 Personal history of nicotine dependence Kayla Whitten MD 10/18/2018 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 Kayla Whitten MD 10/18/2018 I48.0 Paroxysmal atrial fibrillation Kayla Whitten MD 10/18/2018 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) 10/18/2018 E78.2 Mixed hyperlipidemia Kayla Whitten MD 10/18/2018 E11.69 Type 2 diabetes mellitus with other Kayla Whitten MD specified complication 10/18/2018 K21.9 Gastro-esophageal reflux disease without Kayla Whitten MD esophagitis 10/18/2018 H35.30 Unspecified macular degeneration Kayla Whittne MD 10/18/2018 Z86.73 Personal history of transient ischemic Kayla Whitten MD attack (TIA), and cer 10/18/2018 E11.9 Type 2 diabetes mellitus without Kayla Whitten MD complications 10/18/2018 K52.838 Other microscopic colitis Kayla Whitten MD 10/18/2018 I45.10 Unspecified RIGHT bundle-branch block Kayla Whitten MD Plan of Treatment Future Appointment(s):10/21/2019 2:00 pm - Kayla Whitten MD at [facility]2018 - Kayla Whitten MDG40.909 Epilepsy, unspecified, not intractable, without status epileComments:remains seizure free, continues f/u with neurologist, continue to monitor labs care with Malick Tatum, was dr Stephens up:labs today ;next visit 10/2019 for 30min annual [facility] wellness and labs after visit, ekg on zcrlhvqI49.90 Unspecified dementia without behavioral disturbanceComments:dementiapt continues to live in supported environment and remains stable per staffcontinues on exelon patchFollnata up: Followup:. (Follow up)I10 Essential (primary) hypertensionComments:Htn--BPs appear stable and in good control, reminded goal of BP < 130/80 ideally per new guidelines. Continue current meds, please call for medication side effects such as cough, rash or any concerns. Encouraged diet modified in fat and no added salt. Limit alcohol to < 1 per day. Encouraged regular exercise of 30 min most days per week. Encouraged pt to continue to monitor BP and call if &gt ; 140/90 on a regular basis. Please call if you feel your blood pressure is under 110 systolicand/or causing you symptoms such as dizziness, lightheadedness, or other concerns.D64.9 Anemia, njfralmnknrH73.0 Paroxysmal atrial fibrillationComments:no evidence for afib after work up with cardiology. off eliquis, continues clopidigrel, seek care for gguckkfqP51.9 Type 2 diabetes mellitus without complicationsComments:DM--You have stable control per helen Please check fingersticks once daily in the morning before breakfast. The goal is 80 - 130. Please check an occasional fs about 2 hours after a meal, goal should be under 140. Please call if there is recurrent hypoglycemia of fingersticks under 80 more than 1 every few weeks or high sugar readings over 130 regularlyWe discussed signs and symptoms of high and low sugars and how to treat and call if you have concerns. Continue current medications. Please bring a copy of your fingerstick readings to every visit. Please continue your medications. Continue totarget hgba1c < 7Continue statin therapy. Continue to target blood pressure < 130/80.Please check your feet daily. Please see the optho/eye doc orflawzcC29.69 Type 2 diabetes mellitus with other specified xgrrrtamyaloQ00.67 Calculus of gallbladder and bile duct with acute and chronicComments:continued fistulacare with Dr Besticonsidering surgery but there is concern for perioperative complications due to patient's cognitive abilitieskeep area covered, frequent hand sweiafkR76.1 Generalized anxiety disorderComments:anxietysymptoms controlled with current medicationsdeclines stopping meds as feeling well and failedprior withdrawal. care with Dr White they ask for meds to sedat for ct scan, please obtain from dr Barnett80.9 Proteinuria, unspecifiedComments:continue good hydrations, target 2 qrts total fluid per day, keep bp under 130/80, lower is betterrecheck as pbrcyC85.891 Personal history of nicotine dependenceComments:former smoker, congratulations are offered, he is doing well and has supportive gqflcW04.01 custodial (current ) use of eguzxyeqqfjugmD05.2 Mixed hyperlipidemiaComments:high cholpatient is higher risk check labs continue current meds. monitor for side effects of muscleaches or crampswe watch for liver effects with labsPlease call if you have any concerns.off aspirin,taking clopidigrel . For lifestyle, we also recommend: Low fat ( under 30gm per day), low chol diet ( under 300mg per day chol)focus on lean meat, nonfat 1% dairy, increased veg and fruit, whole grainsweight lossexercise build to at least 30min per day. Reviewed signs and symptoms of cardiovascular disease.K21.9 Gastro-esophageal reflux disease without esophagitisComments:GERD/esophagitis--Symptoms moderately well controlled on current acid jake therapy. Reminded pt we need to control the symptoms as those symptoms would be signs of gastric acid eroding on the esophagus, which can lead to complications. Call if has heartburn more than 2 - 3 times per week. Pt should take meds to control any break through symptoms. Please be sure to take your acid jake 30minbefore a meal. Cautioned risks for malabsorption certain vits and possible group home risks for edrwwcfdG81.30 Unspecified macular degenerationComments:care with [facility] QlmpoirU83.73 Personal history of transient ischemic attack (TIA), and cerComments:Personal history TIA without residual deficits. Continue anticoagRecommend good blood pressure control to reduce further risks. Reviewed signs/symptoms ruqoznQ82.838 Other microscopic colitisComments: colitiscare with Dr Rodgers, pt has diarrhea occasionallycall if worsens, consider cutting jefbvanrgH97.89 Encounter for other administrative examinationsComments: adult day care forms complete, [facility] compelted cc to [id number] Encounter for immunizationComments:may have tdap, Shingrix series and Flu vax at pvdwfttaU60.25 Body mass index (BMI) 25.0-25.9, adultComments:Recommend healthy reduced calorie diet and regular exercise. Functional Status Description No Information Available Mental Status Description No Information Available Referrals Description No Information Available
--- OUTSIDE RECORDS SUMMARY | 2019-04-20 10:46 | XMS REPORT | Continuity of Care Document ---
:1940 External Reference #:[id number] Author Name Shirley Umanzor, LEILANI Address [address] [place] [address] Care Team Providers Name Role Phone Marcus Munoz M.D. Care Team Information Echocardiography Radiology Technologist [phone] Nuno White MD Care Team Information Echocardiography Radiology Technologist [phone] Jakob Barba MD - Surgery Care Team Information Echocardiography Radiology Technologist [phone] [facility] - Care Team Information Echocardiography Radiology Technologist [phone] Endocrinology, Diabetes & Metabolism Ana M Sears MD - Neurology Care Team Information Echocardiography Radiology Technologist Jakob Stockton MD Care Team Information Echocardiography Radiology Technologist [phone] - Urology Care Team Information Echocardiography Radiology Technologist [phone] Inder Ford - Cardiovascular Care Team Information Echocardiography Radiology Technologist Disease Jarad Fournier M.D. Care Team Information Echocardiography Radiology Technologist [phone] Bianca Angulo Care Team Information Echocardiography Radiology Technologist [phone] Problems Active Problems Provider Date Hypothyroidism Jose [...] Patient is a former [facility] care [facility] ; smoked < 1-5 cig per day, not eligible for lung cance rscreening Smoking Status Reviewed: 10/18/18 Patient is a former Quit smoking with [facility] smoker [facility] ; smoked < 1-5 cig per day, [...] nightly Clopidogrel take one tablet 90tabs Z86.73 [place], 06/22/2017 Bisulfate daily. MD Kayla 75mg Tablets Metformin HCL take 1 tablets by 180tabs E11.9 Whitten, 01/26/2015 500mg mouth twice daily MD Kayla Tablets with first bite of meal Atorvastatin Calcium take 1 tablet by 30tabs E78.2 Whitten, 07/23/2014 mouth every day MD Kayla 20mg Tablets Metoprolol Tartrate 1 by mouth twice a 60tabs I10 Maria Dolores, day effective MD Kayla 25mg Tablets I48.0 Phospha 250 Neutral take 1 tablet by 60tabs E11.69 Kayla Whitten MD mouth twice [phone] Tablets daily I10 Glipizide take one tablet by E11.9 [facility] 10mg Tablets mouth qd in the Center morning Glucose Meter Test check blood sugar E11.9 Unknown Strips Advanced once daily and as Strips needed--per [facility] Feet Check For Concerns as needed Unknown Vital Signs last monday of Unknown each month Phenytoin Sodium 2 po bid G40.909 Unknown Extended 100mg Capsules Triple Antibiotic Plus as Needed Q 4 HR Unknown prn Ointment Blood Pressure Check qd Unknown Budesonide 3 by mouth every K52.838 Jamila Rodgers 3mg Caps DR Part day Acetaminophen 2 [...] Metoprolol Tartrate take 1 tablet by I48.91 QuefrankInder 09/26/2018 - mouth twice a day 10/18/2018 50mg Tablets I48.0 I10 Immunizations CPT Code Status Date Vaccine Reaction Lot # 62105 Given 03/05/2018 Influenza Virus Vaccine,Quadrivalent,Split,Pr eserv Free, 0.5mL,[place] [address] Given 05/11/2017 Fluzone Highdose Age 65 And Given at [facility], Over Preservative & Rt 281 Antibiotic Free 46686 Given 03/11/2015 Fluzone Highdose Age 65 And [facility] Over Preservative & Antibiotic Free 95871 Given 01/26/2015 Prevnar 13 Pneumococal [id number] Conjugate Vaccine 81045 Given 03/27/2014 Afluria Or Fluvirin Flu Vac Intramuscular 51852 Given 05/06/2009 Pneumococcal 23 Immunization Adult Or Immunosuppressed Patient 51813 Given 03/26/2008 Afluria Or Fluvirin Flu Vac Intramuscular 25560 Given 04/02/2007 Afluria Or Fluvirin Flu Vac Intramuscular 34091 Given 04/02/2007 Afluria Or Fluvirin Flu Vac Intramuscular 60134 Given 04/02/2007 Afluria Or Fluvirin Flu Vac Intramuscular 86630 Given 04/24/2006 Afluria Or Fluvirin Flu Vac Intramuscular 00130 Given 08/15/2005 Tetanus And Diptheria Toxoid 7 Years And Older Preserv Free 49366 Given 04/07/2005 Afluria Or Fluvirin Flu Vac Intramuscular 00632 Given 03/21/2003 Afluria Or Fluvirin Flu Vac Intramuscular Vital Signs Date Vital Result Comment 03/08/2019 2:34pm Weight 157.00 lb Heart Rate 72 /min BP Systolic 122 mmHg BP Diastolic 72 mmHg Respiratory Rate 18 /min Height 66 inches 5'6" BMI (Body Mass Index) 25.3 kg/m2 11/21/2018 3:51pm Weight 146.00 lb Heart Rate 68 /min BP Systolic 120 mmHg BP Diastolic 60 mmHg Respiratory Rate 16 /min Height 66 inches 5'6" BMI (Body Mass Index) 23.6 kg/m2 Results Test Date Facility Test Result H/L Range Note Laboratory test 03/08/2019 [facility] Glucose Poc 194 mg/dL High 70- 140 finding Hemoglobin A1c 03/08/2019 [facility] Hgb A1c MFr Bld 6.6 % High [...] 11/30/2018 [facility] Sodium 142 mmol/L 135- 146 1 Potassium [...] 3.4 mg/dL 2.5-5.0 11 [facility], [facility] 124 g/dL 65-175 Transferrin 261.0 mg/dL 203.0-362.0 Tibc (calc) 365 g/dL 261-478 % Iron Saturation 33.9 % 13.0-45.0 Laboratory test finding 11/06/2018 [facility] Glucose Poc 120 mg/dL 70 -140 Hemoglobin A1c 11/06/2018 [facility] Hgb A1c MFr Bld 5.7 % 4.0-6.0 Est. average glucose Bld gHb Est-mCnc 117 mg/dL <126 CBS W/Automated 10/08/2018 [facility] White Blood 6.4 K/ uL Normal 3.4-10.5 12 Diff (315)- - Count Red Blood Count [...] 33.0-73.0 Lymph % 18.4 % Low 20.0-42.0 [place] % 10.7 % High 0.0-10.0 Eo% 3.3 % Normal 0.0-6.6 Bas% 0.6 % Normal 0.0-1.1 Immature Grans 0.5 % Normal 0.0-5.0 NRBC % 0.0 /100WBC < 10/ 100 WBC Neut# 4.23 K/uL Normal 1.8-7.0 Lymph # 1.17 K/uL Normal 1.0-4.0 [place] # 0.68 K/uL Normal 0.0-0.8 Eos # 0.21 K/uL Normal 0.0-0.5 Baso # 0.04 K/uL Normal 0.0-0.1 Immature Grans Absolute 0.03 K/uL NRBC # 0.00 K/uL Basic Metabolic 10/08/2018 [facility] Glucose 95 mg/dL Normal 74-106 [...] 9.0 mg/dL Normal 8.5-10.1 Laboratory test 10/08/2018 [facility] Phosphorous 2.9 mg/ dL Normal 2.5-4.0 finding (315)- - Magnesium 2.0 mg/dL Normal 1.8-2.4 Laboratory test 10/07/2018 [facility] Phosphorous 3.1 mg/ dL Normal 2.5-4.0 finding (315)- - Magnesium 1.9 mg/dL Normal 1.8-2.4 Basic Metabolic 10/07/2018 [facility] Glucose 97 mg/dL Normal 74-106 [...] Normal 8-16 Calcium 9.0 mg/dL Normal 8.5-10.1 [place] W/Automated 10/07/2018 [facility] White Blood 6.2 K/ uL Normal [...] 33.0-73.0 Lymph % 19.0 % Low 20.0-42.0 [place] % 10.5 % High 0.0-10.0 Eo% 3.2 % Normal 0.0-6.6 Bas% 0.5 % Normal 0.0-1.1 Immature Grans 0.5 % Normal 0.0-5.0 NRBC % 0.0 /100WBC < 10/ 100 WBC Neut# 4.13 K/uL Normal 1.8-7.0 Lymph # 1.18 K/uL Normal 1.0-4.0 [place] # 0.65 K/uL Normal 0.0-0.8 Eos # 0.20 K/uL Normal 0.0-0.5 Baso # 0.03 K/uL Normal 0.0-0.1 Immature Grans Absolute 0.03 K/uL NRBC # 0.00 K/uL CBS W/Automated 10/06/2018 [facility] White Blood 6.6 K/ uL [...] 33.0-73.0 Lymph % 17.0 % Low 20.0-42.0 [place] % 11.1 % High 0.0-10.0 Eo% 2.7 % Normal 0.0-6.6 Bas% 0.6 % Normal 0.0-1.1 Immature Grans 0.8 % Normal 0.0-5.0 NRBC % 0.0 /100WBC < 10/ 100 WBC Neut# 4.50 K/uL Normal 1.8-7.0 Lymph # 1.13 K/uL Normal 1.0-4.0 [place] # 0.74 K/uL Normal 0.0-0.8 Eos # 0.18 K/uL Normal 0.0-0.5 Baso # 0.04 K/uL Normal 0.0-0.1 Immature Grans Absolute 0.05 K/uL NRBC # 0.00 K/uL Basic Metabolic Panel 10/06/2018 [facility] Glucose 110 mg/dL High 74-106 [...] N Reflex add FT4? Y Phosphorous 10/06/2018 [facility] Phosphorous 3.0 mg/dL Normal 2.5-4.0 (315)- - Reflex add FT3? N Reflex add FT4? Y Magnesium 10/06/2018 [facility] Magnesium 2.0 mg/dL Normal 1.8-2.4 (315)- - Reflex add FT3? N Reflex add FT4? Y TSH Reflex FT4 10/06/2018 [facility] Thyroid Stim 0.11 uIU/mL Low 0.30-4.20 And/Or FT3 (315)- - Hormone Reflex add FT3? N Reflex add FT4? Y Free T4 10/06/2018 [facility] Free T4 0.92 ng/dL Normal 0.76-1.46 (315)- - Reflex add FT3? N Reflex add FT4? Y Glycohemoglobin A1c 10/05/2018 [facility] Glycohemoglobin 5.9 % Normal 4.2-6.3 16 (315)- - (A1c) eAG 123 mg/dL CBC 10/04/2018 [facility] White Blood Count 8.0 K/uL Normal 3.4-10.5 [...] /100WBC < 10/ 100 WBC Comprehensive 10/04/2018 [facility] Glucose 140 mg/dL High 74-106 18 Metabolic [...] 182 U/L High 45-117 Laboratory test 10/04/2018 [facility] Phosphorous 2.9 mg/ dL Normal 2.5-4.0 finding (315)- - Magnesium 1.9 mg/dL Normal 1.8-2.4 C-Reactive Protein,Quant 21.2 mg/L High <3.0 Laboratory test 10/03/2018 [facility] Phenytoin 9.0 ug/ mL Low 10.0-20.0 20 [...] optimization. Test developed and characteristics determined by [facility]. See Compliance Statement B: [email or web address] Performed by [facility], [address] [place] [address] [email or web address], Tor Kowalski MD, Lab. Director Unless otherwise specified, testing performed by [facility] [address] [place] [id number] 11 in 1-2 weeks stopping phos 12 [...] for more aggressive treatment of glycemia. The [place] [employer] recommends that a primary goal [...] 20 FALLS,UTI,CELLULITIS Procedures Date Code Description Status 10/18/2018 77419 Electrocardiogram Complete Completed 07/01/2016 51648351 Colonoscopy Completed Medical Devices Description No Information Available Encounters Type Date Location Provider Dx Diagnosis Office Visit 11/21/2018 [facility] Kayla Whitten MD I10 Essential (primary) 3:00p hypertension I48.0 Paroxysmal atrial fibrillation E11.9 Type 2 diabetes mellitus without complications E11.69 Type 2 diabetes mellitus with other specified complication D64.9 Anemia, unspecified Office Visit 10/18/2018 9:00a [facility] Kayla Whitten MD N30.01 Acute cystitis with hematuria [...] Z87.891 Personal history of nicotine dependence Z79.01 [facility] (current) use of anticoagulants I48.0 Paroxysmal atrial [...] bundle-branch block Assessments Date Code Description Provider 03/08/2019 W01.0xxD Fall on same level from [...] nicotine dependence Kayla Whitten MD 10/18/2018 Z79.01 [facility] (current) use of anticoagulants aKyla Whitten MD 10/18/2018 I48.0 Paroxysmal atrial fibrillation Kayla Whitten MD 10/18/2018 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) 10/18/2018 E78.2 Mixed hyperlipidemia Kayla Whitten MD 10/18/2018 E11.69 Type 2 diabetes mellitus with other Kayla Whitten MD specified complication 10/18/2018 K21.9 Gastro-esophageal reflux disease without Kayla Whitten MD esophagitis 10/18/2018 H35.30 Unspecified macular degeneration Kayla Whitten MD 10/18/2018 Z86.73 Personal history of transient ischemic Kayla Whitten MD attack (TIA), and cer 10/18/2018 E11.9 Type 2 diabetes mellitus without Kayla Whitten MD complications 10/18/2018 K52.838 Other microscopic colitis Kayla Whitten MD 10/18/2018 I45.10 Unspecified RIGHT bundle-branch block Kayla Whitten MD Plan of Treatment Future Appointment(s):03/20/2019 10:45 am - Kayla Whitten MD at [facility]2019 2:00 pm - Kayla Whitten MD at [facility]03/08/2019 - Shirley Umanzor, PAW01.0xxD Fall on same level from slipping, tripping and stumbling without subsequent striking against object, subsequent encounterComments:No signs of any injuryContinue to monitor for headache, dizziness, vision changesCall with any questions/concernsFollow up:PrnG40.909 Epilepsy, unspecified, not intractable, without status epileComments:Here with staffIn group homeF03.90 Unspecified dementia without behavioral disturbanceComments:Here with sqfrmT71.25 Body mass index (BMI) 25.0-25.9, adult Functional Status Description No Information Available Mental Status Description No Information Available Referrals Description No Information Available
[2019-04-20 10:58] VITALS: BP 123/54
--- NOTE | 2019-04-20 11:28 | UC ---
UC General HPI - HPI Summary HPI Summary: Pt is accompanied by halfwaymotor home electrical foreman. Pt is in NAD at time of PE. Caregiver reports that she was assisting pt in changing into clothes this morning and caregiver said she turned to do another task and then found pt had fallen from standing height. NO LOC no change in baseline behavior, small abrasion was cleaned and covered with bandaid at time of PE. - History of Current Complaint Chief Complaint: UCGeneralIllness Stated Complaint: EVALUATE S/P FALL Time Seen by Provider: 04/20/19 11:16 Hx Obtained From: Patient, Family/Enterprise Application Analyst Onset/Duration: Sudden Onset Onset Severity: Mild Current Severity: Mild Pain Intensity: 0 - Allergy/Home Medications Allergies/Adverse Reactions: Allergies Allergy/AdvReac Type Severity Reaction Status Date / Time aspirin Allergy Unknown Verified 04/20/19 10:50 Reaction Details levofloxacin Allergy Unknown Verified 04/20/19 10:50 Reaction Details Penicillins Allergy Unknown Verified 04/20/19 10:50 Reaction Details simvastatin Allergy Unknown Verified 04/20/19 10:50 Reaction Details Home Medications: Home Medications Calcium Carb, Citrate/Vit D3 [Calcium + D3 ER Tablet] 1 each PO DAILY 04/20/19 [ History Confirmed 04/20/19] Sod Phos Di, [place]/K Phos [place] [Phosphorous 250 mg Tablet] 250 mg PO BID [History Confirmed 04/20/19] metFORMIN* [Glucophage 500 MG TAB *] 500 mg PO BID 04/20/19 [History Confirmed 04/20/19] raNITIdine HCl [Ranitidine HCl] 150 mg PO DAILY 04/20/19 [History Confirmed ] PMH/Surg Hx/FS Hx/Imm Hx Previously Healthy: Yes - Surgical History Surgical History: Unable to Obtain/Confirm - Family History Known Family History: Positive: Unknown - pt unable to answer - Social History Occupation: Disabled Lives: Long-Term Alcohol Use: None Substance Use Type: None Smoking Status (MU): Former Smoker Type: Cigarettes Amount Used/How Often: 10 cig a day Have You Smoked in the Last Year: Yes When Did the Patient Quit Smoking/Using Tobacco: 2018 Household Exposure Type: Cigarettes - Immunization History Vaccination Up to Date: Yes Review of Systems All Other Systems Reviewed And Are Negative: Yes Constitutional: Positive: Negative Skin: Positive: Other - abrasion covered with bandaid Eyes: Positive: Negative ENT: Positive: Negative Respiratory: Positive: Negative Cardiovascular: Positive: Negative Gastrointestinal: Positive: Negative Genitourinary: Positive: Negative Motor: Positive: Negative - at baseline Neurovascular: Positive: Negative Musculoskeletal: Positive: Negative Neurological: Positive: Negative Psychological: Positive: Negative Is Patient Immunocompromised?: No Physical Exam Triage Information Reviewed: Yes Appearance: Well-Appearing, No Pain Distress, Well-Nourished Vital Signs: Initial Vital Signs Temp 97.5 F 04/20/19 10:51 Pulse 65 04/20/19 10:51 Resp 16 04/20/19 10:51 BP 123/54 04/20/19 10:51 Pulse Ox 100 04/20/19 10:51 Vital Signs Reviewed: Yes Eye Exam: Normal ENT: Positive: Hearing grossly normal Neck exam: Normal Respiratory Exam: Normal Cardiovascular Exam: Normal Cardiovascular: Positive: Pulses Normal Musculoskeletal Exam: Normal - at baseline, uses walker to assit with walking Neurological Exam: Normal Neurological: Positive: Alert Psychological Exam: Normal Skin Exam: Other - small abrasion to medial aspect of right elbow: covered with bandage. Course/Dx - Differential Dx - Multi-Symptom Differential Diagnoses: Other - abrasion, laceration - Diagnoses Provider Diagnosis: Abrasion of elbow, right, Fall Discharge ED - Sign-Out/Discharge Documenting (check all that apply): Patient Departure All imaging exams completed and their final reports reviewed: No Studies - Discharge Plan Condition: Stable Disposition: HOME Patient Education Materials: Fall Prevention for Older Adults (ED), Abrasion ( ED), Fall Prevention (ED) Referrals: Kayla Whitten MD [Primary Care Provider] - If Needed - Billing Disposition and Condition Condition: STABLE Disposition: Home
== END 2019-04-20 11:34 | disposition home or self-care (01) ==
LOC: UCCORT 10:37
DX: S50.311A Abrasion of right elbow, initial encounter (principal); Z88.0 Allergy status to penicillin; Z88.1 Allergy status to other antibiotic agents; Z88.6 Allergy status to analgesic agent; Z88.8 Allergy status to other drugs, medicaments and biological substances; Z87.891 Personal history of nicotine dependence; W18.30XA Fall on same level, unspecified, initial encounter; Y92.9 Unspecified place or not applicable
CPT/HCPCS: 99212; G0463